=== PATIENT | male | born 1945 | race Caucasian/White ===

== ENCOUNTER 2017-03-25 09:37 | Day surgery (SDC) | payer MEDICARE, OTHER ==
[2017-03-19 08:37] VITALS: BMI 24.0
[~2017-03-25 09:37] MED LIST: LACTATED RINGERS 1,000 ML IV SCH; LIDOCAINE 1% 20 ML VIAL (10MG/ML) FOR IV START INTRADERMA PRN
[2017-03-25 10:44] VITALS: RESP 16; TEMP 97.7
[2017-03-25] MEDS ORDERED: PROPOFOL 10 MG/ML 20 ML VIAL IV ONE (10:58)
[2017-03-25] MEDS ORDERED: LIDOCAINE 1% INJ 10MG/ML (20 ML MDV) ONE (10:58)
--- NOTE | 2017-03-25 11:13 | P.PCN ---
Date of Procedure: 03/25/17 Preoperative Diagnosis: Postoperative Diagnosis: Procedure(s) Performed: BRIEF HISTORY: Patient is a 71-year-old pleasant white male, scheduled for an elective colonoscopy as a part of screening for colorectal neoplasia. His strong family history of colon cancer diagnosed in his mother as well as her maternal grandmother and father at age 70. PROCEDURE PERFORMED: Colonoscopy. PREOPERATIVE DIAGNOSIS: Screening for colon cancer/family history of colon cancer IV sedation per Anesthesia. PROCEDURE: After informed consent was obtained, the patient, was brought into the endoscopy unit. IV sedation was administered by Anesthesia under continuous monitoring. Digital rectal examination was normal. Initially the Olympus CF- 160 flexible video colonoscope was then inserted in the rectum, gradually advanced into the cecum without any difficulty. Careful examination was performed as the scope was gradually being withdrawn. Ileocecal valve and the appendiceal orifice were visualized and appeared normal. Prep was excellent. Mucosa of the cecum, ascending colon, transverse colon, descending colon, sigmoid colon, and rectum appeared normal. Retroflexion was performed in the rectum and grade 2 internal hemorrhoids were seen. The patient tolerated the procedure well. IMPRESSION: Normal-appearing colon from rectum to cecum with no evidence of colorectal neoplasia . Grade 2 internal hemorrhoids. RECOMMENDATIONS: Findings of this examination were discussed with the patient as well as a family. He was advised to have a repeat screening coloscopy in 5 years because of the strong family history of colon cancer Implants: Indications for Procedure: Operative Findings: Description of Procedure:
[2017-03-25 11:34] VITALS: PULSE 78
[2017-03-25 11:50] VITALS: BP 133/84
== END 2017-03-25 12:07 | disposition home or self-care (01) ==
LOC: ORWHC2ENDO 09:37
PROVIDERS: ATTEND Internal Medicine Gastroenterology
DX: Z12.11 Encounter for screening for malignant neoplasm of colon (principal); K64.1 Second degree hemorrhoids; Z80.0 Family history of malignant neoplasm of digestive organs
CPT/HCPCS: J2001; J2704; G0105

== ENCOUNTER → 2018-07-05 | Outpatient (CLI) | payer MEDICARE ==
--- NOTE | 2018-07-05 16:30 | XR ---
EXAMINATION TYPE: XR chest 2V DATE OF EXAM: 07/05/2018 COMPARISON: NONE HISTORY: Cough TECHNIQUE: Frontal and lateral views of the chest are obtained. FINDINGS: Prominent lung volume may be indicative of underlying COPD. Arthropathy noted in the should ers. Spondylosis present in the thoracic spine. Aorta is dense. There is no focal air space opacity, pleural effusion, or pneumothorax seen. The cardiac silhouette size is within normal limits. The o sseous structures are intact. IMPRESSION: No acute cardiopulmonary process.
== END | disposition home or self-care (01) ==
LOC: RADXRMAIN 13:35
PROVIDERS: ATTEND Internal Medicine
DX: R05 Cough (principal)
CPT/HCPCS: 71046

== ENCOUNTER → 2019-07-04 | Outpatient (CLI) | payer MEDICARE ==
[2019-07-04 13:01] LABS: HCT 39.2 % (39.0-53.0); MCH 32.8 pg (25.0-35.0); MCHC 33.2 g/dL (31.0-37.0); MCV 98.6 fL (80.0-100.0); Mean Platelet Volume 5.3; Platelet Count 288 k/uL (150-450); RBC 3.98 m/uL (4.30-5.90); RDW 12.3 % (11.5-15.5); WBC 10.6 k/uL (3.8-10.6)
== END | disposition home or self-care (01) ==
LOC: LABPAT 12:05
PROVIDERS: ATTEND Surgery
DX: Z01.812 Encounter for preprocedural laboratory examination (principal)
CPT/HCPCS: 36415; 85027

== ENCOUNTER 2019-07-06 10:53 | Day surgery (SDC) | payer MEDICARE ==
[2019-07-01 11:49] VITALS: BMI 24.6
[~2019-07-06 10:53] MED LIST changes: +DEXAMETHASONE SOD PHOSPHATE 10 MG/ML 1 ML VIAL IV ONE; +HEPARIN SODIUM,PORCINE 5,000 UNIT/ML 1 ML VIAL SQ ONE; +ONDANSETRON 4 MG/2 ML VIAL IVP ONE
[2019-07-06] MEDS ORDERED: LIDOCAINE 1% 20 ML VIAL (10MG/ML) FOR IV START INTRADERMA ONE (11:55)
--- NOTE | 2019-07-06 12:35 | P.GSHP ---
History of Present Illness H&P Date: 07/06/19 Chief Complaint: Right inguinal hernia This is a 73-year-old male who presents today for laparoscopic robotic-assisted right inguinal hernia. Patient's vital tender mass in the right groin. Past Medical History Past Medical History: No Reported History Additional Past Medical History / Comment(s): inguinal hernia. History of Any Multi-Drug Resistant Organisms: None Reported Past Surgical History: Appendectomy Additional Past Surgical History / Comment(s): appendectomy at 14 yrs old. Past Anesthesia/Blood Transfusion Reactions: No Reported Reaction, Motion Sickness Additional Past Anesthesia/Blood Transfusion Reaction / Comment(s): . Past Psychological History: No Psychological Hx Reported Smoking Status: Never smoker Past Alcohol Use History: None Reported Past Drug Use History: None Reported - Past Family History Mother Family Medical History: Cancer Additional Family Medical History / Comment(s): COLON CANCER Medications and Allergies Home Medications Medication Instructions Recorded Confirmed Type Multivit-Min/FA/Lycopen/Lutein 1 each PO DAILY 07/01/19 07/06/19 History [Centrum Silver Tablet] Allergies Allergy/AdvReac Type Severity Reaction Status Date / Time No Known Allergies Allergy Verified 07/06/19 11:13 Surgical - Exam Vital Signs Temp Pulse Resp BP Pulse Ox 97.7 F 68 18 158/91 96 07/06/19 11:26 07/06/19 11:26 07/06/19 11:26 07/06/19 11:26 07/06/19 11:26 - General well developed, well nourished, no distress - ENT normal pinna - Neck no masses - Respiratory normal expansion - Cardiovascular Rhythm: regular - Abdomen Abdomen: soft, non tender Hernia: reducible (Reducible right inguinal hernia) Assessment and Plan Assessment: Right inguinal hernia. We'll perform laparoscopic robotic-assisted repair.
[2019-07-06] MEDS ORDERED: HYDROmorphone (PF) 1 MG/ML ONE (12:58)
[2019-07-06] MEDS ORDERED: fentaNYL (PF) 50 MCG/ML 2 ML AMP ONE (12:58)
[2019-07-06] MEDS ORDERED: LIDOCAINE 1% INJ 10MG/ML (20 ML MDV) ONE (12:58)
[2019-07-06] MEDS ORDERED: GLYCOPYRROLATE 0.2 MG/ML 2 ML VIAL ONE (12:58)
[2019-07-06] MEDS ORDERED: MIDAZOLAM 2 MG/2 ML VIAL ONE (12:58)
[2019-07-06] MEDS ORDERED: NEOSTIGMINE 1 MG/ML 10 ML VIAL ONE (12:58)
[2019-07-06] MEDS ORDERED: ROCURONIUM BROMIDE 10 MG/ML 10 ML VIAL IV ONE (12:58)
[2019-07-06] MEDS ORDERED: SUCCINYLCHOLINE CHLORIDE 100 MG/5 ML SYR IV ONE (12:58)
[2019-07-06] MEDS ORDERED: PROPOFOL 10 MG/ML 20 ML VIAL IV ONE (12:58)
[2019-07-06] MEDS ORDERED: LIDOCAINE 1%-EPI 1:100,000 20 ML VIAL SQ ONE (13:28)
[2019-07-06 14:16] VITALS: TEMP 97.4
--- NOTE | 2019-07-06 14:19 | P.OP ---
Date of Procedure: 07/06/19 Preoperative Diagnosis: Right inguinal hernia Postoperative Diagnosis: Right inguinal hernia Procedure(s) Performed: Laparoscopic robotic-assisted repair of right inguinal hernia Anesthesia: ALICIA Surgeon: Cam Charles Pathology: none sent Condition: stable Disposition: PACU Description of Procedure: The patient was placed on the operating table in the supine position. The patient received general anesthesia. The patient's abdomen was prepped and draped in usual sterile fashion. The skin was anesthetized 1% local Xylocaine at the incision sites. Using an 11 blade a skin incision was made at the umbilicus. The fascia was grasped with a [place] and then the peritoneal cavity was entered with the Veress needle. Position of the Veress needle was confirmed with a positive drop test. After adequate insufflation a 5 mm trocar was placed into the peritoneal cavity. The Laparoscope was placed the peritoneal cavity. And a robotic 8 mm trocar was placed in the right lateral position and then another 8 mm robotic trochars placed in the left lateral position. The original 5 mm trocar was exchanged for a 12 mm trocar. The patient was placed in reverse Trendelenburg and then the patient was docked to the robot. Next the peritoneum over top of the hernia was incised and then using blunt and sharp dissection and electrocautery the hernia sac was dissected free from the floor of the inguinal canal. The hernia sac was completely reduced into the peritoneal cavity. And then using the Pro edge baster mesh the hernia was repaired. The peritoneum was then sutured with 2-0V lock suture. The patient was then undocked the robot. The needle was withdrawn from the peritoneal cavity. The umbilical trocar site was closed with 0 Ethibond suture. The skin was closed interrupted 3-0 Monocryl suture. Dermabond dressing was applied. Patient was sent to recovery in stable condition.
[2019-07-06] MEDS: HYDROmorphone 0.5 MG/0.5 ML SYRINGE IVP PRN ×2 (14:23→14:33)
[2019-07-06 14:36] VITALS: RESP 16
[2019-07-06 18:09] VITALS: BP 137/86; PULSE 96
== END 2019-07-06 18:39 | disposition home or self-care (01) ==
LOC: OR 10:53
PROVIDERS: ATTEND Surgery
DX: K40.90 Unilateral inguinal hernia, without obstruction or gangrene, not specified as recurrent (principal)
CPT/HCPCS: 49650; C1781; J2250; J1644; J1100; J2710; J0690; J2405; J2001; J3010; J1170 ×2; J0330; J2704

== ENCOUNTER 2020-01-09 10:28 | Emergency (ER) | payer MEDICARE ==
[2020-01-09] MEDS ORDERED: ALBUTEROL HFA INHALER INHALATION STA (11:01)
--- NOTE | 2020-01-09 11:06 | ED ---
General Adult HPI - General Chief complaint: Shortness of Breath Stated complaint: cough Source: patient, RN notes reviewed, old records reviewed Mode of arrival: ambulatory Limitations: no limitations - History of Present Illness Initial comments: This is a 74-year-old male who presents emergency Department complaining of a 2 month history of difficulty breathing and shortness of breath per patient states his been getting progressively worse. Patient states he also is coughing up more more sputum over that same period of time. Patient denies any history of any lung problems she denies ever smoking. Patient denies any fever chills. Patient states he's had no chest pain or palpitations. Patient is he's having a difficult time being active because activity makes him more short of breath. Patient denies any swelling to his legs or calf tenderness. Patient has any recent trips or travel. Patient denies any abdominal pain patient's nausea vomiting diarrhea. - Related Data Home Medications Medication Instructions Recorded Confirmed Multivit-Min/FA/Lycopen/Lutein 1 each PO DAILY 07/01/19 07/06/19 [Centrum Silver Tablet] Previous Rx's Medication Instructions Recorded Docusate [Colace] 100 mg PO BID #20 capsule 07/06/19 HYDROcodone/APAP 5-325MG [[place] 1 tab PO Q6HR PRN #10 tab 07/06/19 5-325] Albuterol Inhaler [Ventolin Hfa 2 puff INHALATION RT-QID 10 Days 01/09/20 Inhaler] #2 puff Azithromycin [Zithromax Tri-Jose] 500 mg PO DAILY #3 tab 01/09/20 predniSONE [Deltasone] 40 mg PO DAILY #8 tab 01/09/20 Allergies Allergy/AdvReac Type Severity Reaction Status Date / Time No Known Allergies Allergy Verified 01/09/20 10:33 Review of Systems ROS Statement: Those systems with pertinent positive or pertinent negative responses have been documented in the HPI. ROS Other: All systems not noted in ROS Statement are negative. Past Medical History Past Medical History: No Reported History Additional Past Medical History / Comment(s): inguinal hernia. History of Any Multi-Drug Resistant Organisms: None Reported Past Surgical History: Appendectomy Additional Past Surgical History / Comment(s): appendectomy at 14 yrs old. Past Anesthesia/Blood Transfusion Reactions: No Reported Reaction, Taiwo juarez Additional Past Anesthesia/Blood Transfusion Reaction / Comment(s): . Past Psychological History: No Psychological Hx Reported Smoking Status: Never smoker Past Alcohol Use History: None Reported Past Drug Use History: None Reported - Past Family History Mother Family Medical History: Cancer Additional Family Medical History / Comment(s): COLON CANCER General Exam - General Exam Comments Initial Comments: GENERAL: Patient is well-developed and well-nourished. Patient is nontoxic and well- hydrated and is in mild distress. ENT: Neck is soft and supple. No significant lymphadenopathy is noted. Oropharynx is clear. Moist mucous membranes. Neck has full range of motion without eliciting any pain. EYES: The sclera were anicteric and conjunctiva were pink and moist. Extraocular movements were intact and pupils were equal round and reactive to light. Eyelids were unremarkable. PULMONARY: Patient is crackles throughout the left lung with expiratory wheezing. Patient also has crackles in the right base. CARDIOVASCULAR: There is a regular rate and rhythm without any murmurs gallops or rubs. ABDOMEN: Soft and nontender with normal bowel sounds. SKIN: Skin is clear with no lesions or rashes and otherwise unremarkable. NEUROLOGIC: Patient is alert and oriented x3. Cranial nerves II through XII are grossly intact. Motor and sensory are also intact. Normal speech, volume and content. Symmetrical smile. MUSCULOSKELETAL: Normal extremities with adequate strength and full range of motion. No lower extremity swelling or edema. No calf tenderness. LYMPHATICS: No significant lymphadenopathy is noted PSYCHIATRIC: Normal psychiatric evaluation. Limitations: no limitations Course Vital Signs 01/09/20 01/09/20 10:30 10:53 Temperature 98.0 F Pulse Rate 82 Respiratory 18 20 Rate Blood Pressure 153/93 O2 Sat by Pulse 96 Oximetry Medical Decision Making - Medical Decision Making Chest x-ray shows no acute abnormality. Patient did receive a Ventolin treatment here and stated he did feel better. Patient continues to have some wheezing and no crackles at this point. Patient feels comfortable going home and follow-up with Dr. Milian EKG shows sinus rhythm at 64 bpm MI interval 160 QRS is 90 QT interval 414 QTC is 427. Patient's EKG shows no ST segment elevation or depression. Patient was given Solu-Medrol and Rocephin prior to leaving. - Lab Data Result diagrams: 01/09/20 11:15 01/09/20 11:15 Lab Results 01/09/20 01/09/20 01/09/20 Range/Units 11:15 11:15 11:15 WBC 7.4 (3.8-10.6) k/uL RBC 4.25 L (4.30-5.90) m/uL Hgb 13.7 (13.0-17.5) gm/dL Hct 41.9 (39.0-53.0) % MCV 98.6 (80.0-100.0) fL MCH 32.2 (25.0-35.0) pg MCHC 32.6 (31.0-37.0) g/dL RDW 12.7 (11.5-15.5) % Plt Count 283 (150-450) k/uL Neutrophils % 57 % Lymphocytes % 17 % Monocytes % 8 % Eosinophils % 14 % Basophils % 1 % Neutrophils # 4.2 (1.3-7.7) k/uL Lymphocytes # 1.3 (1.0-4.8) k/uL Monocytes # 0.6 (0-1.0) k/uL Eosinophils # 1.0 H (0-0.7) k/uL Basophils # 0.1 (0-0.2) k/uL PT 9.8 (9.0-12.0) sec INR 0.9 (<1.2) APTT 22.3 (22.0-30.0) sec D-Dimer 0.54 (<0.60) mg/L FEU Sodium (137-145) mmol/L Potassium (3.5-5.1) mmol/L Chloride (98-107) mmol/L Carbon Dioxide (22-30) mmol/L Anion Gap mmol/L BUN (9-20) mg/dL Creatinine (0.66-1.25) mg/dL Est GFR (CKD-EPI)AfAm (>60 ml/min/1.73 sqM) Est GFR (CKD-EPI)NonAf (>60 ml/min/1.73 sqM) Glucose (74-99) mg/dL Plasma Lactic Acid Gee (0.7-2.0) mmol/L Calcium (8.4-10.2) mg/dL Magnesium (1.6-2.3) mg/dL Total Bilirubin (0.2-1.3) mg/dL AST (17-59) U/L ALT (4-49) U/L Alkaline Phosphatase (38-126) U/L Troponin I (0.000-0.034) ng/mL NT-Pro-B Natriuret Pep 372 pg/mL Total Protein (6.3-8.2) g/dL Albumin (3.5-5.0) g/dL 01/09/20 01/09/20 01/09/20 Range/Units 11:15 11:15 11:15 WBC (3.8-10.6) k/uL RBC (4.30-5.90) m/uL Hgb (13.0-17.5) gm/dL Hct (39.0-53.0) % MCV (80.0-100.0) fL MCH (25.0-35.0) pg MCHC (31.0-37.0) g/dL RDW (11.5-15.5) % Plt Count (150-450) k/uL Neutrophils % % Lymphocytes % % Monocytes % % Eosinophils % % Basophils % % Neutrophils # (1.3-7.7) k/uL Lymphocytes # (1.0-4.8) k/uL Monocytes # (0-1.0) k/uL Eosinophils # (0-0.7) k/uL Basophils # (0-0.2) k/uL PT (9.0-12.0) sec INR (<1.2) APTT (22.0-30.0) sec D-Dimer (<0.60) mg/L FEU Sodium 137 (137-145) mmol/L Potassium 4.9 (3.5-5.1) mmol/L Chloride 103 (98-107) mmol/L Carbon Dioxide 29 (22-30) mmol/L Anion Gap 5 mmol/L BUN 20 (9-20) mg/dL Creatinine 0.92 (0.66-1.25) mg/dL Est GFR (CKD-EPI)AfAm >90 (>60 ml/min/1.73 sqM) Est GFR (CKD-EPI)NonAf 81 (>60 ml/min/1.73 sqM) Glucose 101 H (74-99) mg/dL Plasma Lactic Acid Gee 0.9 (0.7-2.0) mmol/L Calcium 9.3 (8.4-10.2) mg/dL Magnesium 2.1 (1.6-2.3) mg/dL Total Bilirubin 0.4 (0.2-1.3) mg/dL AST 32 (17-59) U/L ALT 17 (4-49) U/L Alkaline Phosphatase 98 (38-126) U/L Troponin I <0.012 (0.000-0.034) ng/mL NT-Pro-B Natriuret Pep pg/mL Total Protein 7.4 (6.3-8.2) g/dL Albumin 3.8 (3.5-5.0) g/dL Disposition Clinical Impression: Bronchitis with bronchospasm Disposition: HOME SELF-CARE Instructions (If sedation given, give patient instructions): Acute Bronchitis (ED), Bronchospasm (ED) Prescriptions: predniSONE [Deltasone] 40 mg PO DAILY #8 tab Albuterol Inhaler [Ventolin Hfa Inhaler] 2 puff INHALATION RT-QID 10 Days #2 puff Azithromycin [Zithromax Tri-Jose] 500 mg PO DAILY #3 tab Is patient prescribed a controlled substance at d/c from ED?: No Referrals: Mireya Srivastava MD [Primary Care Provider] - 1-2 days Time of Disposition: 12:47
[2020-01-09 11:27] LABS: Basophils # (A) 0.1 k/uL (0-0.2); Basophils % (A) 1 %; Eosinophils % (A) 14 %; HCT 41.9 % (39.0-53.0); HGB 13.7 gm/dL (13.0-17.5); Lymphocytes # (A) 1.3 k/uL (1.0-4.8); Lymphocytes % (A) 17 %; MCH 32.2 pg (25.0-35.0); MCHC 32.6 g/dL (31.0-37.0); MCV 98.6 fL (80.0-100.0); Mean Platelet Volume 6.6; Monocytes # (A) 0.6 k/uL (0-1.0); Monocytes % (A) 8 %; Neutrophils # (A) 4.2 k/uL (1.3-7.7); Neutrophils % (A) 57 %; Platelet Count 283 k/uL (150-450); RBC 4.25 m/uL (4.30-5.90); RDW 12.7 % (11.5-15.5); WBC 7.4 k/uL (3.8-10.6)
[2020-01-09 11:37] LABS: ALT 17 U/L (4-49); AST 32 U/L (17-59); African American GFR (CKD) >90 (>60 ml/min/1.73 sqM); Albumin 3.8 g/dL (3.5-5.0); Alkaline Phosphatase 98 U/L (38-126); Anion Gap 5 mmol/L; Blood Urea Nitrogen 20 mg/dL (9-20); Calcium 9.3 mg/dL (8.4-10.2); Carbon Dioxide 29 mmol/L (22-30); Chloride 103 mmol/L (98-107); Glucose 101 mg/dL (74-99); Magnesium 2.1 mg/dL (1.6-2.3); Non-African American GFR(CKD) 81 (>60 ml/min/1.73 sqM); Potassium 4.9 mmol/L (3.5-5.1); Sodium 137 mmol/L (137-145); Total Bilirubin 0.4 mg/dL (0.2-1.3); Total Protein 7.4 g/dL (6.3-8.2)
--- NOTE | 2020-01-09 11:40 | XR ---
EXAMINATION TYPE: XR chest 1V portable DATE OF EXAM: 01/09/2020 HISTORY: Shortness of breath. COMPARISON: 07/05/18 TECHNIQUE: Single view of the chest is submitted. FINDINGS: Demonstrated are scattered senescent parenchymal change. There is no evidence for focal infiltrate. The heart is stable. Hilar and mediastinal structures are within normal limits. Degenerative changes are seen of the dorsal spine. IMPRESSION: 1. Chronic changes without evidence for acute pulmonary disease.
[2020-01-09 11:41] LABS: D-Dimer 0.54 mg/L FEU (<0.60); INR 0.9 (<1.2); Partial Thromboplastin Time 22.3 sec (22.0-30.0); Prothrombin Time 9.8 sec (9.0-12.0)
[2020-01-09] MEDS ORDERED: methylPREDNISolone SOD SUCCI 125 MG/2 ML VIAL IV STA (12:49)
[2020-01-09] MEDS ORDERED: cefTRIAXone IN SWFI 1,000 MG/10 ML SYRINGE IVP STA (12:49)
[2020-01-09 13:03] VITALS: BP 122/85; PULSE 60; RESP 18; TEMP 98.1
== END 2020-01-09 13:10 | disposition home or self-care (01) ==
LOC: EC 10:28
DX: J40 Bronchitis, not specified as acute or chronic (principal); J98.01 Acute bronchospasm
CPT/HCPCS: 36415; 94640; 93005; 85379; 83880; 80053; 83605; 83735; 84484; 85025; 85610; 85730; 71045; 99285; 96374; 96375; J2930; J0696

== ENCOUNTER 2020-02-06 16:12 | Inpatient (IN) | payer MEDICARE ==
--- NOTE | 2020-02-06 16:40 | ED ---
SOB HPI - General Chief Complaint: Shortness of Breath Stated Complaint: SOB Time Seen by Provider: 02/06/20 16:36 Source: patient, RN notes reviewed, old records reviewed Mode of arrival: ambulatory Limitations: no limitations - History of Present Illness Initial Comments: This is a 74-year-old male DF for evaluation patient with severe shortness of br eath persistent breathing and not breathing well currently. Patient has nausea weakness not feeling well severe shortness of breath no specific chest pain. Patient is recent hospital admission for same symptoms going on for 2 weeks. 2 months. Patient states is breathing is just not getting better in for [place] significantly worse MD Complaint: shortness of breath, "asthma attack", anxiety -: week(s) Severity: moderate Severity scale (1-10): 4 Quality: aching Consistency: constant Improves With: nothing Worsens With: nothing Known History Of: COPD, asthma Associated Symptoms: chest pain, pain with inspiration, cough, sputum production Treatments Prior to Arrival: none - Related Data Home Medications Medication Instructions Recorded Confirmed Multivit-Min/FA/Lycopen/Lutein 1 each PO DAILY 07/01/19 02/06/20 [Centrum Silver Tablet] Acetaminophen [Tylenol] 650 mg PO Q6H PRN 02/06/20 02/06/20 Ubidecarenone [Co Q-10] 100 mg PO DAILY 02/06/20 02/06/20 Allergies Allergy/AdvReac Type Severity Reaction Status Date / Time No Known Allergies Allergy Verified 02/06/20 18:33 Review of Systems ROS Statement: Those systems with pertinent positive or pertinent negative responses have been documented in the HPI. ROS Other: All systems not noted in ROS Statement are negative. Past Medical History Past Medical History: No Reported History Additional Past Medical History / Comment(s): inguinal hernia. History of Any Multi-Drug Resistant Organisms: None Reported Past Surgical History: Appendectomy Additional Past Surgical History / Comment(s): appendectomy at 14 yrs old. Past Anesthesia/Blood Transfusion Reactions: No Reported Reaction, Motion Sickness Additional Past Anesthesia/Blood Transfusion Reaction / Comment(s): . Past Psychological History: No Psychological Hx Reported Smoking Status: Never smoker Past Alcohol Use History: None Reported Past Drug Use History: None Reported - Past Family History Mother Family Medical History: Cancer Additional Family Medical History / Comment(s): COLON CANCER General Exam Limitations: no limitations General appearance: alert, anxious, in distress Head exam: Present: atraumatic, normocephalic, normal inspection Eye exam: Present: normal appearance, PERRL, EOMI. Absent: scleral icterus, conjunctival injection, periorbital swelling ENT exam: Present: normal exam, mucous membranes moist Neck exam: Present: normal inspection. Absent: tenderness, meningismus, lymphadenopathy Respiratory exam: Present: respiratory distress, wheezes, accessory muscle use, decreased breath sounds, prolonged expiratory. Absent: rales, rhonchi, stridor Cardiovascular Exam: Present: regular rate, normal rhythm, normal heart sounds. Absent: systolic murmur, diastolic murmur, rubs, gallop, clicks GI/Abdominal exam: Present: soft, normal bowel sounds. Absent: distended, tenderness, guarding, rebound, rigid Extremities exam: Present: normal inspection, full ROM, normal capillary refill. Absent: tenderness, pedal edema, joint swelling, calf tenderness Back exam: Present: normal inspection Neurological exam: Present: alert, oriented X3, CN II-XII intact Psychiatric exam: Present: normal affect, normal mood Skin exam: Present: warm, dry, intact, normal color. Absent: rash Course Vital Signs 02/06/20 02/06/20 02/06/20 16:16 17:33 19:06 Temperature 97.6 F 97.8 F Pulse Rate 85 76 Respiratory 18 28 H Rate Blood Pressure 173/87 179/101 O2 Sat by Pulse 95 98 Oximetry 02/06/20 02/06/20 02/06/20 19:38 19:53 20:02 Temperature Pulse Rate 98 96 84 Respiratory Rate Blood Pressure O2 Sat by Pulse Oximetry 02/06/20 02/06/20 20:13 20:31 Temperature Pulse Rate 77 86 Respiratory Rate Blood Pressure O2 Sat by Pulse Oximetry - Reevaluation(s) Reevaluation #1: 02/06/20 21:17 Medical records reviewed Reevaluation #2: 02/06/20 21:17 Patient has significant decompensation here in the ER which improved with medication blood pressure treatment anxiolysis breathing treatments and BiPAP - Consultations Consultation #1: Spoke with sound were agreeable for admission Medical Decision Making - Medical Decision Making 74 male to the ED co inability to breathe severe SOB, patient is improving on BiPAP and persistent continuous breathing treatments, will admit on BiPAP and persistent breathing treatments - Lab Data Result diagrams: 02/06/20 17:19 02/06/20 17:19 Lab Results 02/06/20 02/06/20 02/06/20 Range/Units 17:19 17:19 17:19 WBC 8.2 (3.8-10.6) k/uL RBC 4.47 (4.30-5.90) m/uL Hgb 14.0 (13.0-17.5) gm/dL Hct 44.1 (39.0-53.0) % MCV 98.6 (80.0-100.0) fL MCH 31.3 (25.0-35.0) pg MCHC 31.8 (31.0-37.0) g/dL RDW 12.9 (11.5-15.5) % Plt Count 337 (150-450) k/uL Neutrophils % 56 % Lymphocytes % 19 % Monocytes % 7 % Eosinophils % 15 % Basophils % 1 % Neutrophils # 4.6 (1.3-7.7) k/uL Lymphocytes # 1.5 (1.0-4.8) k/uL Monocytes # 0.6 (0-1.0) k/uL Eosinophils # 1.2 H (0-0.7) k/uL Basophils # 0.1 (0-0.2) k/uL PT 9.6 (9.0-12.0) sec INR 0.9 (<1.2) APTT 22.1 (22.0-30.0) sec D-Dimer 0.54 (<0.60) mg/L FEU VBG pH (7.31-7.41) VBG pCO2 (37-51) mmHg VBG HCO3 (24-28) mmol/L Carbon Monoxide, Quant (<10.0) % Sodium 139 (137-145) mmol/L Potassium 4.4 (3.5-5.1) mmol/L Chloride 104 (98-107) mmol/L Carbon Dioxide 27 (22-30) mmol/L Anion Gap 8 mmol/L BUN 23 H (9-20) mg/dL Creatinine 0.87 (0.66-1.25) mg/dL Est GFR (CKD-EPI)AfAm >90 (>60 ml/min/1.73 sqM) Est GFR (CKD-EPI)NonAf 85 (>60 ml/min/1.73 sqM) Glucose 97 (74-99) mg/dL Plasma Lactic Acid Gee (0.7-2.0) mmol/L Calcium 9.6 (8.4-10.2) mg/dL Magnesium 2.1 (1.6-2.3) mg/dL Total Bilirubin 0.5 (0.2-1.3) mg/dL AST 34 (17-59) U/L ALT 21 (4-49) U/L Alkaline Phosphatase 97 (38-126) U/L Lactate Dehydrogenase 417 (313-618) U/L C-Reactive Protein <5.0 (<10.0) mg/L NT-Pro-B Natriuret Pep pg/mL Total Protein 8.0 (6.3-8.2) g/dL Albumin 4.4 (3.5-5.0) g/dL 02/06/20 02/06/20 02/06/20 Range/Units 17:19 19:06 19:35 WBC (3.8-10.6) k/uL RBC (4.30-5.90) m/uL Hgb (13.0-17.5) gm/dL Hct (39.0-53.0) % MCV (80.0-100.0) fL MCH (25.0-35.0) pg MCHC (31.0-37.0) g/dL RDW (11.5-15.5) % Plt Count (150-450) k/uL Neutrophils % % Lymphocytes % % Monocytes % % Eosinophils % % Basophils % % Neutrophils # (1.3-7.7) k/uL Lymphocytes # (1.0-4.8) k/uL Monocytes # (0-1.0) k/uL Eosinophils # (0-0.7) k/uL Basophils # (0-0.2) k/uL PT (9.0-12.0) sec INR (<1.2) APTT (22.0-30.0) sec D-Dimer (<0.60) mg/L FEU VBG pH 7.30 L (7.31-7.41) VBG pCO2 62 H (37-51) mmHg VBG HCO3 29 H (24-28) mmol/L Carbon Monoxide, Quant (<10.0) % Sodium (137-145) mmol/L Potassium (3.5-5.1) mmol/L Chloride (98-107) mmol/L Carbon Dioxide (22-30) mmol/L Anion Gap mmol/L BUN (9-20) mg/dL Creatinine (0.66-1.25) mg/dL Est GFR (CKD-EPI)AfAm (>60 ml/min/1.73 sqM) Est GFR (CKD-EPI)NonAf (>60 ml/min/1.73 sqM) Glucose (74-99) mg/dL Plasma Lactic Acid Gee 1.1 (0.7-2.0) mmol/L Calcium (8.4-10.2) mg/dL Magnesium (1.6-2.3) mg/dL Total Bilirubin (0.2-1.3) mg/dL AST (17-59) U/L ALT (4-49) U/L Alkaline Phosphatase (38-126) U/L Lactate Dehydrogenase (313-618) U/L C-Reactive Protein (<10.0) mg/L NT-Pro-B Natriuret Pep 302 pg/mL Total Protein (6.3-8.2) g/dL Albumin (3.5-5.0) g/dL 02/06/20 Range/Units 19:35 WBC (3.8-10.6) k/uL RBC (4.30-5.90) m/uL Hgb (13.0-17.5) gm/dL Hct (39.0-53.0) % MCV (80.0-100.0) fL MCH (25.0-35.0) pg MCHC (31.0-37.0) g/dL RDW (11.5-15.5) % Plt Count (150-450) k/uL Neutrophils % % Lymphocytes % % Monocytes % % Eosinophils % % Basophils % % Neutrophils # (1.3-7.7) k/uL Lymphocytes # (1.0-4.8) k/uL Monocytes # (0-1.0) k/uL Eosinophils # (0-0.7) k/uL Basophils # (0-0.2) k/uL PT (9.0-12.0) sec INR (<1.2) APTT (22.0-30.0) sec D-Dimer (<0.60) mg/L FEU VBG pH (7.31-7.41) VBG pCO2 (37-51) mmHg VBG HCO3 (24-28) mmol/L Carbon Monoxide, Quant 1.1 (<10.0) % Sodium (137-145) mmol/L Potassium (3.5-5.1) mmol/L Chloride (98-107) mmol/L Carbon Dioxide (22-30) mmol/L Anion Gap mmol/L BUN (9-20) mg/dL Creatinine (0.66-1.25) mg/dL Est GFR (CKD-EPI)AfAm (>60 ml/min/1.73 sqM) Est GFR (CKD-EPI)NonAf (>60 ml/min/1.73 sqM) Glucose (74-99) mg/dL Plasma Lactic Acid Gee (0.7-2.0) mmol/L Calcium (8.4-10.2) mg/dL Magnesium (1.6-2.3) mg/dL Total Bilirubin (0.2-1.3) mg/dL AST (17-59) U/L ALT (4-49) U/L Alkaline Phosphatase (38-126) U/L Lactate Dehydrogenase (313-618) U/L C-Reactive Protein (<10.0) mg/L NT-Pro-B Natriuret Pep pg/mL Total Protein (6.3-8.2) g/dL Albumin (3.5-5.0) g/dL - EKG Data -: EKG Interpreted by Me (EKG shows A. fib rate of 82, QRS 84 QTc 472) - Radiology Data Radiology results: report reviewed (CXR is negative for acute disaseas), image reviewed Critical Care Time Critical Care Time: Yes Total Critical Care Time: 31 Disposition Clinical Impression: Bronchitis with bronchospasm, Hypoxia Disposition: ADMITTED IP TO THIS HOSP Condition: Fair Is patient prescribed a controlled substance at d/c from ED?: No Referrals: Mireya Srivastava MD [Primary Care Provider] - 1-2 days
--- NOTE | 2020-02-06 17:31 | XR ---
EXAMINATION TYPE: XR chest 1V portable DATE OF EXAM: 02/06/2020 COMPARISON: 01/09/2020 HISTORY: Pneumonia Chest pain and cough TECHNIQUE: FINDINGS: There is no heart failure nor confluent pneumonic infiltrate. Costophrenic angles are clear . There are no hilar masses. There are chest leads. Bony thorax is intact. IMPRESSION: No active cardiopulmonary disease. Normal heart. No change.
[2020-02-06 17:33] LABS: Basophils # (A) 0.1 k/uL (0-0.2); Basophils % (A) 1 %; Eosinophils # (A) 1.2 k/uL (0-0.7); Eosinophils % (A) 15 %; HCT 44.1 % (39.0-53.0); Lymphocytes # (A) 1.5 k/uL (1.0-4.8); Lymphocytes % (A) 19 %; MCH 31.3 pg (25.0-35.0); MCHC 31.8 g/dL (31.0-37.0); MCV 98.6 fL (80.0-100.0); Mean Platelet Volume 6.5; Monocytes # (A) 0.6 k/uL (0-1.0); Monocytes % (A) 7 %; Neutrophils # (A) 4.6 k/uL (1.3-7.7); Neutrophils % (A) 56 %; Platelet Count 337 k/uL (150-450); RBC 4.47 m/uL (4.30-5.90); RDW 12.9 % (11.5-15.5); WBC 8.2 k/uL (3.8-10.6)
[2020-02-06 17:45] LABS: Potassium 4.4 mmol/L (3.5-5.1)
[2020-02-06 17:48] LABS: ALT 21 U/L (4-49); AST 34 U/L (17-59); African American GFR (CKD) >90 (>60 ml/min/1.73 sqM); Albumin 4.4 g/dL (3.5-5.0); Alkaline Phosphatase 97 U/L (38-126); Anion Gap 8 mmol/L; Blood Urea Nitrogen 23 mg/dL (9-20); C Reactive Protein <5.0 mg/L (<10.0); Calcium 9.6 mg/dL (8.4-10.2); Carbon Dioxide 27 mmol/L (22-30); Chloride 104 mmol/L (98-107); Glucose 97 mg/dL (74-99); LDH 417 U/L (313-618); Magnesium 2.1 mg/dL (1.6-2.3); Non-African American GFR(CKD) 85 (>60 ml/min/1.73 sqM); Sodium 139 mmol/L (137-145); Total Bilirubin 0.5 mg/dL (0.2-1.3)
[2020-02-06 17:53] LABS: D-Dimer 0.54 mg/L FEU (<0.60); INR 0.9 (<1.2); Partial Thromboplastin Time 22.1 sec (22.0-30.0); Prothrombin Time 9.6 sec (9.0-12.0)
[2020-02-06] MEDS ORDERED: IPRATROPIUM-ALBUTEROL 3 ML NEB INHALATION STA (19:25)
[2020-02-06] MEDS ORDERED: LORazepam 2 MG/ML INJ IV STA (19:31)
[2020-02-06] MEDS ORDERED: MORPHINE SULFATE 2 MG/ML SYRINGE IVP STA ×2 (19:31→19:44)
[2020-02-06] MEDS ORDERED: ENALAPRILAT 1.25 MG/ML 1 ML VIAL IVP STA (19:41)
[2020-02-06] MEDS ORDERED: DILTIAZEM DRIP BOLUS FROM BAG 1 MG SOLN IV ONE (19:41)
[2020-02-06] MEDS ORDERED: DEXAMETHASONE SOD PHOSPHATE 10 MG/ML 1 ML VIAL IV STA (19:44)
[2020-02-06] MEDS ORDERED: DILTIAZEM 125 MG in SODIUM CHLORIDE 0.9% 100 ML IV SCH (19:45)
[2020-02-06 19:52] LABS: VBG PH 7.3 (7.31-7.41)
[2020-02-06] MEDS ORDERED: IPRATROPIUM 0.5 MG/2.5 ML NEBU INHALATION STA (19:57)
[2020-02-06] MEDS ORDERED: ALBUTEROL NEBULIZED 2.5 MG/3 ML INHALATION STA (19:57)
--- NOTE | 2020-02-06 20:24 | XR ---
EXAMINATION TYPE: XR soft tissue neck DATE OF EXAM: 02/06/2020 COMPARISON: NONE HISTORY: Cough. Short of breath TECHNIQUE: 2 views FINDINGS: Epiglottis is normal. Prevertebral soft tissues appear normal. Subglottic trachea appears n ormal. There is no evidence of soft tissue air. IMPRESSION: Negative cervical soft tissue exam.
[2020-02-06] MEDS ORDERED: ALBUTEROL NEBULIZED 2.5 MG/3 ML INHALATION PRN (21:07)
[2020-02-06] MEDS: SODIUM CHLORIDE 0.9% 1,000 ML IV SCH (21:16)
[2020-02-06 23:04] LABS: Glucose,Whole Blood 168 mg/dL (75-99)
[2020-02-07 01:10] LABS: Ferritin 16.7 ng/mL (22.0-322.0)
[2020-02-07] MEDS ORDERED: IPRATROPIUM-ALBUTEROL 3 ML NEB INHALATION PRN (01:10)
--- NOTE | 2020-02-07 01:13 | P.HPIM ---
History of Present Illness H&P Date: 02/06/20 The patient is a 74-year-old male with no known PMH who presented to the ED with complaints of gradually worsening shortness of breath and cough over the past 3 months. The patient notes that he had been attempting to get an appointment with Dr. Milian though had not been able to due to Covid. He notes that his breathing has gradually deteriorated over the past few months, and his exercise tolerance has been significantly reduced. He reports a cough productive of yellow to white phlegm. 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 He otherwise denied chest discomfort, nausea, vomiting, diaphoresis, or dizziness. He also denied abdominal pain, diarrhea, fever, or chills. He underwent an extensive evaluation in the emergency room with CBC unremarkable, VBG showing pH 7.30 and pCO2 62. Remaining laboratory evaluation revealed a BNP of 302, pro calcitonin 0.08, BUN 23, creatinine 0.87, and glucose 168. EKG revealed sinus rhythm with APCs at 73 bpm with chest and neck x-ray unremarkable. Review of Systems Pertinent positives and negatives as discussed in HPI, a complete review of systems was performed and all other systems are negative. Past Medical History Past Medical History: No Reported History Additional Past Medical History / Comment(s): inguinal hernia. History of Any Multi-Drug Resistant Organisms: None Reported Past Surgical History: Appendectomy Additional Past Surgical History / Comment(s): appendectomy at 14 yrs old. Past Anesthesia/Blood Transfusion Reactions: No Reported Reaction, Motion Sickness Additional Past Anesthesia/Blood Transfusion Reaction / Comment(s): . Past Psychological History: No Psychological Hx Reported Smoking Status: Never smoker Past Alcohol Use History: None Reported Past Drug Use History: None Reported - Past Family History Mother Family Medical History: Cancer Additional Family Medical History / Comment(s): COLON CANCER Medications and Allergies Home Medications Medication Instructions Recorded Confirmed Type Multivit-Min/FA/Lycopen/Lutein 1 each PO DAILY 07/01/19 02/06/20 History [Centrum Silver Tablet] Acetaminophen [Tylenol] 650 mg PO Q6H PRN 02/06/20 02/06/20 History Ubidecarenone [Co Q-10] 100 mg PO DAILY 02/06/20 02/06/20 History Allergies Allergy/AdvReac Type Severity Reaction Status Date / Time No Known Allergies Allergy Verified 02/06/20 18:33 Physical Exam Vitals: Vital Signs Temp Pulse Resp BP Pulse Ox 02/06/20 20:31 86 02/06/20 20:30 78 20 120/71 94 L 02/06/20 20:13 77 02/06/20 20:02 84 02/06/20 20:00 82 28 H 122/82 95 02/06/20 19:53 93 30 H 144/99 97 02/06/20 19:38 98 02/06/20 19:30 187/107 02/06/20 19:06 76 28 H 179/101 98 02/06/20 17:33 97.8 F 02/06/20 16:16 97.6 F 85 18 173/87 95 Intake and Output 02/06/20 02/06/20 02/06/20 06:59 14:59 22:59 Other: Weight 73.482 kg General: non toxic, no distress, appears at stated age, normal weight Derm: no unusual rashes/lesions no unusual ecchymoses, warm, dry Head: atraumatic, normocephalic, symmetric Eyes: EOMI, no lid lag, anicteric sclera, pupils equal round reactive to light ENT: Nose and ears atraumatic, no thrush, no pharyngeal erythema Neck: No thyromegaly, no cervical lymphadenopathy, trachea midline, supple Mouth: no lip lesion, mucus membranes moist Cardiovascular: S1S2 reg, no murmur, positive posterior tibial pulse bilateral, no edema, capillary refill less than 2 seconds Lungs: Bilateral rhonchi appreciated throughout with expiratory wheezing, no rales appreciated, no accessory muscle use Abdominal: soft, nontender to palpation, no guarding, no appreciable organomegaly, normal bowel sounds Ext: no gross muscle atrophy, muscle strength 5 out of 5 in all 4 extremities grossly, no contractures, Neuro: CN II-XI grossly intact, light touch intact all 4 extremities, finger to nose within normal limits, Psych: Alert, oriented, appropriate affect Results CBC & Chem 7: 02/06/20 17:19 02/06/20 17:19 Labs: Abnormal Lab Results - Last 24 Hours (Table) 02/06/20 02/06/20 02/06/20 Range/Units 17:19 17:19 19:35 Eosinophils # 1.2 H (0-0.7) k/uL VBG pH 7.30 L (7.31-7.41) VBG pCO2 62 H (37-51) mmHg VBG HCO3 29 H (24-28) mmol/L BUN 23 H (9-20) mg/dL Assessment and Plan Plan: Acute COPD exacerbation -Continue with DuoNeb's and Solu-Medrol -BiPAP when necessary -Supplemental oxygen -Pulmonary consult Abnormal EKG -Patient was initially suspected of having A. fib in ED, though further inspection reveals sinus rhythm with APCs Prerenal azotemia -Continue with gentle hydration and monitor BMP DVT prophylaxis -Lovenox The patient is admitted with an anticipated greater than 2 midnight stay for evaluation of acute COPD exacerbation CODE STATUS: No Code with instructions Discussed with: Patient Anticipated discharge date: 2-[address]: Home A total of 40 minutes was spent on the care of this complex patient more than 50% of the time was spent in counseling and care coordination.
--- NOTE | 2020-02-07 01:17 | P.PN ---
Progress Note - Text Progress Note Date: 02/07/20 Advanced Care Planning Active Diagnosis: Acute COPD exacerbation Persons present: Patient, Summary: Discussed the patient's goals of care and extensive detail. The patient and his at the bedside both noted that at the patient's age, he does not wish to undergo CPR or be placed on life support in the event of a cardiac arrest. The patient however is agreeable to all elective forms of life support including ventilator, dialysis, feeding tube, or IV pressors. Discussed the different forms of life support. Will make the patient no code with instructions. Time spent: Total time spent face to face in education and discussion directly related to advanced care plannin minutes
[2020-02-07] MEDS: methylPREDNISolone SOD SUCCI 125 MG/2 ML VIAL IV SCH ×3 (01:37→12:43)
[2020-02-07 05:54] LABS: Basophils % (A) 0 %; Eosinophils # (A) 0.1 k/uL (0-0.7); Eosinophils % (A) 1 %; HGB 12.5 gm/dL (13.0-17.5); Lymphocytes # (A) 0.4 k/uL (1.0-4.8); Lymphocytes % (A) 8 %; MCH 33.2 pg (25.0-35.0); MCHC 32.9 g/dL (31.0-37.0); MCV 101.2 fL (80.0-100.0); Macrocytosis Slight; Monocytes # (A) 0.1 k/uL (0-1.0); Monocytes % (A) 1 %; Neutrophils # (A) 4.1 k/uL (1.3-7.7); Neutrophils % (A) 89 %; Platelet Count 286 k/uL (150-450); RBC 3.76 m/uL (4.30-5.90); WBC 4.6 k/uL (3.8-10.6)
[2020-02-07 06:03] LABS: African American GFR (CKD) >90 (>60 ml/min/1.73 sqM); Anion Gap 7 mmol/L; Blood Urea Nitrogen 24 mg/dL (9-20); Calcium 8.6 mg/dL (8.4-10.2); Carbon Dioxide 23 mmol/L (22-30); Chloride 108 mmol/L (98-107); Glucose 170 mg/dL (74-99); Non-African American GFR(CKD) >90 (>60 ml/min/1.73 sqM); Potassium 4.6 mmol/L (3.5-5.1); Sodium 138 mmol/L (137-145)
[2020-02-07] MEDS: SODIUM CHLORIDE 0.9% 1,000 ML IV SCH (06:35)
[2020-02-07 07:00] LABS: Glucose,Whole Blood 161 mg/dL (75-99)
[2020-02-07] MEDS: INSULIN ASPART (NovoLOG) 100 UNIT/ML VIAL SQ SCH ×2 (07:16→12:47)
[2020-02-07] MEDS ORDERED: INSULIN ASPART (NovoLOG) 100 UNIT/ML VIAL SQ SCH (07:30)
[2020-02-07] MEDS: IPRATROPIUM-ALBUTEROL 3 ML NEB INHALATION SCH ×3 (08:04→17:36)
[2020-02-07] MEDS ORDERED: ENOXAPARIN 40 MG/0.4 ML SYRINGE SQ SCH (09:00)
--- NOTE | 2020-02-07 10:18 | XR ---
EXAMINATION TYPE: XR chest 1V portable DATE OF EXAM: 02/07/2020 COMPARISON: Prior chest x-ray dated 02/06/2020 HISTORY: Shortness of breath TECHNIQUE: Single frontal view of the chest is obtained. FINDINGS: Patient is rotated. There are overlying cardiac leads. Aorta is dense. Prominent lung volu mes may be indicative of underlying COPD. There is no focal air space opacity, pleural effusion, or p neumothorax seen. The cardiac silhouette size is within normal limits. The osseous structures are intact. IMPRESSION: No acute process. Additional findings above.
--- NOTE | 2020-02-07 11:58 | CT ---
EXAMINATION TYPE: CT chest wo con DATE OF EXAM: 02/07/2020 COMPARISON: Cough HISTORY: Bronchiectasis. CT DLP: 327.7 mGycm. Automated Exposure Control for Dose Reduction was Utilized. TECHNIQUE: CT scan of the thorax is performed without IV contrast. FINDINGS: LUNGS: Within the left upper lobe posterior segment. The groundglass somewhat irregular 1.1 cm area o f consolidation likely postinflammatory or infectious. No pneumothorax or pleural effusion. Linear ch anges at the lung bases compatible scarring or atelectasis. Mild central bronchiectasis. Calcified gr anuloma left upper lobe. MEDIASTINUM: Lack of IV contrast is noted to limit evaluation for mediastinal and especially hilar ad enopathy. There are no definitive greater than 1 cm hilar or mediastinal lymph nodes. Coronary artery calcification noted in the heart is mildly prominent. Atherosclerotic change aorta. Tiny pericardial effusion noted.. OTHER: Hypertrophic and degenerative change of the spine.. IMPRESSION: 1. Mild central bronchiectasis. 2. There is a 1.1 cm groundglass area of consolidation left upper lobe posterior segment likely posti nflammatory short-term follow-up is recommended to exclude other etiologies. 3. Left upper lobe granuloma.
--- NOTE | 2020-02-07 12:45 | P.CNPUL ---
History of Present Illness Consult date: 02/07/20 Requesting physician: Jayjay Mata Reason for consult: dyspnea, cough, asthma Chief complaint: Shortness of breath, cough and wheezing. History of present illness: This is a 74-year-old white male with no significant past medical history except for previous inguinal hernia repair and appendectomy. Patient never smoked, never diagnosed with asthma. Denies any symptoms of GERD, but for the last 3 months patient has been complaining of recurrent episodes of cough wheezing and shortness of breath. A few weeks ago he had an episode were in he was given a course of prednisone burst and taper along with antibiotics, and his symptoms have completely resolved. However as he finished his course of prednisone burst and taper, symptoms seem to be coming back again. Describes the cough as produ ctive with yellow phlegm, describes significant amount of sputum production to the point that he cannot clear it on his own. Last night he was seen in the ER, chest x-ray showed no evidence of active disease. Patient was given Decadron, placed on bronchodilators, admitted to the ICU, and I saw him on consultation this morning. By the time I saw the patient, he seems to be doing much better, hardly any cough, he has minimal wheezing, and his shortness of breath is significantly improved. Again the patient denies any history of COPD denies any smoking history. Denies any history of asthma as a child, denies any history of bronchiectasis. Denies any specific ALLERGIES but he does have seasonal ALLERGIC rhinitis and environmental ALLERGIES. Denies any symptoms of GERD Review of Systems Constitutional: Denies fever chills or weight loss. HEENT: Denies any blurred vision dizziness or throat but he does have symptoms of ALLERGIC rhinitis. Pulmonary: As noted in HPI. Cardiac: Denies any palpitations denies any orthopnea denies any PND. GI: Denies any symptoms of GERD, no nausea no vomiting no abdominal pain no melena no hematemesis. Genitourinary: Denies any dysuria frequency urgency or hematuria. Musculoskeletal: Denies any deformities or limitation of range of motion. Endocrine: Denies any heat or cold intolerance. Denies any polyuria polyphagia or polydipsia. Skin: Denies any rashes. Psychiatric: Denies any symptoms of depression. Neurologic: Denies any headache blurred vision or dizziness. Denies any syncope. Past Medical History Past Medical History: No Reported History Additional Past Medical History / Comment(s): inguinal hernia. History of Any Multi-Drug Resistant Organisms: None Reported Past Surgical History: Appendectomy Additional Past Surgical History / Comment(s): appendectomy at 14 yrs old. Past Anesthesia/Blood Transfusion Reactions: No Reported Reaction, Motion Sickness Additional Past Anesthesia/Blood Transfusion Reaction / Comment(s): . Past Psychological History: No Psychological Hx Reported Smoking Status: Never smoker Past Alcohol Use History: None Reported Past Drug Use History: None Reported - Past Family History Mother Family Medical History: Cancer Additional Family Medical History / Comment(s): COLON CANCER Medications and Allergies Home Medications Medication Instructions Recorded Confirmed Type Multivit-Min/FA/Lycopen/Lutein 1 each PO DAILY 07/01/19 02/06/20 History [Centrum Silver Tablet] Acetaminophen [Tylenol] 650 mg PO Q6H PRN 02/06/20 02/06/20 History Ubidecarenone [Co Q-10] 100 mg PO DAILY 02/06/20 02/06/20 History Allergies Allergy/AdvReac Type Severity Reaction Status Date / Time No Known Allergies Allergy Verified 02/06/20 18:33 Physical Exam Vitals: Vital Signs Temp Pulse Pulse Resp BP BP Pulse Ox 02/07/20 12:03 75 02/07/20 11:51 74 02/07/20 08:17 74 02/07/20 08:04 72 02/07/20 08:00 98.8 F 62 56 L 14 128/90 94 L 02/07/20 07:00 70 22 128/90 96 02/07/20 06:00 86 24 104/73 96 02/07/20 05:00 61 18 105/66 95 02/07/20 04:00 97.6 F 63 56 L 18 105/64 95 02/07/20 03:00 69 17 97/69 94 L 02/07/20 02:00 78 27 H 96/77 95 02/07/20 01:00 73 16 120/72 95 02/07/20 00:25 72 02/07/20 00:13 68 02/07/20 00:00 67 72 20 101/76 97 02/06/20 23:15 97.8 F 72 17 118/71 96 02/06/20 22:34 97.8 F 68 18 102/67 96 02/06/20 22:30 73 18 119/72 95 02/06/20 21:30 82 22 120/80 93 L 02/06/20 21:00 75 22 97/66 97 02/06/20 20:31 86 02/06/20 20:30 78 20 120/71 94 L 02/06/20 20:13 77 02/06/20 20:02 84 02/06/20 20:00 82 28 H 122/82 95 02/06/20 19:53 93 30 H 144/99 97 02/06/20 19:38 98 02/06/20 19:30 187/107 02/06/20 19:06 76 28 H 179/101 98 02/06/20 17:33 97.8 F 02/06/20 16:16 97.6 F 85 18 173/87 95 Intake and Output 02/06/20 02/07/20 02/07/20 22:59 06:59 14:59 Intake Total 100 800 Output Total 0 0 Balance 100 800 Intake: IV 100 800 Sodium Chloride 0.9% 1, 100 800 000 ml @ 100 mls/hr IV . Q10H [facility] Rx#:[id number] Output: Urine 0 0 Other: Weight 76.1 kg 76.1 kg Physical Exam Gen.: Revealed a 74-year-old white male in no distress. Head: Atraumatic, normocephalic. HEENT:[Neck is supple.] [No neck masses.] [No thyromegaly.] [No JVD.] Chest: [Diminished breath sounds at the bases, wheezing on forced expiratory maneuver noted bilaterally..] Cardiac Exam: [Normal S1 and S2, no S3 gallop, no murmur.] Abdomen: [Soft, nontender, no megaly, no rebound, no guarding, normal bowel so unds.] Extremities: [No clubbing, no edema, no cyanosis.] Neurological Exam: [No focal neurologic deficit.] Alert and oriented 3. Psychiatric: Normal mood, affect and normal mental status examination. Skin: No rashes. Lymphatics: No lymphadenopathy. Results - Laboratory Findings CBC and BMP: 02/07/20 05:27 02/07/20 05:27 PT/INR, D-dimer PT 9.6 sec (9.0-12.0) 02/06/20 17:19 INR 0.9 (<1.2) 02/06/20 17:19 D-Dimer 0.54 mg/L FEU (<0.60) 02/06/20 17:19 Abnormal lab findings: Abnormal Labs 02/06/20 02/06/20 02/06/20 17:19 17:19 19:35 RBC Hgb Hct MCV Lymphocytes # Eosinophils # 1.2 H VBG pH 7.30 L VBG pCO2 62 H VBG HCO3 29 H Chloride BUN 23 H Glucose POC Glucose (mg/dL) Ferritin 16.7 L 02/06/20 02/07/20 02/07/20 23:03 05:27 05:27 RBC 3.76 L Hgb 12.5 L Hct 38.0 L MCV 101.2 H Lymphocytes # 0.4 L Eosinophils # VBG pH VBG pCO2 VBG HCO3 Chloride 108 H BUN 24 H Glucose 170 H POC Glucose (mg/dL) 168 H Ferritin 02/07/20 06:59 RBC Hgb Hct MCV Lymphocytes # Eosinophils # VBG pH VBG pCO2 VBG HCO3 Chloride BUN Glucose POC Glucose (mg/dL) 161 H Ferritin - Diagnostic Findings Chest x-ray: image reviewed (As noted in HPI.) CT scan - chest: image reviewed (Mild central bronchiectasis and nonspecific abnormality in the left upper lobe.) Additional studies: High-resolution CT of the chest showed mild central bronchiectasis and it also showed a 1.1 cm groundglass area of consolidation likely postinflammatory in nature, but will need to have outpatient follow-up. And repeat CT of the chest in 4 months. Assessment and Plan Assessment: Impression: Acute exacerbation of bronchial asthma, mild intermittent. Mild central bronchiectasis as noted on high-resolution CT of the chest 1.1 cm area of consolidation and groundglass opacity in the left upper lobe, likely postinflammatory in nature, and will need a repeat CT of the chest in 4 months. Seasonal ALLERGIC rhinitis. Recommendation: Continue present treatment plan including bronchodilators, IV Solu-Medrol, add Symbicort, antibiotics, Repeat CT of the chest in 4 months. Patient will likely benefit from outpatient follow-up regarding his bronch iectasis and will recommend immunoglobulin profile. Patient also have a pulmonary ALLERGY panel done on outpatient basis. Patient could be transferred out of the ICU to a regular medical floor, Consider discharge planning in the next 24 hours and follow-up on outpatient basis. Time with Patient: Greater than 30
[2020-02-07 12:47] LABS: Glucose,Whole Blood 165 mg/dL (75-99)
--- NOTE | 2020-02-07 15:47 | P.DS ---
Providers Date of admission: 02/06/20 21:09 Expected date of discharge: 02/07/20 Attending physician: Jayjay Mata MD Consults: 02/06/20 21:07 Consult Physician Routine Consulting Provider: Alva Milian Consult Reason/Comments: known Do you want consulting provider notified?: Yes Primary care physician: [facility] Course: The patient is a 74-year-old male with no known PMH who presented to the ED with complaints of gradually worsening shortness of breath and cough over the past 3 months. The patient notes that he had been attempting to get an appointment w harley Milian though had not been able to due to Covid. He notes that his breathing has gradually deteriorated over the past few months, and his exercise tolerance has been significantly reduced. He reports a cough productive of yellow to white phlegm. 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 He otherwise denied chest discomfort, nausea, vomiting, diaphoresis, or dizziness. He also denied abdominal pain, diarrhea, fever, or chills. He underwent an extensive evaluation in the emergency room with CBC unremarkable, VBG showing pH 7.30 and pCO2 62. Remaining laboratory evaluation revealed a BNP of 302, pro calcitonin 0.08, BUN 23, creatinine 0.87, and glucose 168. EKG revealed sinus rhythm with APCs at 73 bpm with chest and neck x-ray unremarkable. Patient was a admitted for acute COPD exacerbation. He was given DuoNeb scheduled and as needed for shortness of breath and wheezing. He was given Solu-Medrol. He was given Symbicort. His shortness of breath progressively improved throughout his admission. Pulmonology was consulted and recommended CT chest. CT chest showed central bronchiectasis with pulmonary nodule. Patient was seen and examined. No acute events overnight. Patient reports complete resolution of his symptoms. He denies any chest pain, shortness of breath or palpitations. No nausea or vomiting. No fever or chills. Requesting to go home. General: [non toxic], [no distress], [appears at stated age] Derm: [warm], [dry] Head: [atraumatic], [normocephalic], [symmetric] Eyes: [EOMI], [no lid lag], [anicteric sclera] Mouth: [no lip lesion], [mucus membranes moist] Cardiovascular: [S1S2 reg], [no murmur], [positive DP pulse bilateral], Lungs: [CTA bilateral with mild central end expiratory wheezing], [no rhonchi, no rales] , [no accessory muscle use] Abdominal: [soft], [ nontender to palpation], [no guarding], [no appreciable organomegaly] Ext: [no gross muscle atrophy], [no edema], [no contractures] Neuro: [no focal neuro deficits] Psych: [Alert], [oriented], [appropriate affect] Acute exacerbation of bronchiectasis Pulmonary nodule Prerenal azotemia Patient's breathing is back to baseline. He is on room air. He is hemodynamically stable. We will discharge patient home with albuterol, Symbicort and Medrol Dosepak. Patient is advised to follow-up with his PCP within 3 days of discharge. Patient advised to follow-up with pulmonology within 1 week of discharge. He will need repeat CT chest in 6 months to evaluate and compare his pulmonary nodule. He does have an elevated BUN of 24, creatinine within normal limits, likely prerenal and encouraged hydration by mouth. Patient verbalized understanding of the plan. This complex discharge took about 45 minutes to complete. Pertinent Studies: Chest x-ray, neck x-ray, CT chest Patient Condition at Discharge: Stable Plan - Discharge Summary Discharge Rx Participant: Yes New Discharge Prescriptions: New methylPREDNISolone Dose Pack [Medrol Dose Pack] 4 mg PO DIRECTED #21 package Budesonide-Formot 160-4.5 Mcg [Symbicort 160-4.5 Mcg Inhaler] 2 puff INHALATION RT-BID #1 inhaler Albuterol Inhaler [Ventolin Hfa Inhaler] 1 puff INHALATION RT-TID PRN #1 inhaler PRN Reason: Shortness Of Breath Continue Multivit-Min/FA/Lycopen/Lutein [Centrum Silver Tablet] 1 each PO DAILY Ubidecarenone [Co Q-10] 100 mg PO DAILY Discontinued Acetaminophen [Tylenol] 650 mg PO Q6H PRN PRN Reason: Pain Discharge Medication List Multivit-Min/FA/Lycopen/Lutein [Centrum Silver Tablet] 1 each PO DAILY 07/01/19 [History] Ubidecarenone [Co Q-10] 100 mg PO DAILY 02/06/20 [History] Albuterol Inhaler [Ventolin Hfa Inhaler] 1 puff INHALATION RT-TID PRN #1 inhaler 02/07/20 [Rx] Budesonide-Formot 160-4.5 Mcg [Symbicort 160-4.5 Mcg Inhaler] 2 puff INHALATION RT-BID #1 inhaler 02/07/20 [Rx] methylPREDNISolone Dose Pack [Medrol Dose Pack] 4 mg PO DIRECTED #21 package 02/07/20 [Rx] Follow up Appointment(s)/Referral(s): Mireya Srivastava MD [Primary Care Provider] - 1-2 days Alva Milian MD [STAFF PHYSICIAN] - 1 Week Activity/Diet/Wound Care/Special Instructions: Diet: Regular FU PCP within 3 days of DC. FU Pulmonology within 1 week of DC. Take all medications as advised. Come back to ED or call 911 for worsening SOB, CP, palpitations, dizziness.
[2020-02-07 16:01] VITALS: BP 132/84; PULSE 90; RESP 20; TEMP 97.8
[2020-02-07] MEDS ORDERED: SYMBICORT 160-4.5 MCG INHALER INHALATION SCH (20:00)
== END 2020-02-07 18:21 | disposition home or self-care (01) | DRG 191 ==
LOC: EC 16:12 → 3SCARD 21:09 → 2SICU 22:05
PROVIDERS: ADMIT Internal Medicine; ATTEND Internal Medicine
DX: J47.1 Bronchiectasis with (acute) exacerbation (principal); J45.21 Mild intermittent asthma with (acute) exacerbation; F41.9 Anxiety disorder, unspecified; R09.02 Hypoxemia; Z90.49 Acquired absence of other specified parts of digestive tract; Z66 Do not resuscitate; Z57.5 Occupational exposure to toxic agents in other industries; R91.1 Solitary pulmonary nodule; Z80.0 Family history of malignant neoplasm of digestive organs
CPT/HCPCS: 36415; 70360; 71045; 71250; 80048; 80053; 82375; 82728; 82803; 83605; 83615; 83735; 83880; 84145; 85025; 85379; 85610; 85730; 86140; 87040; 93005; 94640; 94660; 96365; 96375; 96376; 99291

== ENCOUNTER → 2020-02-28 | Outpatient (CLI) | payer MEDICARE ==
[2020-02-29 11:35] LABS: Immunoglobulin M 52.7 mg/dL (40.0-280.0)
== END | disposition home or self-care (01) ==
LOC: LABWHC1 11:58
PROVIDERS: ATTEND Internal Medicine Critical Care Medicine
DX: R05 Cough (principal)
CPT/HCPCS: 36415; 82784; 82785

== ENCOUNTER 2020-03-01 10:47 | Inpatient (IN) | payer MEDICARE ==
[2020-02-29 10:15] VITALS: BMI 23.6
[~2020-03-01 10:47] MED LIST changes: +ALBUTEROL NEB (CONC) 2.5 MG/0.5 ML INHALATION ONE; -DEXAMETHASONE SOD PHOSPHATE 10 MG/ML 1 ML VIAL IV ONE; -HEPARIN SODIUM,PORCINE 5,000 UNIT/ML 1 ML VIAL SQ ONE; -LACTATED RINGERS 1,000 ML IV SCH; +LIDOCAINE 1% (10MG/ML) FOR IV START INTRADERMA PRN; -LIDOCAINE 1% 20 ML VIAL (10MG/ML) FOR IV START INTRADERMA PRN; +LIDOCAINE 2% (PF) 20 MG/ML 5 ML VIAL INHALATION ONE; +LIDOCAINE VISCOUS 300 MG/15 ML CUP MUCOUS MEM ONE; -ONDANSETRON 4 MG/2 ML VIAL IVP ONE
[2020-03-01] MEDS: LACTATED RINGERS 1,000 ML IV SCH (11:30)
[2020-03-01] MEDS ORDERED: LIDOCAINE 1% INJ 10MG/ML (20 ML MDV) ONE (12:15)
[2020-03-01] MEDS ORDERED: PROPOFOL 10 MG/ML 20 ML VIAL IV ONE (12:15)
[2020-03-01] MEDS ORDERED: fentaNYL (PF) 50 MCG/ML 2 ML AMP ONE (12:15)
[2020-03-01] MEDS ORDERED: GLYCOPYRROLATE 0.2 MG/ML 2 ML VIAL ONE (12:15)
[2020-03-01] MEDS ORDERED: MIDAZOLAM 2 MG/2 ML VIAL ONE (12:15)
[2020-03-01] MEDS ORDERED: KETAMINE 10 MG/ML 20 ML VIAL ONE (12:15)
--- NOTE | 2020-03-01 12:40 | P.PCN ---
Date of Procedure: 03/01/20 Preoperative Diagnosis: Persistent cough, chronic Postoperative Diagnosis: 1 severe tracheobronchomalacia 2 severe tracheobronchitis 3 extensive plugging Procedure(s) Performed: Flexible bronchoscopy, therapeutic airway suctioning, bronchial lavage Anesthesia: MAC Surgeon: Alva Milian Estimated Blood Loss (ml): 0 Pathology: none sent Condition: stable Disposition: same day Operative Findings: Visit flexible bronchoscope that was done as part of evaluation for a persistent cough and shortness of breath and chest tightness and wheeze. The patient has failed prior treatments. Airways inspection and therapeutic airway suctioning was done. This procedure was done in the endoscopy suite. A timeout was obtained. The patient was given a combination of Versed, fentanyl, ketamine and propofol for sedation. After achieving adequate sedation, the flexible bronchoscope was introduced through the right nostril was advanced in the upper airway. Examination of posterior pharynx and the larynx was done. The pharyngeal structures were within normal limits. They rate was within normal limits. Epiglottis was in the midline and this was sharp. The arytenoids and the vocal cords were then visualized and they're all within normal limits. There was full mobility and there was no evidence of any lesions or nodules or tumors identified in the upper airway. At that point, the patient had a coughing spell where he was unable to stop had a brief desaturation. Bronchoscope was removed. Oxygen was checked and the patient's multiple gradually dropping down to the mid 80s. He subsequently improved and the procedure was completed. The bronchoscope was then removed and the subglottic trachea. A total of 1% lidocaine was applied to the vocal cords and following that the flexible bronchoscope was moved to the upper subglottic trachea and an airway inspection was done. The patient had an extensive tracheal bronchomalacia with significant compression and occlusion of the airways with exhalation and coughing maneuvers. The membranous trachea was causing dynamic obstruction of the trachea with exhalation and cough and. A consent and the patient had copious amount of purulent greenish mucous plugs throughout the airway. Underlying bronchial mucosa and the tracheal mucosa was slightly. There was also evidence of bronchomalacia throughout the patient's airways. The visualized airways into the right upper lobe bronchus, bronchus intermedius, right middle lobe bronchus and right lower lobe bronchus. At the same time examination of the left study. The left mainstem bronchus left upper lobe bronchus and left lower lobe bronchus. Airways were inspected. There was evidence of tracheal bronchitis. bronchial wall inflammation was noted. Therapeutic airway suctioning was done. Copious amount of purulent discharge or secretions were suctioned out. The patient did encounter some oxygen desaturation and he had to be Ambu bag for a few times. He ultimately had the procedure. Therapeutic airway suctioning was done. The bronchioloalveolar lava ge of the right lower lobe was done with a total of 60 mL of fluid was infused and 25 mL of purulent material was suctioned back. Coughing ultimately subsided. Oxygenation was restored. Bronchoscope was removed and the patient was transferred recovery in stable condition. Microbial cultures will be obtained from the lavage.. We'll continue to follow.
[2020-03-01] MEDS ORDERED: PROMETHAZINE HCL 6.25 MG/5 ML CUP PO PRN (12:50)
[2020-03-01] MEDS ORDERED: HYDROcodone/APAP 5-325MG 1 EACH TAB PO PRN (13:22)
[2020-03-01] MEDS ORDERED: NALOXONE 0.4 MG/ML 1 ML VIAL IV PRN (13:22)
[2020-03-01] MEDS ORDERED: ACETAMINOPHEN TAB 325 MG TAB PO PRN (13:22)
[2020-03-01] MEDS ORDERED: ONDANSETRON 4 MG/2 ML VIAL IVP PRN (13:22)
[2020-03-01] MEDS ORDERED: IPRATROPIUM-ALBUTEROL 3 ML NEB INHALATION PRN (13:25)
[2020-03-01] MEDS ORDERED: methylPREDNISolone SOD SUCCI 125 MG/2 ML VIAL IV STA (13:25)
[2020-03-01] MEDS ORDERED: guaiFENesin-Coden 100-10MG/5ML 10 ML CUP PO PRN (13:25)
[2020-03-01] MEDS ORDERED: VANCOMYCIN IV PER PHARMACY 1 EACH MISC MISCELLANE PRN (13:29)
--- NOTE | 2020-03-01 13:50 | XR ---
EXAMINATION TYPE: XR chest 1V portable DATE OF EXAM: 03/01/2020 COMPARISON: Prior chest x-ray 02/07/2020 HISTORY: Hypoxia status post bronchoscopy TECHNIQUE: frontal view of the chest is obtained on 2 images. FINDINGS: There is no pneumothorax or pleural effusion. Aorta is dense. Cardiac mediastinal silhouet te, pulmonary vascularity and harvey are stable. No evident airspace disease. Bones are unchanged. Ther e is a spinal curvature. IMPRESSION: No acute process.
[2020-03-01] MEDS ORDERED: VANCOMYCIN 1,000 MG in SODIUM CHLORIDE 0.9% 250 ML IVPB ONE (14:00)
[2020-03-01] MEDS: SODIUM CHLORIDE 0.9% 1,000 ML IV SCH (14:07)
[2020-03-01] MEDS: IPRATROPIUM-ALBUTEROL 3 ML NEB INHALATION SCH ×2 (15:43→19:24)
--- NOTE | 2020-03-01 16:00 | P.HPIM ---
History of Present Illness H&P Date: 03/01/20 Chief Complaint: Shortness of breath 74-year-old male with no significant past medical history except previous 10 hernia repair appendectomy, recent diagnosis of bronchiectasis presents to [facility] for bronchoscopy under Dr. Milian. Patient is admitted post procedure for shortness of breath, tracheomalacia, cough with copious sputum production and acute hypoxic respiratory failure. Patient was recently admitted from February 05 to February 06 for shortness of breath. He was treated with Solu-Medrol, DuoNeb and BiPAP as needed. CT chest was done at that time which showed mild central bronchiectasis, 1.1 cm groundglass area of consolidation left upper lobe, left upper lobe granuloma. He was discharged in stable condition at that time with outpatient follow-up with pulmonology. Of note, his son was diagnosed and from cystic fibrosis at an early age. Patient reports progressive shortness of breath that has been getting worse along with cough productive of yellow and green sputum for the past 6 months. He is a nonsmoker. He has never been diagnosed with asthma or COPD. He does report working in a [employer] for 40 years. He denies any headache, lower extremity edema, nausea or vomiting, fever or chills, chest pain, palpitat ions, changes in urination or bowel habits. No changes in appetite or weight. Denies any dizziness, numbness/weakness/tingling of the extremities. Post bronchoscopy, he required 8 L on mask to maintain O2 saturation at 94%. His vital signs were otherwise stable. Case was discussed with Dr. Milian, found to have tracheomalacia with airway collapse and copious amount sputum during bronchoscopy. Patient to be admitted for IV steroids, bronchodilators, IV antibiotics and pulmonology consult. Review of Systems Pertinent positives and negatives as discussed in HPI, a complete review of systems was performed and all other systems are negative. Past Medical History Past Medical History: No Reported History Additional Past Medical History / Comment(s): inguinal hernia. ADMITTED WITH BRONCHITIS AND RESP FAILURE 02/06/20 History of Any Multi-Drug Resistant Organisms: None Reported Past Surgical History: Appendectomy Additional Past Surgical History / Comment(s): appendectomy at 14 yrs old. Past Anesthesia/Blood Transfusion Reactions: No Reported Reaction, Motion Sickness Additional Past Anesthesia/Blood Transfusion Reaction / Comment(s): . Smoking Status: Never smoker - Past Family History Mother Family Medical History: Cancer Additional Family Medical History / Comment(s): COLON CANCER Medications and Allergies Home Medications Medication Instructions Recorded Confirmed Type Multivit-Min/FA/Lycopen/Lutein 1 each PO DAILY 07/01/19 02/29/20 History [Centrum Silver Tablet] Ubidecarenone [Co Q-10] 100 mg PO DAILY 02/06/20 02/29/20 History Albuterol Inhaler [Ventolin Hfa 1 puff INHALATION RT-TID PRN #1 02/07/20 02/29/20 Rx Inhaler] inhaler Albuterol Nebulized [Ventolin 1.25 mg INHALATION BID 02/29/20 02/29/20 History Nebulized] Fluticasone/Salmeterol [Airduo 1 puff INHALATION BID 02/29/20 02/29/20 History Respiclick 232-14 Mcg] Allergies Allergy/AdvReac Type Severity Reaction Status Date / Time No Known Allergies Allergy Verified 03/01/20 11:06 Physical Exam Vitals: Vital Signs Temp Pulse Resp BP Pulse Ox 03/01/20 15:29 97.6 F 79 20 137/90 96 03/01/20 14:40 82 18 125/75 95 03/01/20 14:12 82 18 131/80 96 03/01/20 13:44 87 18 142/84 95 03/01/20 13:25 85 18 138/78 94 L 03/01/20 13:10 80 22 116/73 94 L 03/01/20 12:59 91 22 135/88 94 L 03/01/20 12:44 101 H 18 114/72 95 03/01/20 11:25 97.7 F 80 16 146/86 97 Intake and Output 03/01/20 03/01/20 03/01/20 06:59 14:59 22:59 Intake Total 700 Balance 700 Intake: IV 700 Other: Weight 72.2 kg General: [non toxic], [no distress], [appears at stated age] Derm: [warm], [dry] Head: [atraumatic], [normocephalic], [symmetric] Eyes: [EOMI], [no lid lag], [anicteric sclera] Mouth: [no lip lesion], [mucus membranes moist] Cardiovascular: [S1S2 reg], [no murmur], [positive DP pulse bilateral], Lungs: [Decreased breath sounds bilateral], [no rhonchi, no rales] , [no accessory muscle use] Abdominal: [soft], [ nontender to palpation], [no guarding], [no appreciable organomegaly] Ext: [no gross muscle atrophy], [no edema], [no contractures] Neuro: [ CN II-XI grossly intact], [no focal neuro deficits] Psych: [Alert], [oriented], [appropriate affect] Assessment and Plan Assessment: Acute hypoxic respiratory failure due to tracheomalacia and exacerbation of bronchiectasis Pulmonary nodule Patient will be started on DuoNeb scheduled and as needed for shortness of breath and wheezing. He'll be started on Pulmicort and Perforomist. He'll be given Robitussin-AC as needed for cough. He'll be started on Solu-Medrol 60 mg IV every 6 hours. He'll be started on vancomycin and cefepime for treatment of possible pneumonia. Patient will be placed on telemetry monitoring. He will be given supplemental O2 per NC to maintain O2 saturation greater than 92%. Pulmonology will be consulted. CBC and CMP will be ordered. Sputum culture along with bronchial wash culture is ordered. TB culture and Aspergillus IgE pending. DVT prophylaxis: [SCD boots] Discussed with: [Patient and ] Anticipated discharge: [2-3 days] Anticipated discharge place: [Home] A total of [45] minutes was spent on the care of this complex patient more than 50% of the time was spent in counseling and care coordination. Patient names his Megan decision-maker if he can make decisions for himself. Patient would like to be no code except agreeable for intubation if necessary.
[2020-03-01] MEDS: CEFEPIME 1 GM in SODIUM CHLORIDE 0.9% 50 ML IVPB SCH (17:57)
[2020-03-01] MEDS: methylPREDNISolone SOD SUCCI 125 MG/2 ML VIAL IV SCH (17:57)
[2020-03-01] MEDS: BUDESONIDE 0.5 MG/2 ML NEBU INHALATION SCH (19:24)
[2020-03-01] MEDS: FORMOTEROL FUMARATE 20 MCG/2 ML NEBU INHALATION SCH (19:24)
[2020-03-01 20:43] LABS: Glucose,Whole Blood 222 mg/dL (75-99)
[2020-03-01 21:38] LABS: Basophils % (A) 0 %; Eosinophils # (A) 0.1 k/uL (0-0.7); Eosinophils % (A) 1 %; HGB 13.3 gm/dL (13.0-17.5); Lymphocytes # (A) 0.3 k/uL (1.0-4.8); Lymphocytes % (A) 3 %; MCH 33.2 pg (25.0-35.0); MCHC 33.2 g/dL (31.0-37.0); MCV 99.7 fL (80.0-100.0); Mean Platelet Volume 6.5; Monocytes # (A) 0.1 k/uL (0-1.0); Monocytes % (A) 1 %; Neutrophils % (A) 95 %; Platelet Count 361 k/uL (150-450); RBC 4.01 m/uL (4.30-5.90); WBC 9.5 k/uL (3.8-10.6)
[2020-03-01 21:49] LABS: ALT 17 U/L (4-49); AST 27 U/L (17-59); African American GFR (CKD) >90 (>60 ml/min/1.73 sqM); Albumin 3.5 g/dL (3.5-5.0); Alkaline Phosphatase 90 U/L (38-126); Anion Gap 7 mmol/L; Blood Urea Nitrogen 20 mg/dL (9-20); Calcium 9.4 mg/dL (8.4-10.2); Carbon Dioxide 24 mmol/L (22-30); Chloride 104 mmol/L (98-107); Glucose 256 mg/dL (74-99); Non-African American GFR(CKD) 80 (>60 ml/min/1.73 sqM); Sodium 135 mmol/L (137-145); Total Bilirubin 0.4 mg/dL (0.2-1.3); Total Protein 6.9 g/dL (6.3-8.2)
[2020-03-02] MEDS: methylPREDNISolone SOD SUCCI 125 MG/2 ML VIAL IV SCH ×3 (00:17→12:18)
[2020-03-02] MEDS: CEFEPIME 1 GM in SODIUM CHLORIDE 0.9% 50 ML IVPB SCH ×2 (00:18→09:38)
[2020-03-02] MEDS: LACTATED RINGERS 1,000 ML IV SCH (02:29)
[2020-03-02] MEDS: VANCOMYCIN 1,250 MG in SODIUM CHLORIDE 0.9% 250 ML IVPB SCH ×2 (02:32→14:34)
[2020-03-02 03:55] VITALS: RESP 18
[2020-03-02] MEDS: SODIUM CHLORIDE 0.9% 1,000 ML IV SCH (06:14)
[2020-03-02 06:16] LABS: Glucose,Whole Blood 184 mg/dL (75-99)
[2020-03-02 06:57] LABS: Basophils % (A) 0 %; Eosinophils # (A) 0.1 k/uL (0-0.7); Eosinophils % (A) 1 %; HCT 38.8 % (39.0-53.0); Lymphocytes # (A) 0.6 k/uL (1.0-4.8); Lymphocytes % (A) 5 %; MCH 30.9 pg (25.0-35.0); MCV 99.7 fL (80.0-100.0); Mean Platelet Volume 6.5; Monocytes # (A) 0.2 k/uL (0-1.0); Monocytes % (A) 1 %; Neutrophils # (A) 10.4 k/uL (1.3-7.7); Neutrophils % (A) 93 %; Platelet Count 314 k/uL (150-450); RBC 3.89 m/uL (4.30-5.90); RDW 12.9 % (11.5-15.5); WBC 11.2 k/uL (3.8-10.6)
[2020-03-02 07:04] LABS: ALT 16 U/L (4-49); AST 23 U/L (17-59); African American GFR (CKD) >90 (>60 ml/min/1.73 sqM); Albumin 3.2 g/dL (3.5-5.0); Alkaline Phosphatase 75 U/L (38-126); Anion Gap 5 mmol/L; Blood Urea Nitrogen 22 mg/dL (9-20); Calcium 9.3 mg/dL (8.4-10.2); Carbon Dioxide 25 mmol/L (22-30); Chloride 107 mmol/L (98-107); Glucose 161 mg/dL (74-99); Magnesium 1.8 mg/dL (1.6-2.3); Non-African American GFR(CKD) 88 (>60 ml/min/1.73 sqM); Potassium 4.6 mmol/L (3.5-5.1); Sodium 137 mmol/L (137-145); Total Bilirubin 0.4 mg/dL (0.2-1.3); Total Protein 6.6 g/dL (6.3-8.2)
[2020-03-02] MEDS: FORMOTEROL FUMARATE 20 MCG/2 ML NEBU INHALATION SCH (08:02)
[2020-03-02] MEDS: IPRATROPIUM-ALBUTEROL 3 ML NEB INHALATION SCH ×3 (08:02→15:50)
[2020-03-02] MEDS: BUDESONIDE 0.5 MG/2 ML NEBU INHALATION SCH (08:02)
[2020-03-02 11:29] LABS: Glucose,Whole Blood 158 mg/dL (75-99)
--- NOTE | 2020-03-02 12:16 | P.CNPUL ---
History of Present Illness Consult date: 03/02/20 Requesting physician: Anderson Edmond Reason for consult: cough, other (Bronchiectasis and tracheal bronchomalacia) Chief complaint: Shortness of breath and cough. History of present illness: This is a 74-year-old white male with history of tracheobronchomalacia, bronchiectasis, patient was recently evaluated by Dr. Milian in the office, and he was complaining of persistent cough, cough was described as productive, and his recent CT of the chest clearly showed evidence of bronchiectasis. Patient underwent bronchoscopy and bronchoalveolar lavage. However postoperatively the patient had significant symptoms of cough, shortness of breath, he Desaturating, hence the patient was admitted overnight. According to Dr. Milian, the patient was found to have copious amount of secretions in the airways, and these were suctioned and lavaged. He was also found to have severe tracheomalacia. Overnight the patient was placed on antibiotics, bronchodilators, and steroids. However few hours after he was admitted, the patient was feeling much better. I saw him this morning, and the patient seems to be doing great, has no cough no wheezing no shortness of breath, and is asking to be discharged home. Chest x-ray is reassuring. Review of Systems Constitutional: Negative HEENT: Negative Pulmonary: As noted in HPI. Cardiac: Negative Gu: Negative GI: Negative Hematologic: Negative Endocrine: Negative Musculoskeletal: Negative Skin: Negative Endocrine: Negative Psychiatric: Past Medical History Past Medical History: No Reported History Additional Past Medical History / Comment(s): ADMITTED WITH BRONCHITIS AND RESP FAILURE 02/06/20 History of Any Multi-Drug Resistant Organisms: None Reported Past Surgical History: Appendectomy Additional Past Surgical History / Comment(s): appendectomy at 14 yrs old. Right side inguinal hernia surgery in July 2019. Past Anesthesia/Blood Transfusion Reactions: No Reported Reaction, Motion Sickness Additional Past Anesthesia/Blood Transfusion Reaction / Comment(s): . Past Psychological History: No Psychological Hx Reported Smoking Status: Never smoker Past Alcohol Use History: None Reported Past Drug Use History: None Reported - Past Family History Mother Family Medical History: Cancer Additional Family Medical History / Comment(s): COLON CANCER Medications and Allergies Home Medications Medication Instructions Recorded Confirmed Type Multivit-Min/FA/Lycopen/Lutein 1 each PO DAILY 07/01/19 02/29/20 History [Centrum Silver Tablet] Ubidecarenone [Co Q-10] 100 mg PO DAILY 02/06/20 02/29/20 History Albuterol Inhaler [Ventolin Hfa 1 puff INHALATION RT-TID PRN #1 02/07/20 Rx Inhaler] inhaler Albuterol Nebulized [Ventolin 1.25 mg INHALATION BID 02/29/20 02/29/20 History Nebulized] Fluticasone/Salmeterol [Airduo 1 puff INHALATION BID 02/29/20 02/29/20 History Respiclick 232-14 Mcg] Allergies Allergy/AdvReac Type Severity Reaction Status Date / Time No Known Allergies Allergy Verified 03/01/20 11:06 Physical Exam Vitals: Vital Signs Temp Pulse Pulse Resp BP Pulse Ox 03/02/20 12:01 80 03/02/20 11:50 78 03/02/20 09:36 97.8 F 82 18 116/76 94 L 03/02/20 08:30 84 03/02/20 08:20 83 03/02/20 08:02 84 95 03/02/20 03:51 98.4 F 82 18 138/71 94 L 03/02/20 00:00 98.2 F 85 20 117/58 95 03/01/20 20:00 98.4 F 81 20 122/65 97 03/01/20 19:54 80 03/01/20 19:35 82 03/01/20 19:24 78 03/01/20 16:01 80 03/01/20 15:44 78 95 03/01/20 15:29 97.6 F 79 20 137/90 96 03/01/20 15:15 79 20 03/01/20 14:40 82 18 125/75 95 03/01/20 14:12 82 18 131/80 96 03/01/20 13:44 87 18 142/84 95 03/01/20 13:25 85 18 138/78 94 L 03/01/20 13:10 80 22 116/73 94 L 03/01/20 12:59 91 22 135/88 94 L 03/01/20 12:44 101 H 18 114/72 95 Intake and Output 03/01/20 03/02/20 03/02/20 22:59 06:59 14:59 Intake Total 560 360 Balance 560 360 Intake: Oral 560 360 Other: Voiding Method Toilet Toilet Toilet # Voids 2 2 Weight 72.2 kg 73 kg Physical Exam: Revealed a 74-year-old white female in no distress. Head: Atraumatic, normocephalic. HEENT:[Neck is supple.] [No neck masses.] [No thyromegaly.] [No JVD.] Chest: [Clear throughout, no crackles, no rhonchi, no wheezes.] Cardiac Exam: [Normal S1 and S2, no S3 gallop, no murmur.] Abdomen: [Soft, nontender, no megaly, no rebound, no guarding, normal bowel sounds.] Extremities: [No clubbing, no edema, no cyanosis.] Neurological Exam: [No focal neurologic deficit.] Psychiatric: Normal mood affect and normal mental status examination. Skin: No rashes. No erythema. Results - Laboratory Findings CBC and BMP: 03/02/20 06:34 03/02/20 06:34 Abnormal lab findings: Abnormal Labs 03/01/20 03/01/20 03/01/20 20:41 21:29 21:29 WBC RBC 4.01 L Hgb Hct Neutrophils # 9.0 H Lymphocytes # 0.3 L Sodium 135 L BUN Glucose 256 H POC Glucose (mg/dL) 222 H Albumin 03/02/20 03/02/20 03/02/20 06:14 06:34 06:34 WBC 11.2 H RBC 3.89 L Hgb 12.0 L Hct 38.8 L Neutrophils # 10.4 H Lymphocytes # 0.6 L Sodium BUN 22 H Glucose 161 H POC Glucose (mg/dL) 184 H Albumin 3.2 L 03/02/20 11:26 WBC RBC Hgb Hct Neutrophils # Lymphocytes # Sodium BUN Glucose POC Glucose (mg/dL) 158 H Albumin - Diagnostic Findings Chest x-ray: image reviewed (Fairly unremarkable chest x-ray.) Assessment and Plan Assessment: Impression: Acute hypoxic respiratory failure secondary to tracheobronchomalacia, and acute exacerbation of bronchiectasis History of bronchiectasis and tracheal bronchomalacia and chronic cough. Status post bronchoscopy and bronchoalveolar lavage, performed by Dr. Milian. Recommendation: Consider discharging the patient home today on antibiotics, would suggest Levaquin, course of prednisone 30 mg tapered over 21 days, bronchodilators that he is presently on home, and the patient to follow-up with Dr. Milian next week. Discussed his condition with the admitting physician, and we both agree on discharging the patient home today. Time with Patient: Greater than 30
[2020-03-02] MEDS: INSULIN ASPART (NovoLOG) 100 UNIT/ML VIAL SQ SCH ×3 (12:17→17:05)
--- NOTE | 2020-03-02 14:02 | P.DS ---
Providers Date of admission: 03/01/20 12:47 Expected date of discharge: 03/02/20 Attending physician: Anderson Edmond MD Consults: 03/01/20 13:09 Consult Physician Urgent Consulting Provider: Anderson Edmond Consult Reason/Comments: admission Do you want consulting provider notified?: Already Contacted 03/01/20 13:33 Consult Physician Stat Consulting Provider: Ana Maria White Consult Reason/Comments: respiraotry failure, bronchiectasis Do you want consulting provider notified?: Yes Primary care physician: [facility] Course: 74-year-old male with no significant past medical history except previous 10 hernia repair appendectomy, recent diagnosis of bronchiectasis presents to [facility] for bronchoscopy under Dr. Milian. Patient is a dmitted post procedure for shortness of breath, tracheomalacia, cough with copious sputum production and acute hypoxic respiratory failure. Patient was recently admitted from February 05 to February 06 for shortness of breath. He was treated with Solu-Medrol, DuoNeb and BiPAP as needed. CT chest was done at that time which showed mild central bronchiectasis, 1.1 cm groundglass area of consolidation left upper lobe, left upper lobe granuloma. He was discharged in stable condition at that time with outpatient follow-up with pulmonology. Of note, his son was diagnosed and from cystic fibrosis at an early age. Patient reports progressive shortness of breath that has been getting worse along with cough productive of yellow and green sputum for the past 6 months. He is a nonsmoker. He has never been diagnosed with asthma or COPD. He does report working in a [employer] for 40 years. He denies any headache, lower extremity edema, nausea or vomiting, fever or chills, chest pain, palpitations, changes in urination or bowel habits. No changes in appetite or weight. Denies any dizziness, numbness/weakness/tingling of the extremities. Post bronchoscopy, he required 8 L on mask to maintain O2 saturation at 94%. His vital signs were otherwise stable. Case was discussed with Dr. Milian, found to have tracheomalacia with airway collapse and copious amount sputum during bronchoscopy. Patient to be admitted for IV steroids, bronchodilators, IV antibiotics and pulmonology consult. Patient was started on DuoNeb scheduled and as needed for shortness of breath and wheezing. Patient was started on Pulmicort and Perforomist. Patient was given Robitussin-AC as needed for cough. Patient was started on Solu-Medrol 60 mg IV every 6 hours. Patient was started on vancomycin and cefepime for treatment of possible pneumonia. Patient was be placed on telemetry monitoring. He was be given supplemental O2 per NC to maintain O2 saturation greater than 92%. Pulmonology was consulted. Sputum culture, bronchial wash culture, sputum for TB and Aspergillus IgE was pending at the time of discharge. Patient was seen and examined. No acute events overnight. Patient reports significant improvement in his symptoms since yesterday. Cough is mild. He denies any chest pain, shortness breath or palpitations. No nausea or vomiting. No fever or chills. Saturating high 90s on room air. is at bedside. General: [non toxic], [no distress], [appears at stated age] Derm: [warm], [dry] Head: [atraumatic], [normocephalic], [symmetric] Eyes: [EOMI], [no lid lag], [anicteric sclera] Mouth: [no lip lesion], [mucus membranes moist] Cardiovascular: [S1S2 reg], [no murmur], [positive DP pulse bilateral], Lungs: [Decreased breath sounds bilateral], [no rhonchi, no rales] , [no accessory muscle use] Abdominal: [soft], [ nontender to palpation], [no guarding], [no appreciable organomegaly] Ext: [no gross muscle atrophy], [no edema], [no contractures] Neuro: [no focal neuro deficits] Psych: [Alert], [oriented], [appropriate affect] Acute hypoxic respiratory failure due to tracheomalacia and exacerbation of bronchiectasis Leukocytosis likely related to steroid use Pulmonary nodule Patient symptoms have significantly improved since admission. He is currently on room air. He'll be discharged home with a long tapering dose of prednisone and levofloxacin for 5 more days. Case was discussed with pulmonology and they have cleared the patient for discharge. Patient will follow-up with Dr. Milian in one week. Sputum culture, bronchial wash culture, TB and Aspergillus IgE will be followed up by pulmonology in the clinic. Patient and verbalized understanding of the plan. This complex discharge took about 30 from his to complete. Pertinent Studies: Chest x-ray Patient Condition at Discharge: Stable Plan - Discharge Summary Discharge Rx Participant: Yes New Discharge Prescriptions: New Levofloxacin [Levaquin] 500 mg PO DAILY 5 Days #5 tab predniSONE See Taper PO DIRECTED #42 tab Continue Multivit-Min/FA/Lycopen/Lutein [Centrum Silver Tablet] 1 each PO DAILY Ubidecarenone [Co Q-10] 100 mg PO DAILY Albuterol Inhaler [Ventolin Hfa Inhaler] 1 puff INHALATION RT-TID PRN #1 inhaler PRN Reason: Shortness Of Breath Fluticasone/Salmeterol [Airduo Respiclick 232-14 Mcg] 1 puff INHALATION BID Albuterol Nebulized [Ventolin Nebulized] 1.25 mg INHALATION BID Discharge Medication List Multivit-Min/FA/Lycopen/Lutein [Centrum Silver Tablet] 1 each PO DAILY 07/01/19 [History] Ubidecarenone [Co Q-10] 100 mg PO DAILY 02/06/20 [History] Albuterol Inhaler [Ventolin Hfa Inhaler] 1 puff INHALATION RT-TID PRN #1 inhaler 02/07/20 [Rx] Albuterol Nebulized [Ventolin Nebulized] 1.25 mg INHALATION BID 02/29/20 [History] Fluticasone/Salmeterol [Airduo Respiclick 232-14 Mcg] 1 puff INHALATION BID 02/29/20 [History] Levofloxacin [Levaquin] 500 mg PO DAILY 5 Days #5 tab 03/02/20 [Rx] predniSONE See Taper PO DIRECTED #42 tab 03/02/20 [Rx] Activity/Diet/Wound Care/Special Instructions: Diet: Regular Follow-up with PCP within 3 days of discharge. Follow-up with Dr. Milian within 1 week of discharge. Take all medications as advised. Come back to the ED or call 911 for worsening shortness of breath, chest pain, palpitations or dizziness. Discharge Disposition: HOME SELF-CARE
[2020-03-02 16:32] VITALS: BP 116/79; PULSE 91; TEMP 97.7
[2020-03-02 16:43] LABS: Glucose,Whole Blood 138 mg/dL (75-99)
[2020-03-03] MEDS ORDERED: VANCOMYCIN TROUGH DUE 1 EACH MISC MISCELLANE ONE (13:00)
== END 2020-03-02 17:25 | disposition home or self-care (01) | DRG 190 ==
LOC: ORWHC2ENDO 10:47 → 3SCARD 12:47 → ORWHC2ENDO 13:22
PROVIDERS: ADMIT Family Medicine; ATTEND Family Medicine
PROC: 0B9L8ZZ Drainage of Left Lung, Via Natural or Artificial Opening Endoscopic (ICD-10-PCS; 2020-03-01)
PROC: 0B9F8ZX Drainage of Right Lower Lung Lobe, Via Natural or Artificial Opening Endoscopic, Diagnostic (ICD-10-PCS; principal; 2020-03-01 12:00)
DX: J47.1 Bronchiectasis with (acute) exacerbation (principal); J96.01 Acute respiratory failure with hypoxia; T17.890A Other foreign object in other parts of respiratory tract causing asphyxiation, initial encounter; J98.19 Other pulmonary collapse; J39.8 Other specified diseases of upper respiratory tract; J47.0 Bronchiectasis with acute lower respiratory infection; J98.09 Other diseases of bronchus, not elsewhere classified; R91.1 Solitary pulmonary nodule; D72.829 Elevated white blood cell count, unspecified; T38.0X5A Adverse effect of glucocorticoids and synthetic analogues, initial encounter; Z79.899 Other long term (current) drug therapy; Z90.49 Acquired absence of other specified parts of digestive tract; Z98.890 Other specified postprocedural states; Z83.6 Family history of other diseases of the respiratory system; Z80.0 Family history of malignant neoplasm of digestive organs
CPT/HCPCS: 31624; 36415; 71045; 80053; 82784; 82785; 83735; 85025; 86003; 87070; 87102; 87116; 87205; 87206; 87252; 87496; 87498; 87502; 87529; 87634; 87798; 88108; 88305; 94640

== ENCOUNTER 2020-11-01 11:20 | Day surgery (SDC) | payer MEDICARE ==
[2020-10-30 09:28] VITALS: BMI 25.8
[~2020-11-01 11:20] MED LIST changes: +SODIUM CHLORIDE 0.9% 1,000 ML IV SCH
[2020-11-01] MEDS: LACTATED RINGERS 1,000 ML IV SCH ×2 (11:36→11:45)
[2020-11-01 12:03] VITALS: RESP 16
[2020-11-01 12:05] LABS: Glucose,Whole Blood 83 mg/dL (75-99)
[2020-11-01] MEDS ORDERED: SUCCINYLCHOLINE CHLORIDE 100 MG/5 ML SYR IV ONE (12:09)
[2020-11-01] MEDS ORDERED: fentaNYL (PF) 50 MCG/ML 2 ML AMP ONE (12:09)
[2020-11-01] MEDS ORDERED: PROPOFOL 10 MG/ML 20 ML VIAL IV ONE (12:09)
[2020-11-01] MEDS ORDERED: LIDOCAINE 1% INJ 10MG/ML (20 ML MDV) ONE (12:09)
--- NOTE | 2020-11-01 12:40 | P.PCN ---
Date of Procedure: 11/01/20 Preoperative Diagnosis: Dyspnea, mucus plugging, tracheobronchomalacia Postoperative Diagnosis: Dyspnea, mucus plugging, tracheobronchomalacia Procedure(s) Performed: Flexible bronchoscopy, therapeutic airway suctioning Anesthesia: ALICIA Surgeon: Alva Milian Stunner And Shackler #1: Sumi Helm Estimated Blood Loss (ml): 0 Pathology: other Condition: stable Disposition: floor Operative Findings: This procedure was done under general anesthesia. The patient was intubated and placed on a mechanical ventilator and the intubation process was done by the Department of anesthesia under the care of BUTTON ATTACHING MACHINE OPERATOR. The patient was intubated by a #8 orotracheal tube. After achieving adequate sedation, the flexible bronchoscope was introduced through the orotracheal tube into breath the lower airway. The distal trachea was within normal limits. There was some rest or secretions that were creamy white sitting at the annmarie and in the bilateral mainstem bronchi. Therapeutic airway suctioning was done. Airway inspection was done as the airway was being clear pulmonary secretions. The visualized airways including the right mainstem bronchus, right upper lobe bronchus, right middle lobe bronchus and right lower lobe bronchus and the different 10 segments of the right lung were visualized. Segmental bronchial washing was done using saline with the secretions were irrigated with saline and there were suctioned out. Examination of the left sciatic fluid left mainstem bronchus and the a different segments of the left lung were segmental washing was done and therapeutic it was suctioning was performed. Total amount of aspirate was in the order of 20 mL and the bronchial aspirate was sent for microbial cultures and analysis. The procedure was completed and they bronchoscope was removed and the patient was let the anesthesia to extubate the patient. After extubation, the flexible bronchoscope was introduced through the right nostril and upper airway examination was done. There were loose liquidy rest or secretions in the posterior nasopharynx and oropharynx and these were suctioned out. Epiglottis was within normal limits. Vallecula arytenoids the vocal cords were then visualized and they were all within normal limits. Therapeutic airway suctioning was done and the bronchoscope was then advanced past the vocal cords to visualize the upper trachea in the middle trachea. Some further research secretions were noticed and encountered and there were again suctioned out. There was obvious tracheal bronchomalacia noted throughout the airway with dynamic collapse severity of the airway with exhalation and cough and. After completing the therapeutic airway suctioning, the bronchoscope was removed. The patient accordingly was stable and the patient was transferred recovery in stable condition.
[2020-11-01 12:43] VITALS: TEMP 97
[2020-11-01] MEDS ORDERED: LACTATED RINGERS 1,000 ML IV ONE (13:00)
[2020-11-01 13:58] VITALS: BP 144/87; PULSE 55
[2020-11-01 16:08] LABS: Appearance,BF Hazy; Nucleated Cells, Body Fluid 370 /uL; RBC, Body Fluid 50 /uL
[2020-11-01 16:12] LABS: Mononuclear WBC,Body Fluid 70 %; Polynuclear WBC,Body Fluid 30 %; Total Cells Counted,Body Fluid 100
== END 2020-11-01 14:15 | disposition home or self-care (01) ==
LOC: ORWHC2ENDO 11:20
PROVIDERS: ATTEND Internal Medicine Critical Care Medicine
DX: J39.8 Other specified diseases of upper respiratory tract (principal); J98.09 Other diseases of bronchus, not elsewhere classified; Z90.89 Acquired absence of other organs; J45.909 Unspecified asthma, uncomplicated; F41.9 Anxiety disorder, unspecified; Z98.890 Other specified postprocedural states; Z79.52 Long term (current) use of systemic steroids; Z79.899 Other long term (current) drug therapy
CPT/HCPCS: 87798 ×3; 87496; 87498; 87529; 88108; 88305; 89050; 87252; 87502; 87634; 87070; 87205; 87116; 87102; 87206; 31622; J2001; J3010; J0330; J2704; 31624

== ENCOUNTER → 2021-03-06 | Outpatient (CLI) | payer MEDICARE ==
--- NOTE | 2021-03-07 09:16 | CT ---
EXAMINATION TYPE: CT chest wo con DATE OF EXAM: 03/06/2021 COMPARISON: 02/07/2020 HISTORY: 75-year-old male J47.9, uncomplicated bronchiectasis TECHNIQUE: Contiguous axial scanning of the chest without IV contrast. Coronal and sagittal reconstru ctions performed. CT DLP: 264.30 mGycm Automated exposure control for dose reduction was used. FINDINGS: Heart normal size without pericardial effusion. LAD and mild RCA coronary artery calcifications are p resent. Borderline ectasia ascending aorta 3.6 cm. Conventional arch was a branching anatomy. Borderline ecta tic upper descending thoracic aorta 3.1 cm. Calcified left hilar lymph nodes compatible with prior granulomatous disease. Prominent but not enlar ged a millimeter lower right paratracheal lymph node. No thoracic lymphadenopathy by CT size criteria . Calcified granuloma superior segment left lower lobe. Stable 4 mm subpleural pulmonary nodule periphe ral left lower lobe. The previous groundglass opacity posterior left upper lobe has resolved in the i nterval. There is some strandy areas of atelectasis in the inferior lingula. Some groundglass changes at the posterior lung bases have slightly increased along with reticulations. Similar mild bronchiol ectasis of the basilar lower lobes. No new consolidation or pleural effusion. Moderate stool in the visualized upper abdomen. Bones: Advanced degenerative change of the right shoulder. Moderate degenerative disc disease mid to lower thoracic spine with slight accentuated mid thoracic kyphosis. IMPRESSION: 1. REDEMONSTRATED BASILAR LOWER LOBE BRONCHIOLECTASIS. SOME RETICULAR AND GROUNDGLASS CHANGES at the lung bases have increased. This may in part reflect dependent atelectasis. Follow-up to exclude progr essive lung disease such as postinflammatory scarring or interstitial pneumonitis. 2. Evidence of prior granulomatous disease. The previous posterior left upper lobe ground glass infil trate has resolved.
== END | disposition home or self-care (01) ==
LOC: RADCTMAIN 18:17
PROVIDERS: ATTEND Internal Medicine Critical Care Medicine
DX: J47.9 Bronchiectasis, uncomplicated (principal)
CPT/HCPCS: 71250

== ENCOUNTER → 2021-12-17 | Outpatient (CLI) | payer MEDICARE ==
[2021-12-17 15:10] LABS: Basophils # (A) 0.07 X 10*3/uL (0.00-0.10); Basophils % (A) 0.8 %; Eosinophils # (A) 0.54 X 10*3/uL (0.04-0.35); Eosinophils % (A) 6.5 %; HCT 43.9 % (39.6-50.0); HGB 13.9 g/dL (13.0-17.0); Immature Grans, Automated 0.2 %; Lymphocytes # (A) 1.47 X 10*3/uL (0.90-5.00); Lymphocytes % (A) 17.6 %; MCH 31.9 pg (27.0-32.0); MCHC 31.7 g/dL (32.0-37.0); MCV 100.7 fL (80.0-97.0); Monocytes # (A) 0.73 X 10*3/uL (0.20-1.00); Monocytes % (A) 8.7 %; NRBC Per 100 WBC 0 /100 WBCS (0.0-0.0); Neutrophils # (A) 5.54 X 10*3/uL (1.80-7.70); Neutrophils % (A) 66.2 %; Platelet Count 290 X 10*3/uL (140-440); RBC 4.36 X 10*6/uL (4.40-5.60); RDW 12.8 % (11.5-14.5); WBC 8.37 X 10*3/uL (4.50-10.00)
[2021-12-17 17:14] LABS: ALT 27 U/L (10-49); AST 27 U/L (14-35); African American GFR (CKD) 83.8 (60.0-200.0); Albumin 4.1 g/dL (3.8-4.9); Albumin/Globulin Ratio 1.46 (1.60-3.17); Alkaline Phosphatase 89 U/L (41-126); Blood Urea Nitrogen 18.6 mg/dL (9.0-27.0); Calcium 9.3 mg/dL (8.7-10.3); Carbon Dioxide 24.3 mmol/L (20.0-27.5); Chloride 104 mmol/L (96-109); Chol/HDL Ratio 2.74 Ratio; Globulin 2.8 g/dL (1.6-3.3); Glucose 89 mg/dL (70-110); LDL Cholesterol,Calculated 147.2 mg/dL (0.0-131.0); Non-African American GFR(CKD) 72.3 (60.0-200.0); Potassium 4.7 mmol/L (3.5-5.5); Sodium 139 mmol/L (135-145); Total Protein 6.9 g/dL (6.2-8.2); VLDL Calculation 10.24 mg/dL (5.00-40.00)
[2021-12-17 23:27] LABS: Appearance,Urine Clear (Clear); Bacteria,Urine None Seen /HPF (None Seen); Bilirubin,Urine Negative (Negative); Blood,Urine Negative (Negative); Color,Urine Yellow (Yellow); Ketones,Urine Negative (Negative); Nitrite,Urine Negative (Negative)
== END | disposition home or self-care (01) ==
LOC: LABWHC1 09:03
PROVIDERS: ATTEND Family Medicine
DX: Z00.00 Encounter for general adult medical examination without abnormal findings (principal); J39.8 Other specified diseases of upper respiratory tract; K62.3 Rectal prolapse
CPT/HCPCS: 36415; 80053; 80061; 81001; 85025

== ENCOUNTER → 2023-07-17 | Outpatient (CLI) | payer MEDICARE ==
--- NOTE | 2023-07-19 05:37 | MR ---
EXAMINATION TYPE: MR knee LT wo con DATE OF EXAM: 07/17/2023 COMPARISON: NONE HISTORY: Pain left knee x5 months. Unilateral primary osteoarthritis. TECHNIQUE: Multiplanar, multisequence images of the knee is performed without IV contrast. FINDINGS: MEDIAL MENISCUS: Medial bulging medial meniscus with increased signal coronal image 23 cm posterior h orn, does not definitively extend to articular surface. LATERAL MENISCUS: Triangular-shaped increased signal central body extends into posterior horn without definitive extension to articular surface. CRUCIATE LIGAMENTS: The anterior and posterior cruciate ligaments are intact and unremarkable. COLLATERAL LIGAMENTS: The medial collateral ligament and lateral collateral ligament complex are inta ct. Medial bulging medial meniscus with surrounding fluid. EXTENSOR MECHANISM: Visualized quadriceps and patellar tendons are intact. EFFUSION: Moderate to large size suprapatellar joint effusion. POPLITEAL CYST: Moderate-sized leaking popliteal/ulloa cyst. TRICOMPARTMENT SPACES: Tricompartment joint space loss and spurring with findings most prominent cavanaugh llofemoral and medial tibiofemoral compartments. CARTILAGE: Chondromalacia patella with cartilaginous loss along the posterior patellar pole. Signific ant cartilaginous loss medial tibiofemoral compartment with areas of full-thickness loss appreciated. BONE MARROW SIGNAL: Medial tibiofemoral compartment has diminished T1 and increased T2 signal greates t involving the distal medial femoral condyle OTHER: No additional significant abnormality is apprec iated. IMPRESSION: 1. Tricompartment degenerative changes as detailed above which are moderate to advanced in appearance involving patellofemoral and medial tibiofemoral compartments. 2. Moderate to large-sized suprapatellar joint effusion. 3. Moderate-sized leaking popliteal cyst. 4. At least intrasubstance tear posterior horn of lateral meniscus extending into the central body. 5. At least an intrasubstance tear posterior horn of medial meniscus. 6. MCL sprain injury.
== END | disposition home or self-care (01) ==
LOC: RADMRIMAIN 17:49
PROVIDERS: ATTEND Orthopaedic Surgery
DX: M17.12 Unilateral primary osteoarthritis, left knee (principal); M11.262 Other chondrocalcinosis, left knee; M23.8X2 Other internal derangements of left knee; M23.352 Other meniscus derangements, posterior horn of lateral meniscus, left knee; S83.412A Sprain of medial collateral ligament of left knee, initial encounter

== ENCOUNTER → 2023-08-07 | Outpatient (CLI) | payer MEDICARE ==
[2023-08-07 13:39] LABS: INR 0.9 (<1.2); Partial Thromboplastin Time 23.4 sec (22.0-30.0); Prothrombin Time 10.2 sec (10.0-12.5)
[2023-08-07 18:21] LABS: HCT 39.6 % (39.6-50.0); MCH 33.2 pg (27.0-32.0); MCHC 32.8 g/dL (32.0-37.0); Mean Platelet Volume 9.1 FL (9.5-12.2); NRBC Per 100 WBC 0 X 10*3/uL (0.00-0.01); Platelet Count 315 X 10*3/uL (140-440); RBC 3.92 X 10*6/uL (4.40-5.60); RDW 13.1 % (11.5-14.5)
[2023-08-07 18:37] LABS: ALT 24 U/L (10-49); AST 24 U/L (14-35); Albumin 3.8 g/dL (3.8-4.9); Albumin/Globulin Ratio 1.31 Ratio (1.60-3.17); Alkaline Phosphatase 94 U/L (41-126); BUN/Creat Ratio 28.89 Ratio (12.00-20.00); Calcium 9.3 mg/dL (8.7-10.3); Carbon Dioxide 26.5 mmol/L (21.6-31.8); Chloride 104 mmol/L (96-109); Globulin 2.9 g/dL (1.6-3.3); Glucose 81 mg/dL (70-110); Potassium 4.8 mmol/L (3.5-5.5); Sodium 139 mmol/L (135-145); Total Bilirubin 0.4 mg/dL (0.3-1.2); Total Protein 6.7 g/dL (6.2-8.2)
== END | disposition home or self-care (01) ==
LOC: LABPAT 11:33
PROVIDERS: ATTEND Orthopaedic Surgery
DX: Z01.812 Encounter for preprocedural laboratory examination (principal); Z22.322 Carrier or suspected carrier of Methicillin resistant Staphylococcus aureus; M17.12 Unilateral primary osteoarthritis, left knee; E11.9 Type 2 diabetes mellitus without complications; I49.8 Other specified cardiac arrhythmias
CPT/HCPCS: 80053; 83036; 85027; 85610; 85730; 87070; 93005

== ENCOUNTER → 2023-08-07 | Outpatient (CLI) | payer MEDICARE ==
--- NOTE | 2023-08-07 19:57 | CT ---
EXAMINATION TYPE: CT left knee - [facility] Protocol DATE OF EXAM: 08/07/2023 COMPARISON: None HISTORY: 77-year-old male M17.12, presurgical planning TECHNIQUE: CT of the pelvis, left knee, and both ankles for surgical planning purposes. No IV contras t. Coronal and sagittal reconstructions performed. CT DLP: 712 mGycm Automated exposure control for dose reduction was used. FINDINGS: There is moderate degenerative change of the left hip and [id number] at the right hip. Degenera tive bony ankylosis of the right SI joint. Prostate gland enlargement 4.6 cm wide. There is a moderate to large knee joint effusion mild chronic synovitis. Small Beckett's cyst is noted. Tricompartmental degenerative change. Moderate to severe compartment joint space narrowing and mild t o moderate in the patellofemoral compartment. Some ossific densities below the medial malleolus suggests sequela of prior injuries. Similarly, gage icated density anterior aspect of the left lateral malleolus probably reflecting previous ligamentous injury. IMPRESSION: 1. TRICOMPARTMENTAL OSTEOARTHROSIS LEFT KNEE, MODERATE TO SEVERE IN THE MEDIAL COMPARTMENT. MODERATE TO LARGE JOINT EFFUSION WITH MILD CHRONIC SYNOVITIS. SMALL BECKETT'S CYST. 2. MODERATE LEFT AND [id number] RIGHT HIP OA. DEGENERATIVE BONY ANKYLOSIS RIGHT SI JOINT. 3. IMAGING FOR SURGICAL PLANNING PURPOSES.
== END | disposition home or self-care (01) ==
LOC: RADCTMAIN 10:42
PROVIDERS: ATTEND Orthopaedic Surgery
DX: Z01.818 Encounter for other preprocedural examination (principal); M17.12 Unilateral primary osteoarthritis, left knee; M25.462 Effusion, left knee; M16.11 Unilateral primary osteoarthritis, right hip; M65.9 Synovitis and tenosynovitis, unspecified

== ENCOUNTER → 2023-09-01 | Outpatient (CLI) | payer OTHER ==
--- NOTE | 2023-09-04 13:33 | CT ---
EXAMINATION TYPE: CT left knee - [facility] Protocol DATE OF EXAM: 09/01/2023 12:40 PM INDICATION: Patient age:Male; 77 years old; Reason for study: [facility] Protocol for hip/knee replacement, M17.12 UNILATERAL PRIMARY OSTEOARTHRITIS, L EFT KNE; PHH. COMPARISON: MR left knee 07/17/2023 TECHNIQUE: Thin section axial CT imaging of the left lower extremity was performed per [facility] protocol, without th e administration of IV contrast. FINDINGS: There is no evidence of acute fracture or dislocation. No destructive bony lesion. The hips show mild to moderate bilateral osteoarthritic changes.. Left knee shows moderate tricompartmental osteoarthropathy and a moderate sized joint effusion. Joint space narrowing is greatest in the medial compartment, followed by patellofemoral compartment. Mild chondrocalcinosis in the medial and lateral compartments can be seen with CPPD The ankles are grossly unremarkable. The visualized soft tissues demonstrate prostatomegaly with transverse diameter 5.1 cm. Moderate diff use arterial calcifications. IMPRESSION: 1. [facility] protocol for joint replacement.
== END | disposition home or self-care (01) ==
LOC: RADCTMAIN 10:54
PROVIDERS: ATTEND Orthopaedic Surgery
DX: M17.12 Unilateral primary osteoarthritis, left knee (principal); M71.22 Synovial cyst of popliteal space [Baker], left knee; M25.462 Effusion, left knee

== ENCOUNTER 2023-09-02 12:56 | Day surgery (SDC) | payer MEDICARE ==
[~2023-09-02 12:56] MED LIST changes: +ACETAMINOPHEN TAB 500 MG TAB PO PRN; -ALBUTEROL NEB (CONC) 2.5 MG/0.5 ML INHALATION ONE; +DEXAMETHASONE SOD PHOSPHATE 10 MG/ML 1 ML VIAL IV PRN; +DOCUSATE 100 MG CAP PO PRN; +FAMOTIDINE 20 MG/2 ML VIAL IVP PRN; +HYDROmorphone 0.5 MG/0.5 ML SYRINGE IVP PRN; +KETOROLAC 15 MG/ML 1 ML VIAL IVP PRN; -LIDOCAINE 1% (10MG/ML) FOR IV START INTRADERMA PRN; -LIDOCAINE 2% (PF) 20 MG/ML 5 ML VIAL INHALATION ONE; -LIDOCAINE VISCOUS 300 MG/15 ML CUP MUCOUS MEM ONE; +ONDANSETRON 4 MG/2 ML VIAL IVP PRN; -SODIUM CHLORIDE 0.9% 1,000 ML IV SCH; +TRANEXAMIC 1,000 MG/100ML-NACL 1,000 MG in SALINE 1 100ML.BAG IV PRN; +TRANEXAMIC 1,000 MG/100ML-NACL 1,000 MG in SALINE 1 100ML.BAG IVPB PRN; +oxyCODONE ER 10 MG TAB.ER.12H PO PRN
[2023-09-02] MEDS: LACTATED RINGERS 1,000 ML IV SCH (13:31)
[2023-09-02] MEDS ORDERED: ONDANSETRON 4 MG/2 ML VIAL IVP ONE (13:35)
[2023-09-02] MEDS ORDERED: MIDAZOLAM 2 MG/2 ML VIAL IVP ONE (13:48)
[2023-09-02] MEDS: ROPIVACAINE/EPI/CLONIDINE/KET 50 ML SYRINGE MISCELLANE PRN ×2 (16:02→17:05)
[2023-09-02] MEDS ORDERED: hydrOXYzine pamoate 25 MG CAP PO PRN (17:46)
[2023-09-02] MEDS ORDERED: diazePAM 5 MG TAB PO PRN (17:46)
[2023-09-02] MEDS ORDERED: bisacodyL 10 MG SUPP RECTAL PRN (17:46)
[2023-09-02] MEDS ORDERED: HYDROcodone/APAP 10-325MG 1 EACH TAB PO PRN (17:46)
[2023-09-02] MEDS ORDERED: NALOXONE 0.4 MG/ML 1 ML VIAL IV PRN (17:46)
[2023-09-02] MEDS ORDERED: HYDROmorphone 0.5 MG/0.5 ML SYRINGE IVP PRN (17:46)
[2023-09-02] MEDS ORDERED: MAGNESIUM HYDROXIDE 2,400 MG/30 ML CUP PO PRN (17:46)
[2023-09-02] MEDS ORDERED: ONDANSETRON 4 MG/2 ML VIAL IVP PRN (17:46)
--- NOTE | 2023-09-02 17:46 | P.OP ---
Date of Procedure: 09/02/23 Preoperative Diagnosis: Severe left knee osteoarthritis Postoperative Diagnosis: Same Procedure(s) Performed: 1. Left total knee arthroplasty 2. Computer assisted musculoskeletal navigation using CT/MRI images Implants: 1. [employer] CR Femur Size #5 2. [place] [employer] [place] Tibial Base Size #4 3. [place] [employer] CS poly Size #10 4. [employer] all poly patella, Size #32 Anesthesia: regional, spinal Surgeon: Otoniel Mo Estimated Blood Loss (ml): 100 IV fluids (ml): 1,000 Pathology: none sent Condition: stable Disposition: PACU Indications for Procedure: I met with the patient preoperatively in the office setting and discussed treatment of their symptomatic knee arthritis. The patient had x-rays which showed moderate arthritis but due to his continued pain and MRI was obtained which showed diffuse arthritic changes. The patient had transient improvement with intra-articular corticosteroid injection. Having failed nonsurgical treatment the patient requested proceeding with surgery. Due to the patient's age and diffuse arthritis on his MRI I recommended a knee replacement. They failed a long course of nonsurgical treatment and elected to proceed with an elective total knee replacement. I discussed the potential risks and complications at length and gave them ample time to ask questions. Risks discussed included: risks from anesthesia, superficial site surgical infection, acute and/or chronic periprosthetic joint infection, delayed wound healing, drainage, wound necrosis, instability, stiffness, stiffness requiring manipulation and/or revision surgery, damage to local blood vessels or nerves, aseptic loosening of the implants, extensor mechanism issues including disruption, patellar maltracking, avascular necrosis etc., continued or worsened knee pain, generalized dissatisfaction with surgical outcome, need for revision surgery, an inability to regain preinjury level of function, DVT, PE, other medical complications, and possibly loss of life or limb. The patient voiced their understanding that while these are the most common complications other less common complications are possible. They provided both their verbal and written consent to go forward with surgery. Operative Findings: Diffuse arthritic changes throughout the knee most pronounced in the medial and patellofemoral compartment. Description of Procedure: The patient was identified in preoperative holding and the correct operative extremity was verified and marked with a marker. I reviewed the consent form with the patient at length. All of their questions were answered. The patient was given a block by anesthesia. They were then brought back to the operating room. They were transferred onto the operating room table where a general anesthetic, preoperative antibiotics, and tranexamic acid were administered by anesthesia. A tourniquet was applied to the proximal aspect of the operative extremity. The contralateral extremity was padded under the heel and secured to the operating room table with a nonsterile blue towel and tape. The ipsilateral arm was carefully draped across the patient's chest and secured with a pillow and foam. A post was applied over the lateral aspect of the ipsilateral thigh and a bolster was placed under the ipsilateral foot. I verified that the operative extremity was stable and the knee was flexed to 90. The operative extremity was then placed in a leg avalos, nonsterile drapes were applied, and the extremity was prepped and draped sterilely in the standard sterile fashion. Prior to starting surgery timeout was performed identifying the correct patient, operative extremity, and procedure. The leg was then elevated, exsanguinated with an Esmarch bandage, and the tourniquet was inflated. An anterior midline incision was made sharply with a scalpel. Once I had dissected deep to the superficial fascial layer medial and lateral flaps were elevated. A medial parapatellar arthrotomy was created. Upon opening the knee joint there were diffuse arthritic changes in all 3 compartments. The anterior horn of the medial meniscus were sharply released and a medial release was pe rformed around the posterior medial corner of the knee to facilitate retractor placement. The fat pad was excised with electrocautery. The patella was found to be severely arthritic and a provisional cut was made with a sagittal saw to facilitate mobilization of the extensor mechanism during the procedure. Remnants of the ACL and PCL were then excised from the notch. 4 mm pins were then placed within the incision in the medial distal femur and proximal tibia. Arrays were applied to the pins and I verified they were completely tightened. The knee was then registered with the Yoogaia robot and manipulations in implant position were made to balance the knee and opitmize implant position. Using the Yoogaia robotic saw all cuts were made in accordance with our plan. After all bony fragments had been removed the cuts were verified with the planar probe. The tibia was then subluxed forward and sized. The knee was brought into flexion and a lamina labor relations officer was placed to allow removal of the meniscal remnants both medially and laterally as well as posterior osteophytes. Local anesthetic was then infiltrated around the joint capsule. Trial implants were then placed within the knee. Range of motion and collateral ligament tension was then evaluated. Adjustments in implant size and position were then made accordingly. Once the knee was felt to be appropriately balanced the Santos pins were removed. The patella was then recut, sized, and punched. A trial patellar button was then placed. With the trial components in place, the patella tracked midline. The femur was then drilled and the trial component removed. The trial tibial component was then appropriately rotated, pinned, and prepared for the keel. All trial components were then removed from the knee. The knee was thoroughly irrigated with pulsatile lavage. Cement was prepared via vacuum mixing in a bowl on the back table. I then hand pressurized cement into the femur and tibia and placed the implants beginning with the tibial base tray and poly liner, femoral component, and finally the patellar button. All extruded cement was removed including from the pin sites. Once the cement had hardened the knee was evaluated one final time with the final polyethylene liner in place. The knee had full extension and flexion and felt stable to varus and valgus stress throughout the arc of motion. The tourniquet was released and with the tourniquet down the patella tracked midline. All bleeders were controlled with electrocautery. The knee was then soaked for 3 minutes with a dilute Betadine soak. The knee was thoroughly irrigated using 3 L of sterile saline and pulsatile lavage. The extensor mechanism was then reapproximated using pop off Vicryl sutures followed by a running barbed suture. The knee was then closed in layers with a 0 strata fix for the deep fascial layer, 2-0 strata fix for the superficial subcutaneous layer and Monocryl and Steri-Strips for the skin. A sterile dressing was applied. I verified that all instrument, sponge, and sharp counts were correct. The patient was then transferred off the operating room table, extubated, and brought to recovery having tolerated the procedure well. PLAN: The patient can weight-bear as tolerated on the operative extremity. DVT prophylaxis with aspirin 81 mg twice a day based on preoperative risk stratification. Follow-up in the office in 2 weeks for wound check and x-rays of the knee including an AP and lateral.
--- NOTE | 2023-09-02 18:17 | XR ---
EXAMINATION TYPE: XR knee limited LT DATE OF EXAM: 09/02/2023 6:09 PM CLINICAL INDICATION:Male, 77 years old with history of Evaluation for Postop abnormality and alignmen t; [facility] COMPARISON: None. TECHNIQUE: The Left knee(s) was examined in frontal and lateral projections. FINDINGS: Total knee arthroplasty is identified. Hardware is intact. No evidence of malalignment is a ppreciated of the hardware components. No significant patella eloise or baja. Gas can be seen within th e suprapatellar joint, likely postsurgical in nature. Mild soft tissue edema seen anterior to the kne e. No fractures are identified. IMPRESSION: Post total knee arthroplasty without evidence of acute process.
[2023-09-02] MEDS ORDERED: SENNOSIDES-DOCUSATE SODIUM 1 EACH TAB PO SCH (21:00)
[2023-09-02] MEDS: SODIUM CHLORIDE 0.9% 1,000 ML IV SCH (21:24)
[2023-09-02] MEDS: ASPIRIN 81 MG PO SCH (21:29)
[2023-09-02] MEDS ORDERED: TEMAZEPAM 15 MG CAP PO PRN (22:00)
--- NOTE | 2023-09-02 22:11 | P.CONS ---
History of Present Illness - Reason for Consult Consult date: 09/02/23 - History of Present Illness Patient is a 77-year-old male with a PMH of COPD and knee osteoarthritis who was admitted for an elective left knee arthroplasty. The patient underwent the procedure earlier today and was seen postoperatively on the surgical unit. He reported excellent control with pain, 0 out of 10 at the time of interview. Denies any additional complaints. He reports not having gotten out of bed as of yet. He also has not passed urine or flatness. Denies experiencing chest discomfort, shortness of breath, sore throat, fever, chills, cough, nausea, vomiting, abdominal pain, diarrhea. ED documentation reviewed and case discussed with ED provider. Review of systems: Pertinent positives and negatives as discussed in HPI, a complete review of systems was performed and all other systems are negative. Physical examination: Vital signs reviewed General: non toxic, no distress, appears at stated age, normal weight Derm: no unusual rashes/lesions, warm Head: atraumatic, normocephalic, symmetric Eyes: EOMI, no lid lag, anicteric sclera, pupils equal round reactive to light ENT: Nose and ears atraumatic Neck: No cervical lymphadenopathy, trachea midline, supple Mouth: no lip lesion, mucus membranes moist Cardiovascular: S1S2 reg, no murmur, positive dorsalis pedis pulse bilateral, no edema Lungs: CTA bilateral, no rhonchi, no rales, no accessory muscle use Abdominal: soft, nontender to palpation, no guarding Ext: muscle strength 5 out of 5 in all 4 extremities except left lower extremity postsurgically, left knee dressing in place clean and dry, no gross muscle atrophy, no contractures, Neuro: CN II-XI grossly intact, no gross focal neuro deficits Psych: Alert, oriented, appropriate affect Assessment: Status post left total knee replacement Chronic conditions: COPD Plan: Continue with home formoterol inhaler Defer management of postsurgical care including DVT prophylaxis and pain control per the primary surgery service We appreciate this opportunity to be involved in this patient's care. We will follow the patient with you. For any further questions, please not hesitate to contact the [facility] inpatient team. Past Medical History Past Medical History: No Reported History, Respiratory Disorder Additional Past Medical History / Comment(s): TRACHEAL BRONCHOMALACIA, HX RESP FAILURE. History of Any Multi-Drug Resistant Organisms: None Reported Past Surgical History: Appendectomy, Hernia Repair Additional Past Surgical History / Comment(s): appendectomy at 14 yrs old., Right inguinal hernia. Past Anesthesia/Blood Transfusion Reactions: No Reported Reaction, Motion Sickness Additional Past Anesthesia/Blood Transfusion Reaction / Comm: . Past Psychological History: Anxiety Additional Psychological History / Comment(s): SOME ANXIETY WITH SOB. Smoking Status: Never smoker Past Alcohol Use History: None Reported Past Drug Use History: None Reported - Past Family History Mother Family Medical History: Cancer Additional Family Medical History / Comment(s): COLON CANCER Medications and Allergies Home Medications Medication Instructions Recorded Confirmed Type Multivit-Min/FA/Lycopen/Lutein 1 each PO DAILY 07/01/19 09/02/23 History [Centrum Silver Tablet] Ubidecarenone [Co Q-10] 100 mg PO DAILY 02/06/20 09/02/23 History Acetaminophen [Tylenol Extra 500 mg PO DIRECTED PRN 10/30/20 09/02/23 History Strength] Celecoxib [CeleBREX] 200 mg PO BID 08/26/23 09/02/23 History Formoterol Fumarate 1 dose INHALATION BID 08/26/23 09/02/23 History Pulmicort Respulse(Unk) 1 neb INHALATION BID 08/26/23 09/02/23 History Allergies Allergy/AdvReac Type Severity Reaction Status Date / Time No Known Allergies Allergy Verified 09/02/23 13:07 Physical Exam Vitals: Vital Signs Temp Pulse Pulse Resp BP Pulse Ox 09/02/23 19:50 97.8 F 81 17 151/79 99 09/02/23 18:08 85 16 136/76 100 09/02/23 17:53 85 16 119/67 100 09/02/23 17:38 97.5 F L 93 16 116/68 98 09/02/23 14:04 82 16 143/90 100 09/02/23 13:18 98.0 F 82 14 165/98 100 Intake and Output 09/02/23 09/02/23 09/02/23 06:59 14:59 22:59 Intake Total 900 Output Total 100 Balance 800 Intake: IV 900 Output: Estimated Blood Loss 100 Other: Weight 75.1 kg 75.1 kg
[2023-09-03] MEDS: FORMOTEROL FUMARATE 20 MCG/2 ML NEBU INHALATION SCH ×2 (00:14→08:33)
[2023-09-03] MEDS: HYDROcodone/APAP 5-325MG 1 EACH TAB PO PRN ×2 (03:48→10:46)
[2023-09-03] MEDS: SODIUM CHLORIDE 0.9% 1,000 ML IV SCH (05:35)
[2023-09-03] MEDS: LACTATED RINGERS 1,000 ML IV SCH (05:36)
[2023-09-03 07:25] VITALS: BP 126/79; RESP 18; TEMP 98
[2023-09-03] MEDS: ASPIRIN 81 MG PO SCH (07:40)
--- NOTE | 2023-09-03 07:44 | P.DS ---
Providers Date of admission: 09/02/2023 Attending physician: Otoniel Mo Consults: 09/02/23 17:46 Consult Physician Routine Consulting Provider: Chayito Tamez Consult Reason/Comments: post op medical management Do you want consulting provider notified?: Yes Primary care physician: Freddy Edwards MD Hospital Course: Very pleasant 69-year-old male who is admitted under my care yesterday and underwent uncomplicated left total knee replacement. Surgery is transferred to the orthopedic floor in stable condition. He received 2 doses of postoperative antibiotics. He was seen by internal medicine for perioperative medical management. He worked with physical therapy. I saw him on postoperative day #1 and he was doing well. His dressing was intact. Motor sensory function were in tact. He did well and was ultimately cleared for discharge home. Plan - Discharge Summary Discharge Rx Participant: No New Discharge Prescriptions: New HYDROcodone/APAP 5-325MG [Thornton 5-325] 1 - 2 tab PO Q6HR PRN #32 tab PRN Reason: Pain Aspirin 81 mg PO BID #60 tab Omeprazole 40 mg PO DAILY #30 cap Celecoxib [CeleBREX] 200 mg PO BID #60 cap Docusate [Colace] 100 mg PO BID #28 capsule No Action Multivit-Min/FA/Lycopen/Lutein [Centrum Silver Tablet] 1 each PO DAILY Ubidecarenone [Co Q-10] 100 mg PO DAILY Acetaminophen [Tylenol Extra Strength] 500 mg PO DIRECTED PRN PRN Reason: Pain Celecoxib [CeleBREX] 200 mg PO BID Formoterol Fumarate 1 dose INHALATION BID Pulmicort Respulse(Unk) 1 neb INHALATION BID Discharge Medication List Multivit-Min/FA/Lycopen/Lutein [Centrum Silver Tablet] 1 each PO DAILY 07/01/19 [History] Ubidecarenone [Co Q-10] 100 mg PO DAILY 02/06/20 [History] Acetaminophen [Tylenol Extra Strength] 500 mg PO DIRECTED PRN 10/30/20 [History] Celecoxib [CeleBREX] 200 mg PO BID 08/26/23 [History] Formoterol Fumarate 1 dose INHALATION BID 08/26/23 [History] Pulmicort Respulse(Unk) 1 neb INHALATION BID 08/26/23 [History] Aspirin 81 mg PO BID #60 tab 09/03/23 [Rx] Celecoxib [CeleBREX] 200 mg PO BID #60 cap 09/03/23 [Rx] Docusate [Colace] 100 mg PO BID #28 capsule 09/03/23 [Rx] HYDROcodone/APAP 5-325MG [Thornton 5-325] 1 - 2 tab PO Q6HR PRN #32 tab 09/03/23 [Rx] Omeprazole 40 mg PO DAILY #30 cap 09/03/23 [Rx] Follow up Appointment(s)/Referral(s): Otoniel Mo MD [Medical Doctor] - 2 Weeks Activity/Diet/Wound Care/Special Instructions: 1. Weight-bear as tolerated on your operative extremity unless instructed otherwise. Use a walker or other assistive device to ambulate. 2. Leave surgical dressing in place. If your dressing becomes saturated with blood, there is drainage, or the dressing becomes loose please contact the office. 3. It is okay to shower with your surgical dressing, but do not submerge in water (no hot tubs, bath's, swimming etc.) 4. Make sure to take her blood clot prevention medication as prescribed (aspirin, Eliquis, Xarelto, and Plavix are commonly prescribed medications for blood clot prevention) 5. While taking Thornton or Percocet for pain make sure you're taking a stool softener (Colace) and drink lots of water. 6. Keep all follow-up appointments as scheduled. You will usually be seen in 1-2 weeks following surgery. 7. Please contact the office with any questions or concerns [phone] Discharge Disposition: HOME SELF-CARE
[2023-09-03 09:04] VITALS: PULSE 70
--- NOTE | 2023-09-03 10:47 | P.ANPRN ---
Procedure Note - Anesthesia - Nerve Block Performed Left Adductor Canal Single Time Out Performed: Yes Date of Procedure: 09/02/23 Procedure Start Time: 11:47 Procedure Stop Time: 11:51 Location of Patient: PreOp Indication: Acute Post-Operative Pain, Requested by Surgeon Sedation Type: Sedate with meaningful contact maintained Preparation: Sterile Prep Position: Supine Needle Types: Pajunk Needle Gauge: 21 Ultrasound used to visualize needle placement: Yes Ultrasound used to observe medication spread: Yes Blood Aspirated: No Pain Paresthesia on Injection Noted: No Resistance on Injection: Normal Image Stored and Saved: Yes Events: Uneventful and Well Tolerated (Ropivacaine 0.5% 20 mL plus dexamethasone 4 mg)
--- NOTE | 2023-09-03 10:49 | P.ANPRN ---
Procedure Note - Anesthesia - Nerve Block Performed Left iPack Single Time Out Performed: Yes Date of Procedure: 09/02/23 Procedure Start Time: :52 Procedure Stop Time: :53 Location of Patient: PreOp Indication: Acute Post-Operative Pain, Requested by Surgeon Sedation Type: Sedate with meaningful contact maintained Preparation: Sterile Prep Position: Supine Needle Types: Pajunk Needle Gauge: 21 Ultrasound used to visualize needle placement: Yes Ultrasound used to observe medication spread: Yes Blood Aspirated: No Pain Paresthesia on Injection Noted: No Resistance on Injection: Normal Image Stored and Saved: Yes Events: Uneventful and Well Tolerated (Ropivacaine 0.5% 25 mL plus dexamethasone 4 mg)
--- NOTE | 2023-09-03 10:56 | P.PN ---
Subjective Progress Note Date: 09/03/23 Subjective: Patient seen and examined at bedside. No acute events overnight. Pertinent positives and negatives as discussed above, a complete review of systems was performed and all other systems are negative. Vitals Signs Reviewed. General: nontoxic, no distress, appears at stated age Derm: warm, dry, dressing clean, dry, intact Head: atraumatic, normocephalic, symmetric Eyes: EOMI, no lid lag, anicteric sclera Mouth: no lip lesion, mucus membranes moist Cardiovascular: S1S2 reg, no murmur Lungs: CTA bilateral, no rhonchi, no rales , no accessory muscle use Abdominal: soft, nontender to palpation, no guarding, no appreciable organomegaly Ext: no gross muscle atrophy, no edema, no contractures Neuro: CN II-XI grossly intact, no focal neuro deficits Psych: Alert, oriented, appropriate affect Data Reviewed Today: Pertinent Labs: CBC pending, will be reviewed when available Imaging: No new imaging Assessment and Plan: Status post left total knee replacement Tracheomalacia COPD? GERD -On oral [place] as needed, IV Dilaudid as needed, Valium as needed, monitor for respiratory depression -Aspirin 81 mg twice a day for DVT prophylaxis -On bowel regimen -Follows pulmonology outpatient -Continue formoterol twice a day -Continue omeprazole Home medications reviewed and reconciled Patient is medically optimized for discharge. Thank you for allowing us to participate in the care of this pleasant patient. Do not hesitate to contact us with questions. Someone can be reached from the [facility] hospitalist group all hours of the day at [phone] or via perfect serve. Objective - Vital Signs Vital signs: Vital Signs Temp 98.0 F 09/03/23 06:53 Pulse 70 09/03/23 08:48 Resp 18 09/03/23 06:53 BP 126/79 09/03/23 06:53 Pulse Ox 95 09/03/23 08:33 FiO2 Intake & Output 09/02/23 09/03/23 09/03/23 18:59 06:59 18:59 Intake Total 900 Output Total 100 Balance 800 Weight 75.1 kg Intake: IV 900 Output: Estimated Blood Loss 100 Other: # Voids 2
[2023-09-03 11:08] LABS: Basophils # (A) 0.03 X 10*3/uL (0.00-0.10); Basophils % (A) 0.2 %; Eosinophils # (A) 0 X 10*3/uL (0.04-0.35); Eosinophils % (A) 0 %; HCT 35.9 % (39.6-50.0); HGB 11.7 g/dL (13.0-17.0); Lymphocytes # (A) 0.87 X 10*3/uL (0.90-5.00); Lymphocytes % (A) 6.1 %; MCH 32.2 pg (27.0-32.0); MCHC 32.6 g/dL (32.0-37.0); MCV 98.9 FL (80.0-97.0); Mean Platelet Volume 9.3 FL (9.5-12.2); Monocytes # (A) 1.05 X 10*3/uL (0.20-1.00); Monocytes % (A) 7.4 %; NRBC Per 100 WBC 0 X 10*3/uL (0.00-0.01); Neutrophils # (A) 12.23 X 10*3/uL (1.80-7.70); Neutrophils % (A) 85.9 %; Platelet Count 292 X 10*3/uL (140-440); RBC 3.63 X 10*6/uL (4.40-5.60); RDW 12.5 % (11.5-14.5); WBC 14.24 X 10*3/uL (4.50-10.00)
== END 2023-09-03 12:43 | disposition home or self-care (01) ==
LOC: OR 12:56 → 4SSUR 17:15 → OR 09-03 12:43
PROVIDERS: ATTEND Orthopaedic Surgery
DX: M17.12 Unilateral primary osteoarthritis, left knee (principal); G89.18 Other acute postprocedural pain; J44.9 Chronic obstructive pulmonary disease, unspecified; F41.9 Anxiety disorder, unspecified; Z80.0 Family history of malignant neoplasm of digestive organs; Z79.51 Long term (current) use of inhaled steroids; Z79.899 Other long term (current) drug therapy; Z90.49 Acquired absence of other specified parts of digestive tract
CPT/HCPCS: 0055T; 27447; 64447; 64999; 85025; 94640; 94760

== ENCOUNTER 2024-03-01 12:56 | Inpatient (IN) | payer MEDICARE ==
--- NOTE | 2024-03-01 14:02 | ED ---
General Adult HPI - General Chief complaint: Shortness of Breath Stated complaint: SOB Time Seen by Provider: 03/01/24 13:00 Source: patient, RN notes reviewed, old records reviewed Limitations: no limitations - History of Present Illness Initial comments: Is a 78-year-old male who presents to the emergency department complaining that he is short of breath and coughing up quite a bit yellow sputum. Patient also states he had a fever of 101 recently. Patient states he has a history of tracheomalacia. Patient states he has had no chest pain or palpitation. Patient denies any abdominal pain patient any back pain. Patient denies any other symptoms at this time. - Related Data Home Medications Medication Instructions Recorded Confirmed Budesonide [Pulmicort] 0.5 mg INHALATION RT-BID 03/01/24 03/01/24 Formoterol Fumarate [Perforomist] 20 mcg INHALATION RT-BID 03/01/24 03/01/24 Allergies Allergy/AdvReac Type Severity Reaction Status Date / Time No Known Allergies Allergy Verified 03/01/24 15:20 Review of Systems ROS Statement: Those systems with pertinent positive or pertinent negative responses have been documented in the HPI. ROS Other: All systems not noted in ROS Statement are negative. Past Medical History Past Medical History: No Reported History, Respiratory Disorder Additional Past Medical History / Comment(s): TRACHEAL BRONCHOMALACIA, HX RESP FAILURE. History of Any Multi-Drug Resistant Organisms: None Reported Past Surgical History: Appendectomy, Hernia Repair Additional Past Surgical History / Comment(s): appendectomy at 14 yrs old., Right inguinal hernia. Past Anesthesia/Blood Transfusion Reactions: No Reported Reaction, Motion Sick ness Additional Past Anesthesia/Blood Transfusion Reaction / Comment(s): . Past Psychological History: Anxiety Smoking Status: Never smoker Past Alcohol Use History: None Reported Past Drug Use History: None Reported - Past Family History Mother Family Medical History: Cancer Additional Family Medical History / Comment(s): COLON CANCER General Exam - General Exam Comments Initial Comments: GENERAL: Patient is well-developed and well-nourished. Patient is nontoxic and well- hydrated and is in mild distress. ENT: Neck is soft and supple. No significant lymphadenopathy is noted. Oropharynx is clear. Moist mucous membranes. Neck has full range of motion without eliciting any pain. EYES: The sclera were anicteric and conjunctiva were pink and moist. Extraocular movements were intact and pupils were equal round and reactive to light. Eyelids were unremarkable. PULMONARY: Patient has normal breath sounds no wheezing is noted. CARDIOVASCULAR: There is a regular rate and rhythm without any murmurs gallops or rubs. ABDOMEN: Soft and nontender with normal bowel sounds. SKIN: Skin is clear with no lesions or rashes and otherwise unremarkable. NEUROLOGIC: Patient is alert and oriented x3. Cranial nerves II through XII are grossly intact. Motor and sensory are also intact. Normal speech, volume and content. Symmetrical smile. MUSCULOSKELETAL: Normal extremities with adequate strength and full range of motion. LYMPHATICS: No significant lymphadenopathy is noted PSYCHIATRIC: Normal psychiatric evaluation. Limitations: no limitations Course Vital Signs 03/01/24 03/01/24 03/01/24 12:57 14:19 15:24 Temperature 97.7 F 100.3 F H 98.9 F Pulse Rate 131 H 91 Respiratory 18 18 Rate Blood Pressure 128/82 122/89 O2 Sat by Pulse 96 97 Oximetry Medical Decision Making - Medical Decision Making EKG is interpreted by myself. EKG shows history of atrial fibrillation with rapid ventricular sponsor 106 bpm QRS 86 QT interval 319 QTc is 300 patient's EKG shows no ST segment ovation or depression. Was pt. sent in by a medical professional or institution (, PA, SWITCHBOARD AND CONTROL ROOM OPERATOR, urgent care, hospital, or snf...) When possible be specific @ -No Did you speak to anyone other than the patient for history (EMS, parent, family, police, friend...)? What history was obtained from this source @ -No Did you review nursing and triage notes (agree or disagree)? Why? @ -I reviewed and agree with nursing and triage notes Were old charts reviewed (outside hosp., previous admission, EMS record, old EKG, old radiological studies, urgent care reports/EKG's, snf records)? Report findings @ -Compared today's chest x-ray with a prior chest x-ray from a previous admission today has a right lower lobe infiltrate Differential Diagnosis? @ -Differential Fever: Pneumonia, viral URI, endocarditis, myocarditis, pericarditis, otitis, sinusitis , peritonsillar Abscess, retropharyngeal Abscess, epiglottitis, peritonitis, appendicitis, Tere cystitis, diverticulitis, hepatitis, colitis, UTI, PID, TOA, pyelonephritis, prostatitis, epididymitis, meningitis, encephalitis, pulmonary embolism, CVA, thyroid storm, pancreatitis, adrenal crisis, cavernous sinus thrombosis, this is not meant to be an all-inclusive list. EKG interpreted by me (3pts min.). @ -As above X-rays interpreted by me (1pt min.). @ -Chest x-ray shows right lower lobe pneumonia CT interpreted by me (1pt min.). @ -None done U/S interpreted by me (1pt. min.). @ -None done What testing was considered but not performed or refused? (CT, X-rays, U/S, labs)? Why? @ -None What meds were considered but not given or refused? Why? @ -None Did you discuss the management of the patient with other professionals (professionals i.e. , PA, SWITCHBOARD AND CONTROL ROOM OPERATOR, lab, RT, psych nurse, social security benefits interviewer, pulp piler, teacher, chief media officer, patient case coordinator)? Give summary @ -I spoke with sound physicians and they agreed to admit the patient I started the patient on antibiotics Was smoking cessation discussed for >3mins.? @ -No Was critical care preformed (if so, how long)? @ -No Were there social determinants of health that impacted care today? How? (Homelessness, low income, unemployed, alcoholism, drug addiction, transportation, low edu. Level, literacy, decrease access to med. care, [facility], rehab)? @ -No Was there de-escalation of care discussed even if they declined (Discuss DNR or withdrawal of care, Hospice)? DNR status @ -No What co-morbidities impacted this encounter? (DM, HTN, Smoking, COPD, CAD, Cancer, CVA, ARF, Chemo, Hep., AIDS, mental health diagnosis, sleep apnea, morbid obesity)? @ -None Was patient admitted / discharged? Hospital course, mention meds given and route, prescriptions, significant lab abnormalities, going to OR and other pertinent info. @ -Patient had pneumonia so patient will be admitted for pneumonia and placed on antibiotics. Consult their cdl company flatbed driver. Patient also was in A-fib which she states he is not normally in however he has had it once before so I will consult cardiology Undiagnosed new problem with uncertain prognosis? @ -No Drug Therapy requiring intensive monitoring for toxicity (Heparin, Nitro, Insulin, Cardizem)? @ -No Were any procedures done? @ -No Diagnosis/symptom? @ -Pneumonia Acute, or Chronic, or Acute on Chronic? @ -Acute Uncomplicated (without systemic symptoms) or Complicated (systemic symptoms)? @ -Complicated Side effects of treatment? @ -No Exacerbation, Progression, or Severe Exacerbation? @ -No Poses a threat to life or bodily function? How? (Chest pain, USA, CT, pneumonia, PE, COPD, DKA, ARF, appy, cholecystitis, CVA, Diverticulitis, Homicidal, Suicidal, threat to staff... and all critical care pts) @ -Yes this could lead to sepsis and endorgan dysfunction Diagnosis/symptom? @ -Atrial fibrillation Acute, or Chronic, or Acute on Chronic? @ -Acute Uncomplicated (without systemic symptoms) or Complicated (systemic symptoms)? @ -Complicated Side effects of treatment? @ -None Exacerbation, Progression, or Severe Exacerbation] @ -No Poses a threat to life or bodily function? @ -Yes this could lead to clot and stroke with significant morbidity and mortality - Lab Data Result diagrams: 03/01/24 14:04 03/01/24 14:04 Lab Results 03/01/24 03/01/24 03/01/24 Range/Units 14:04 14:04 14:04 WBC 13.4 H (3.8-10.6) k/uL RBC 4.01 L (4.30-5.90) m/uL Hgb 12.7 L (13.0-17.5) gm/dL Hct 40.3 (39.0-53.0) % MCV 100.5 H (80.0-100.0) fL MCH 31.8 (25.0-35.0) pg MCHC 31.7 (31.0-37.0) g/dL RDW 13.4 (11.5-15.5) % Plt Count 373 (150-450) k/uL MPV 7.7 Neutrophils % 88 % Lymphocytes % 4 % Monocytes % 7 % Eosinophils % 0 % Basophils % 0 % Neutrophils # 11.8 H (1.3-7.7) k/uL Lymphocytes # 0.5 L (1.0-4.8) k/uL Monocytes # 0.9 (0-1.0) k/uL Eosinophils # 0.0 (0-0.7) k/uL Basophils # 0.0 (0-0.2) k/uL Sodium 137 (137-145) mmol/L Potassium 4.5 (3.5-5.1) mmol/L Chloride 106 (98-107) mmol/L Carbon Dioxide 23 (22-30) mmol/L Anion Gap 8 mmol/L BUN 37 H (9-20) mg/dL Creatinine 0.95 (0.66-1.25) mg/dL Est GFR (CKD-EPI)AfAm 88 (>60 ml/min/1.73 sqM) Est GFR (CKD-EPI)NonAf 76 (>60 ml/min/1.73 sqM) Glucose 139 H (74-99) mg/dL Plasma Lactic Acid Gee 1.7 (0.7-2.0) mmol/L Calcium 8.9 (8.4-10.2) mg/dL Total Bilirubin 0.9 (0.2-1.3) mg/dL AST 108 H (17-59) U/L ALT 106 H (4-49) U/L Alkaline Phosphatase 225 H (38-126) U/L Troponin I (0.000-0.034) ng/mL Total Protein 6.6 (6.3-8.2) g/dL Albumin 3.3 L (3.5-5.0) g/dL Influenza Type A (PCR) (Not Detectd) Influenza Type B (PCR) (Not Detectd) RSV (PCR) (Not Detectd) SARS-CoV-2 (PCR) (Not Detectd) 03/01/24 03/01/24 Range/Units 14:04 14:15 WBC (3.8-10.6) k/uL RBC (4.30-5.90) m/uL Hgb (13.0-17.5) gm/dL Hct (39.0-53.0) % MCV (80.0-100.0) fL MCH (25.0-35.0) pg MCHC (31.0-37.0) g/dL RDW (11.5-15.5) % Plt Count (150-450) k/uL MPV Neutrophils % % Lymphocytes % % Monocytes % % Eosinophils % % Basophils % % Neutrophils # (1.3-7.7) k/uL Lymphocytes # (1.0-4.8) k/uL Monocytes # (0-1.0) k/uL Eosinophils # (0-0.7) k/uL Basophils # (0-0.2) k/uL Sodium (137-145) mmol/L Potassium (3.5-5.1) mmol/L Chloride (98-107) mmol/L Carbon Dioxide (22-30) mmol/L Anion Gap mmol/L BUN (9-20) mg/dL Creatinine (0.66-1.25) mg/dL Est GFR (CKD-EPI)AfAm (>60 ml/min/1.73 sqM) Est GFR (CKD-EPI)NonAf (>60 ml/min/1.73 sqM) Glucose (74-99) mg/dL Plasma Lactic Acid Gee (0.7-2.0) mmol/L Calcium (8.4-10.2) mg/dL Total Bilirubin (0.2-1.3) mg/dL AST (17-59) U/L ALT (4-49) U/L Alkaline Phosphatase (38-126) U/L Troponin I 0.022 (0.000-0.034) ng/mL Total Protein (6.3-8.2) g/dL Albumin (3.5-5.0) g/dL Influenza Type A (PCR) Not Detected (Not Detectd) Influenza Type B (PCR) Not Detected (Not Detectd) RSV (PCR) Not Detected (Not Detectd) SARS-CoV-2 (PCR) Not Detected (Not Detectd) Critical Care Time Critical Care Time: Yes Total Critical Care Time: 35 Disposition Clinical Impression: Fibrillation, atrial, Pneumonia Disposition: ADMITTED IP TO THIS HOSP Referrals: Freddy Edwards MD [Primary Care Provider] - 1-2 days Time of Disposition: 16:39
[2024-03-01] MEDS: SODIUM CHLORIDE 0.9% 500 ML 500 ML IV SCH (14:27)
[2024-03-01] MEDS: IBUPROFEN 600 MG TAB PO STA (14:28)
[2024-03-01] MEDS: ACETAMINOPHEN TAB 500 MG TAB PO STA (14:28)
[2024-03-01] MEDS: PIPERACILLIN-TAZOBACTAM 3.375 GM in SODIUM CHLORIDE 0.9% 100 ML IVPB STA (14:31)
--- NOTE | 2024-03-01 14:41 | XR ---
EXAMINATION TYPE: XR chest 2V DATE OF EXAM: 03/01/2024 COMPARISON: 03/01/2020 TECHNIQUE: PA and lateral views submitted. HISTORY: Fever and cough FINDINGS: Underlying emphysematous change with borderline to mild cardiomegaly. Atherosclerotic change aorta. D iffuse osteopenia with arthropathy of the shoulders. There is right lower lobe infiltrate. Subsegment al changes left lower lobe. Osseous structures demonstrate hypertrophic and degenerative changes of t he spine. IMPRESSION: 1. Right lower lobe infiltrate correlate for early pneumonia. 2. COPD.
[2024-03-01 14:50] LABS: Basophils % (A) 0 %; Eosinophils % (A) 0 %; HCT 40.3 % (39.0-53.0); HGB 12.7 gm/dL (13.0-17.5); Lymphocytes # (A) 0.5 k/uL (1.0-4.8); Lymphocytes % (A) 4 %; MCH 31.8 pg (25.0-35.0); MCHC 31.7 g/dL (31.0-37.0); MCV 100.5 fL (80.0-100.0); Mean Platelet Volume 7.7; Monocytes # (A) 0.9 k/uL (0-1.0); Monocytes % (A) 7 %; Neutrophils # (A) 11.8 k/uL (1.3-7.7); Neutrophils % (A) 88 %; Platelet Count 373 k/uL (150-450); RBC 4.01 m/uL (4.30-5.90); RDW 13.4 % (11.5-15.5); WBC 13.4 k/uL (3.8-10.6)
[2024-03-01 16:00] LABS: ALT 106 U/L (4-49); AST 108 U/L (17-59); African American GFR (CKD) 88 (>60 ml/min/1.73 sqM); Albumin 3.3 g/dL (3.5-5.0); Alkaline Phosphatase 225 U/L (38-126); Anion Gap 8 mmol/L; Blood Urea Nitrogen 37 mg/dL (9-20); Calcium 8.9 mg/dL (8.4-10.2); Carbon Dioxide 23 mmol/L (22-30); Chloride 106 mmol/L (98-107); Glucose 139 mg/dL (74-99); Non-African American GFR(CKD) 76 (>60 ml/min/1.73 sqM); Potassium 4.5 mmol/L (3.5-5.1); Sodium 137 mmol/L (137-145); Total Bilirubin 0.9 mg/dL (0.2-1.3); Total Protein 6.6 g/dL (6.3-8.2)
[2024-03-01] MEDS ORDERED: PNEUMONIA PROTOCOL UTILIZED 1 EACH MISC PO PRN (16:41)
--- NOTE | 2024-03-01 17:08 | P.HPIM ---
History of Present Illness H&P Date: 03/01/24 Chief Complaint: Cough This is a 78-year-old white male who reported to the hospital with shortness of breath that has been going on for about a week associated with cough with yellowish-greenish sputum production. He also reports fever with temperature 101.3. He denies hematuria dysuria hematemesis hematochezia. He denies chest pain. He also reports nausea and decreased oral intake, no vomiting. At the time of examination patient is in bed, does not appear to be in distress, his is at bedside. Review of Systems 10 systems reviewed, pertinent positive and negative findings in HPI. Cough, sputum production No chest pain, no abdominal painNo chest pain, no abdominal pain Past Medical History Past Medical History: No Reported History, Respiratory Disorder Additional Past Medical History / Comment(s): TRACHEAL BRONCHOMALACIA, HX RESP FAILURE. History of Any Multi-Drug Resistant Organisms: None Reported Past Surgical History: Appendectomy, Hernia Repair Additional Past Surgical History / Comment(s): appendectomy at 14 yrs old., Right inguinal hernia. Past Anesthesia/Blood Transfusion Reactions: No Reported Reaction, Motion Sickness Additional Past Anesthesia/Blood Transfusion Reaction / Comment(s): . Past Psychological History: Anxiety Smoking Status: Never smoker Past Alcohol Use History: None Reported Past Drug Use History: None Reported - Past Family History Mother Family Medical History: Cancer Additional Family Medical History / Comment(s): COLON CANCER Medications and Allergies Home Medications Medication Instructions Recorded Confirmed Type Budesonide [Pulmicort] 0.5 mg INHALATION RT-BID 03/01/24 03/01/24 History Formoterol Fumarate [Perforomist] 20 mcg INHALATION RT-BID 03/01/24 03/01/24 History Allergies Allergy/AdvReac Type Severity Reaction Status Date / Time No Known Allergies Allergy Verified 03/01/24 15:20 Physical Exam Vitals: Vital Signs Temp Pulse Resp BP Pulse Ox 03/01/24 15:24 98.9 F 91 18 122/89 97 03/01/24 14:19 100.3 F H 03/01/24 12:57 97.7 F 131 H 18 128/82 96 Intake and Output 03/01/24 03/01/24 03/01/24 06:59 14:59 22:59 Other: Weight 72.575 kg Constitutional: No acute distress, conversant, pleasant Eyes: Anicteric sclerae, moist conjunctiva, no lid-lag, PERRLA ENMT: NC/AT,Oropharynx clear, no erythema, exudates Neck:Supple, FROM, no masses, or JVD, No carotid bruits; No thyromegaly Lungs: Clear to auscultation, Clear to percussion, Normal respiratory effort, no accessory muscle use Cardiovascular: Heart regular in rate and rhythm, No murmurs, gallops, or rubs no peripheral edema Abdominal: Soft Nontender, non distended, no guarding, no rebound or rigidity, Normoactive bowel sounds No hepatomegaly, No splenomegaly, No palpable mass No abdominal wall hernia noted Skin: Normal temperature, tone, texture, turgor, No induration No subcutaneous nodules, No rash, lesions, No ulcers Extremities:No digital cyanosis No clubbing, Pedal pulses intact and symmet rical Radial pulses intact and symmetrical Normal gait and station, No calf tenderness Psychiatric: Alert and oriented to person, place and time, Appropriate affect Intact judgement Neuro: Muscles Strength 5/5 in all 4 extremities, Sensation to light touch grossly present throughout, Cranial nerves II-XII grossly intact. No focal sensory deficits Results CBC & Chem 7: 03/01/24 14:04 03/01/24 14:04 Labs: Abnormal Lab Results - Last 24 Hours (Table) 03/01/24 03/01/24 Range/Units 14:04 14:04 WBC 13.4 H (3.8-10.6) k/uL RBC 4.01 L (4.30-5.90) m/uL Hgb 12.7 L (13.0-17.5) gm/dL MCV 100.5 H (80.0-100.0) fL Neutrophils # 11.8 H (1.3-7.7) k/uL Lymphocytes # 0.5 L (1.0-4.8) k/uL BUN 37 H (9-20) mg/dL Glucose 139 H (74-99) mg/dL AST 108 H (17-59) U/L ALT 106 H (4-49) U/L Alkaline Phosphatase 225 H (38-126) U/L Albumin 3.3 L (3.5-5.0) g/dL Assessment and Plan Plan: Assessment and plan: 1. Right-sided pneumonia unspecified organism: Received Rocephin and Zithromax,, continue current antibiotics current antibiotics, pulmonology consultation. Oxygen bronchodilators as indicated. 2. New onset atrial fibrillation with RVR:New-onset atrial fibrillation with RVR: Obtain 2D echo, cardiology consultation, rate control medications as indicated. Heparin drip. 3. COPD with mild exacerbation: Oxygen bronchodilators as indicated 4. History of tracheomalacia: Supportive care, flutter valve. 5. GERD without esophagitis: Continue PPI 6. SIRS without sepsis secondary to pneumonia: Treat underlying condition 7. Hypokalemia: Start normal saline 75 mL/h7. Disposition: Home in the next 2 to 3 days pending clinical progression.
[2024-03-01 17:41] LABS: Basophils % (A) 0 %; Eosinophils % (A) 0 %; HCT 35.4 % (39.0-53.0); HGB 11.4 gm/dL (13.0-17.5); Lymphocytes # (A) 0.6 k/uL (1.0-4.8); Lymphocytes % (A) 5 %; MCH 32.2 pg (25.0-35.0); MCHC 32.2 g/dL (31.0-37.0); MCV 100.1 fL (80.0-100.0); Mean Platelet Volume 7.3; Monocytes # (A) 0.7 k/uL (0-1.0); Monocytes % (A) 6 %; Neutrophils # (A) 9.7 k/uL (1.3-7.7); Neutrophils % (A) 87 %; Platelet Count 353 k/uL (150-450); RBC 3.54 m/uL (4.30-5.90); RDW 13.3 % (11.5-15.5); WBC 11.1 k/uL (3.8-10.6)
[2024-03-01] MEDS: AZITHROMYCIN 500 MG in SODIUM CHLORIDE 0.9% 250 ML IVPB STA (17:51)
[2024-03-01 17:54] LABS: ALT 94 U/L (4-49); AST 84 U/L (17-59); African American GFR (CKD) 88 (>60 ml/min/1.73 sqM); Alkaline Phosphatase 206 U/L (38-126); Anion Gap 7 mmol/L; Blood Urea Nitrogen 35 mg/dL (9-20); Calcium 8.4 mg/dL (8.4-10.2); Carbon Dioxide 22 mmol/L (22-30); Chloride 108 mmol/L (98-107); Glucose 128 mg/dL (74-99); Non-African American GFR(CKD) 76 (>60 ml/min/1.73 sqM); Potassium 4.5 mmol/L (3.5-5.1); Sodium 137 mmol/L (137-145); Total Bilirubin 0.9 mg/dL (0.2-1.3); Total Protein 6.1 g/dL (6.3-8.2)
[2024-03-01] MEDS: SODIUM CHLORIDE 0.9% 1,000 ML IV STA (17:55)
[2024-03-01] MEDS: HEPARIN SOD,PORK IN 0.45% NACL 25,000 UNIT in 0.45% NACL 1 250ML.BAG IV SCH (18:16)
[2024-03-01] MEDS: HEPARIN SODIUM 1,000 UN/ML (10ML VL) IV ONE (18:18)
[2024-03-01] MEDS: IPRATROPIUM-ALBUTEROL 3 ML NEB INHALATION SCH (19:40)
--- NOTE | 2024-03-02 04:21 | P.CNPUL ---
History of Present Illness Consult date: 03/02/24 Requesting physician: Eduar Sanches Reason for consult: pneumonia Chief complaint: Shortness of breath, cough History of present illness: Patient is a 78-year-old white male with past medical history significant for tracheobronchomalacia, acquired bronchiectasis and recurrent respiratory infe ctions. Reportedly follows in the pulmonary office with Dr. Milian. He has underwent bronchoscopies in the past, previously diagnosed with tracheobronchomalacia. Patient presented emergency department yesterday afternoon complaining of 1 week of worsening shortness of breath with associated productive cough and yellow sputum. He also had a recorded fever of 100.8 F at home. Denies any chest pain, hemoptysis. Denies nausea, vomiting, diarrhea, abdominal pain. He was noted to be in A-fib RVR in the emergency department and started on a heparin infusion. Patient states that during previous cataract surgery done earlier in the year, he may have had atrial fibrillation, but never confirmed. Denies any heart palpitations, lightheadedness, syncopal events. He is currently lying in bed, on room air, in no acute distress. Chest x-ray showed a right lower lobe infiltrate concerning for pneumonia. CBC: WBC count 11.1, hemoglobin 11.4, hematocrit 435, platelets 353. BMP: Sodium 137, potassium 4.5, chloride 108, serum bicarb 22, BUN 35, creatinine 0.95, glucose 128. AST 84, ALT 94, ALP 206. Troponin 0.022. Negative for influenza, RSV, COVID. Tmax 100.3 F. Appears nontoxic. Vitals are stable. Review of Systems REVIEW OF SYSTEMS: CONSTITUTIONAL: Denies any recent significant weight loss or weight gain. EYES: Denies change in vision. EARS, NOSE, MOUTH, THROAT: Denies headaches, denies sore throat. CARDIOVASCULAR: Denies chest pain, palpitations or syncopal episodes. RESPIRATORY: See HPI GASTROINTESTINAL: Denies change in appetite, abdominal pain, nausea and vomiting, or diarrhea GENITOURINARY: Denies hematuria, denies infections. MUSKULOSKELETAL: Denies pain, denies swelling. INTEGUMENTARY: Denies rash, denies eczema. NEUROLOGICAL: Denies recent memory loss, no recent seizure activity. PSYCHIATRIC: Denies anxiety, denies depression. HEMATOLOGIC/LYMPHATIC: Denies anemia, denies enlarged lymph node Past Medical History Past Medical History: No Reported History, Respiratory Disorder Additional Past Medical History / Comment(s): TRACHEAL BRONCHOMALACIA, HX RESP FAILURE. History of Any Multi-Drug Resistant Organisms: None Reported Past Surgical History: Appendectomy, Hernia Repair, Joint Replacement Additional Past Surgical History / Comment(s): appendectomy at 14 yrs old., Right inguinal hernia. left knee replacement aug 2023 Past Anesthesia/Blood Transfusion Reactions: No Reported Reaction, Motion Sickness Additional Past Anesthesia/Blood Transfusion Reaction / Comment(s): . Past Psychological History: Anxiety Additional Psychological History / Comment(s): SOME ANXIETY WITH SOB. Smoking Status: Never smoker Past Alcohol Use History: None Reported Past Drug Use History: None Reported - Past Family History Mother Family Medical History: Cancer Additional Family Medical History / Comment(s): COLON CANCER Medications and Allergies Home Medications Medication Instructions Recorded Confirmed Type Budesonide [Pulmicort] 0.5 mg INHALATION RT-BID 03/01/24 03/01/24 History Formoterol Fumarate [Perforomist] 20 mcg INHALATION RT-BID 03/01/24 03/01/24 History Allergies Allergy/AdvReac Type Severity Reaction Status Date / Time No Known Allergies Allergy Verified 03/01/24 15:20 Physical Exam Vitals: Vital Signs Temp Pulse Pulse Resp BP BP Pulse Ox 03/01/24 23:13 97.9 F 106 H 17 128/87 97 03/01/24 21:52 97.8 F 98 17 144/94 98 03/01/24 21:48 100 17 138/95 96 03/01/24 21:36 97.6 F 03/01/24 20:30 100 17 132/93 03/01/24 19:57 90 03/01/24 19:40 84 03/01/24 17:00 92 20 118/86 97 03/01/24 15:24 98.9 F 91 18 122/89 97 03/01/24 15:00 100 18 135/88 97 03/01/24 14:19 100.3 F H 03/01/24 13:08 95 03/01/24 12:57 97.7 F 131 H 18 128/82 96 Intake and Output 03/01/24 03/01/24 03/02/24 14:59 22:59 06:59 Intake Total 69.833 Balance 69.833 Intake: Intake, IV Titration 69.833 Amount Heparin Sod,Pork in 0.45% 69.833 NaCl 25,000 unit In 0.45 % NaCl 1 250ml.bag @ 13. 779 UNITS/KG/HR 10 mls/hr IV .Q24H [facility] Rx#: [id number] Other: Voiding Method Toilet Toilet # Voids 2 Weight 72.575 kg 72.575 kg 80.5 kg GENERAL EXAM: Alert, 78-year-old white male, nontoxic appearance, comfortable in no apparent distress. HEAD: Normocephalic and atraumatic EYES: Normal reaction of pupils, equal size. NOSE: Clear with pink turbinates. THROAT: No erythema or exudates. NECK: No masses, no JVD. CHEST: No chest wall deformity. LUNGS: Equal air entry with scattered rhonchi. Occasional congested cough. Sputum basin at bedside has thick yellow/green sputum. On room air. No conversational dyspnea or accessory muscle use.. CVS: S1 and S2 normal with no audible murmur, irregular rhythm. No extra heart sounds ABDOMEN: No hepatosplenomegaly, active bowel sounds, no guarding or rigidity. SPINE: No scoliosis or deformity SKIN: No rashes CENTRAL NERVOUS SYSTEM: No focal deficits, tone is normal in all 4 extremities. EXTREMITIES: There is no peripheral edema, clubbing, or cyanosis. Peripheral pulses are intact. Results - Laboratory Findings CBC and BMP: 03/02/24 12:24 03/02/24 12:24 Abnormal lab findings: Abnormal Labs 03/01/24 03/01/24 03/01/24 14:04 14:04 17:17 WBC 13.4 H 11.1 H RBC 4.01 L 3.54 L Hgb 12.7 L 11.4 L Hct 35.4 L MCV 100.5 H 100.1 H Neutrophils # 11.8 H 9.7 H Lymphocytes # 0.5 L 0.6 L APTT Chloride BUN 37 H Glucose 139 H AST 108 H ALT 106 H Alkaline Phosphatase 225 H Total Protein Albumin 3.3 L 03/01/24 03/02/24 17:17 00:15 WBC RBC Hgb Hct MCV Neutrophils # Lymphocytes # APTT 38.8 H Chloride 108 H BUN 35 H Glucose 128 H AST 84 H ALT 94 H Alkaline Phosphatase 206 H Total Protein 6.1 L Albumin 3.0 L - Diagnostic Findings Chest x-ray: image reviewed Assessment and Plan Assessment: Right lower lobe community-acquired pneumonia, Chest x-ray showing a right lower lobe infiltrate concerning for pneumonia. Acute dyspnea, secondary to above Atrial fibrillation, currently with controlled ventricular response History of acquired bronchiectatis History of tracheobronchomalacia Mild transaminitis Plan: Patient's medications, labs, chest x-ray reviewed On room air Continue combination of azithromycin and Rocephin Continue bronchodilators, budesonide and formoterol inhalations Sputum culture pending Blood cultures pending Viral panel negative for influenza, RSV, COVID. Repeat chest x-ray in the morning [id number] score 2 in a male. Heparin is infusing per protocol. Ventricular response is controlled. Cardiology is managing We will also continue to follow I have personally seen and examined the patient, performed the documentation and the assessment and plan as written. Number of minutes spent on the visit:20 On 03/02/2024, patient is being seen for a joint evaluation along with the nurse practitioner. The patient is known to me as the patient is known to have severe tracheobronchomalacia and chronic acquired bronchiectasis related to recurrent respiratory tract infection the patient has been maintained on a combination of Perforomist and Pulmicort nebulized treatments twice a day. The patient has been doing well and approximately a week ago he started having worsening shortness of breath. He is chest x-ray was reviewed from the current admission and the patient has changes consistent with COPD and questionable right lower lobe pulm infiltrates/pneumonia. Based on that, the patient was started on broad-spectrum antibiotics and the patient is currently on Rocephin and Zithromax combination. Awaiting sputum Gram stain and culture. Sputum sample has been collected. Echocardiogram is essentially within normal limits. The viral screen was negative. Legionella urine antigen was negative. Renal function is stable. His cardiac rhythm is atrial fibrillation which is essentially a chronic finding. He is on anticoagulation with Eliquis. Rate is controlled with Toprol 50 mg XL on a daily basis. Condition is stable. Will continue to follow. Currently on oxygen on room air with a pulse ox of 94%. Time with Patient: Greater than 30
--- NOTE | 2024-03-02 07:38 | XR ---
EXAMINATION TYPE: XR chest 1V portable DATE OF EXAM: 03/02/2024 COMPARISON: 03/01/2024 HISTORY: Pneumonia TECHNIQUE: Single frontal view of the chest is obtained. FINDINGS: Underlying emphysematous change with borderline to mild cardiomegaly. Atherosclerotic [place] ge aorta. Diffuse osteopenia with arthropathy of the shoulders. There is right lower lobe infiltrate. Subsegmental changes left lower lobe. Osseous structures demonstrate hypertrophic and degenerative c hanges of the spine. IMPRESSION: 1. Stable right lower lobe infiltrate. 2. COPD.
[2024-03-02] MEDS: AZITHROMYCIN 500 MG TAB PO SCH (08:43)
[2024-03-02] MEDS: BUDESONIDE 1 MG/2 ML NEBU INHALATION SCH (09:29)
[2024-03-02] MEDS: FORMOTEROL FUMARATE 20 MCG/2 ML NEBU INHALATION SCH (09:30)
--- NOTE | 2024-03-02 10:12 | CA ---
Transthoracic Echo Report Name: Tayo Ley Age: 78 Gender: M : 1945 Exam Date: 03/02/2024 09:20 Exam Location: [facility] Ht (in): 68 Wt (lb): 160 Ordering Physician: Twila Prasad MD Attending/Referring Phys: Pneumatic Tube Operator Ketty De La O RDCS Procedure CPT: Indications: afib Cardiac Hx: Technical Quality: Good Contrast 1: Total Dose (mL): Contrast 2: Total Dose (mL): MEASUREMENTS (Male / Female) Normal Values 2D ECHO LV Diastolic Diameter PLAX 4.6 cm 4.2 - 5.9 / 3.9 - 5.3 cm LV Systolic Diameter PLAX 3.4 cm IVS Diastolic Thickness 1.2 cm 0.6 - 1.0 / 0.6 - 0.9 cm LVPW Diastolic Thickness 1.2 cm 0.6 - 1.0 / 0.6 - 0.9 cm LV Relative Wall Thickness 0.5 RV Internal Dim ED PLAX 3.7 cm LA Systolic Diameter LX 3.9 cm 3.0 - 4.0 / 2.7 - 3.8 cm LV Diastolic Volume MOD 4C 129.2 cm??? LV Systolic Volume MOD 4C 66.3 cm??? LV Ejection Fraction MOD 4C 48.7 % LV Cardiac Index MOD 4C 3728.1 cm???/min???m??? LV Diastolic Length 4C 9.4 cm LV Systolic Length 4C 8.1 cm LV Diastolic Volume MOD 2C 130.1 cm??? LV Systolic Volume MOD 2C 46.9 cm??? LV Ejection Fraction MOD 2C 63.9 % LV Cardiac Index MOD 2C 4930.6 cm???/min???m??? LV Diastolic Length 2C 9.0 cm LV Systolic Length 2C 7.3 cm LA Volume 60.0 cm??? 18 - 58 / 22 - 52 cm??? LA Volume Index 32.0 cm???/m??? 16 - 28 cm???/m??? M-MODE Aortic Root Diameter MM 3.3 cm AV Cusp Separation MM 2.4 cm DOPPLER AV Peak Velocity 101.4 cm/s AV Peak Gradient 4.1 mmHg MV Area PHT 5.0 cm??? MV Deceleration Time 158.0 ms TR Peak Velocity 286.3 cm/s TR Peak Gradient 32.8 mmHg Right Ventricular Systolic Press 37.0 mmHg FINDINGS Left Ventricle Left ventricular ejection fraction is estimated at 50-55 %. Left ventricular cavity size normal.Mildly increased left ventricular wall thickness. No obvious regional wall motion abnormalities. Right Ventricle Mild right ventricular dilatation. Mild pulmonary hypertension. Right Atrium Normal right atrial size. Left Atrium Mildly increased left atrial volume. Mitral Valve Mitral valve thickened. Mild mitral regurgitation. Aortic Valve Trileaflet aortic valve. No aortic valve stenosis or regurgitation. Tricuspid Valve Structurally normal tricuspid valve. moderate tricuspid regurgitation. Pulmonic Valve Structurally normal pulmonic valve. No pulmonic regurgitation. Pericardium No pericardial effusion. Aorta Normal size aortic root and proximal ascending aorta. CONCLUSIONS 1. Left ventricular systolic function borderline normal 2. Mild mitral with moderate tricuspid regurgitation and mild pulmonary hypertension Previewed by: Dr. Sanju Lockhart MD (Electronically Signed) Final Date: 02 March 2024 10:12
--- NOTE | 2024-03-02 10:41 | P.PN ---
Subjective Progress Note Date: 03/02/24 She is better today, Remains on room afebrile, no chest pain no nausea no vomiting no dizziness. Still has episodes of cough with sputum production. Objective - Vital Signs Vital signs: Vital Signs Temp 98.4 F 03/02/24 08:40 Pulse 100 03/02/24 09:54 Resp 20 03/02/24 08:40 BP 138/86 03/02/24 08:40 Pulse Ox 95 03/02/24 08:40 FiO2 Intake & Output 03/01/24 03/02/24 03/02/24 18:59 06:59 18:59 Intake Total 69.833 Balance 69.833 Weight 72.575 kg 80.5 kg Intake: Intake, IV Titration 69.833 Amount Heparin Sod,Pork in 0.45% 69.833 NaCl 25,000 unit In 0.45 % NaCl 1 250ml.bag @ 13. 779 UNITS/KG/HR 10 mls/hr IV .Q24H [facility] Rx#: [id number] Other: Voiding Method Toilet # Voids 2 1 - Exam Constitutional: No acute distress, conversant, pleasant Eyes: Anicteric sclerae, moist conjunctiva, no lid-lag, PERRLA ENMT: NC/AT,Oropharynx clear, no erythema, exudates Neck:Supple, FROM, no masses, or JVD, No carotid bruits; No thyromegaly Lungs: Clear to auscultation, Clear to percussion, Normal respiratory effort, no accessory muscle use Cardiovascular: Heart regular in rate and rhythm, No murmurs, gallops, or rubs no peripheral edema Abdominal: Soft Nontender, nom distended, no guarding, no rebound or rigidity, Normoactive bowel sounds No hepatomegaly, No splenomegaly, No palpable mass No abdominal wall hernia noted Skin: Normal temperature, tone, texture, turgor, No induration No subcutaneous nodules, No rash, lesions, No ulcers Extremities:No digital cyanosis No clubbing, Pedal pulses intact and symmetrical Radial pulses intact and symmetrical Normal gait and station, No calf tenderness Psychiatric: Alert and oriented to person, place and time, Appropriate affect Intact judgement Neuro: Muscles Strength 5/5 in all 4 extremities, Sensation to light touch grossly present throughout, Cranial nerves II-XII grossly intact. No focal sensory deficits - Labs CBC & Chem 7: 03/01/24 17:17 03/01/24 17:17 Labs: Abnormal Lab Results - Last 24 Hours (Table) 03/01/24 03/01/24 03/01/24 Range/Units 14:04 14:04 17:17 WBC 13.4 H 11.1 H (3.8-10.6) k/uL RBC 4.01 L 3.54 L (4.30-5.90) m/uL Hgb 12.7 L 11.4 L (13.0-17.5) gm/dL Hct 35.4 L (39.0-53.0) % MCV 100.5 H 100.1 H (80.0-100.0) fL Neutrophils # 11.8 H 9.7 H (1.3-7.7) k/uL Lymphocytes # 0.5 L 0.6 L (1.0-4.8) k/uL APTT (22.0-30.0) sec Chloride (98-107) mmol/L BUN 37 H (9-20) mg/dL Glucose 139 H (74-99) mg/dL AST 108 H (17-59) U/L ALT 106 H (4-49) U/L Alkaline Phosphatase 225 H (38-126) U/L Total Protein (6.3-8.2) g/dL Albumin 3.3 L (3.5-5.0) g/dL 03/01/24 03/02/24 Range/Units 17:17 00:15 WBC (3.8-10.6) k/uL RBC (4.30-5.90) m/uL Hgb (13.0-17.5) gm/dL Hct (39.0-53.0) % MCV (80.0-100.0) fL Neutrophils # (1.3-7.7) k/uL Lymphocytes # (1.0-4.8) k/uL APTT 38.8 H (22.0-30.0) sec Chloride 108 H (98-107) mmol/L BUN 35 H (9-20) mg/dL Glucose 128 H (74-99) mg/dL AST 84 H (17-59) U/L ALT 94 H (4-49) U/L Alkaline Phosphatase 206 H (38-126) U/L Total Protein 6.1 L (6.3-8.2) g/dL Albumin 3.0 L (3.5-5.0) g/dL Assessment and Plan Plan: Assessment and plan: 1. Right-sided pneumonia unspecified organism: Received Rocephin and Zithromax,, continue current antibiotics current antibiotics, pulmonology consultation, Input appreciated. Oxygen bronchodilators as indicated. 2. New onset atrial fibrillation with RVR:New-onset atrial fibrillation with RV R: Obtained 2D echoUnremarkable., cardiology consultation, rate control medications as indicated. Heparin drip. 3. COPD with mild exacerbation: Oxygen bronchodilators as indicated 4. History of tracheomalacia: Supportive care, flutter valve. 5. GERD without esophagitis: Continue PPI 6. SIRS without sepsis secondary to pneumonia: Treat underlying condition, wbc 11 7. Hypvolemia: Start normal saline 75 mL/h7.Discontinue IV fluids Disposition: Home in the next 1-2 days pending clinical progression.
[2024-03-02] MEDS: METOPROLOL SUCCINATE (ER) 50 MG TAB.ER.24H PO SCH (11:16)
[2024-03-02] MEDS: APIXABAN 5 MG TAB PO SCH (11:16)
--- NOTE | 2024-03-02 11:36 | P.CRDCN ---
History of Present Illness Consult date: 03/02/24 Consult reason: atrial fibrillation History of present illness: This is a 78-year-old male with past medical history of tracheobronchomalacia, acquired bronchiectasis, recurrent respiratory infections follows with Dr. Milian. We have been asked to evaluate the patient for atrial fibrillation. Patient presented to the hospital due to fever, shortness of breath, productive cough with yellow sputum. The patient does not follow with a cad developer. He states when he had cataract surgery about 2 months ago he was found to be in atrial fibrillation had follow-up with his PCP and at that time did not have atrial fibrillation. He denies having any history of coronary artery disease, PAD, no stroke history. He denies smoking and no alcohol abuse. Blood pressure 138/86, heart rate 117, pulse ox 95% on room air. Patient has been started on a heparin drip and IV antibiotics. EKG: Atrial atrial fibrillation with ventricular rate of 106, telemetry atrial fibrillation Chest x-ray: Stable right lower lobe infiltrate. COPD Echocardiogram reveals EF of 50 to 55%, mild mitral with moderate tricuspid regurgitation and mild pulmonary hypertension. Laboratory studies: WBC 11.1, hemoglobin 11.4. BUN 35 creatinine 0.95, potassium 4.5. Liver function test are slightly elevated. Influenza A, influenza B, RSV, COVID-19 not detected. Home cardiac medications: None Review Of Systems: At the time of my exam: CONSTITUTIONAL: Reports fever. HEENT: Denies blurred vision, vision changes, or eye pain. Denies hemoptysis CARDIOVASCULAR: Denies chest pain. Denies orthopnea. Denies PND. Denies palpitations RESPIRATORY: Reports shortness of breath. Reports cough with sputum production GASTROINTESTINAL: Denies abdominal pain. Denies nausea or vomiting. HEMATOLOGIC: Denies bleeding disorders. GENITOURINARY: Denies any blood in urine. SKIN: Denies puritis. Denies rash. Physical examination: Gen: This is a 78-year-old male in no acute distress VS: reviewed HEENT: Head is atraumatic, normocephalic. Pupils equal, round. Sclerae is ani cteric. NECK: Supple. No JVD. LUNGS: Clear to auscultation. No wheezes or rhonchi. No intercostal retractions. HEART: Regular rate and rhythm. No murmur. ABDOMEN: Soft No tenderness. EXTREMITIES: No pedal edema. No calf tenderness. NEUROLOGICAL: Patient is awake, alert and oriented x3. Assessment: Paroxysmal atrial fibrillation Right lower lobe pneumonia History of acquired bronchiectasis and tracheobronchomalacia Mild transaminitis Valvular heart disease with mild mitral regurgitation and moderate tricuspid regurgitation, mild pulmonary hypertension Plan: Discontinue heparin drip and start patient on Eliquis 5 mg twice daily Start patient on Toprol XL 50 mg daily Further recommendations to follow based upon clinical course Thank you kindly for this consultation. Nurse practitioner note has been reviewed, I agree with documented findings and plan of care. Patient was seen and examined. Past Medical History Past Medical History: No Reported History, Respiratory Disorder Additional Past Medical History / Comment(s): TRACHEAL BRONCHOMALACIA, HX RESP FAILURE. History of Any Multi-Drug Resistant Organisms: None Reported Past Surgical History: Appendectomy, Hernia Repair, Joint Replacement Additional Past Surgical History / Comment(s): appendectomy at 14 yrs old., Right inguinal hernia. left knee replacement aug 2023 Past Anesthesia/Blood Transfusion Reactions: No Reported Reaction, Motion Sickness Additional Past Anesthesia/Blood Transfusion Reaction / Comment(s): . Past Psychological History: Anxiety Additional Psychological History / Comment(s): SOME ANXIETY WITH SOB. Smoking Status: Never smoker Past Alcohol Use History: None Reported Past Drug Use History: None Reported - Past Family History Mother Family Medical History: Cancer Additional Family Medical History / Comment(s): COLON CANCER Medications and Allergies Home Medications Medication Instructions Recorded Confirmed Type Budesonide [Pulmicort] 0.5 mg INHALATION RT-BID 03/01/24 03/01/24 History Formoterol Fumarate [Perforomist] 20 mcg INHALATION RT-BID 03/01/24 03/01/24 History Allergies Allergy/AdvReac Type Severity Reaction Status Date / Time No Known Allergies Allergy Verified 03/01/24 15:20 Physical Exam Vitals: Vital Signs Temp Pulse Pulse Resp BP BP Pulse Ox 03/02/24 09:54 100 03/02/24 09:43 102 H 03/02/24 09:30 102 H 03/02/24 08:40 98.4 F 117 H 20 138/86 95 03/02/24 03:55 98.2 F 103 H 17 142/88 97 03/01/24 23:13 97.9 F 106 H 17 128/87 97 03/01/24 21:52 97.8 F 98 17 144/94 98 03/01/24 21:48 100 17 138/95 96 03/01/24 21:36 97.6 F 03/01/24 20:30 100 17 132/93 03/01/24 19:57 90 03/01/24 19:40 84 03/01/24 17:00 92 20 118/86 97 03/01/24 15:24 98.9 F 91 18 122/89 97 03/01/24 15:00 100 18 135/88 97 03/01/24 14:19 100.3 F H 03/01/24 13:08 95 03/01/24 12:57 97.7 F 131 H 18 128/82 96 Intake and Output 03/01/24 03/02/24 03/02/24 22:59 06:59 14:59 Intake Total 69.833 Balance 69.833 Intake: Intake, IV Titration 69.833 Amount Heparin Sod,Pork in 0.45% 69.833 NaCl 25,000 unit In 0.45 % NaCl 1 250ml.bag @ 13. 779 UNITS/KG/HR 10 mls/hr IV .Q24H [facility] Rx#: [id number] Other: Voiding Method Toilet Toilet # Voids 2 1 Weight 72.575 kg 80.5 kg Results 03/01/24 17:17 03/01/24 17:17 Cardiac Enzymes 03/01/24 03/01/24 03/01/24 Range/Units 14:04 14:04 17:17 AST 108 H 84 H (17-59) U/L Troponin I 0.022 (0.000-0.034) ng/mL Coagulation 03/01/24 03/02/24 Range/Units 17:17 00:15 APTT 23.5 38.8 H (22.0-30.0) sec CBC 03/01/24 03/01/24 Range/Units 14:04 17:17 WBC 13.4 H 11.1 H (3.8-10.6) k/uL RBC 4.01 L 3.54 L (4.30-5.90) m/uL Hgb 12.7 L 11.4 L (13.0-17.5) gm/dL Hct 40.3 35.4 L (39.0-53.0) % Plt Count 373 353 (150-450) k/uL Comprehensive Metabolic Panel 03/01/24 03/01/24 Range/Units 14:04 17:17 Sodium 137 137 (137-145) mmol/L Potassium 4.5 4.5 (3.5-5.1) mmol/L Chloride 106 108 H (98-107) mmol/L Carbon Dioxide 23 22 (22-30) mmol/L BUN 37 H 35 H (9-20) mg/dL Creatinine 0.95 0.95 (0.66-1.25) mg/dL Glucose 139 H 128 H (74-99) mg/dL Calcium 8.9 8.4 (8.4-10.2) mg/dL AST 108 H 84 H (17-59) U/L ALT 106 H 94 H (4-49) U/L Alkaline Phosphatase 225 H 206 H (38-126) U/L Total Protein 6.6 6.1 L (6.3-8.2) g/dL Albumin 3.3 L 3.0 L (3.5-5.0) g/dL Current Medications Generic Name Dose Route Start Last Admin Trade Name Freq PRN Reason Stop Dose Admin Albuterol/Ipratropium 3 ml 03/01/24 20:00 03/02/24 09:30 Ipratropium-Albuterol 3 Ml Neb INHALATION 3 ml RT-QID ARNAV Administration Azithromycin 500 mg 03/02/24 09:00 03/02/24 08:43 Azithromycin 500 Mg Tab PO 03/03/24 09:01 500 mg DAILY ARNAV Administration Protocol Budesonide 1 mg 03/02/24 08:00 03/02/24 09:29 Budesonide 1 Mg/2 Ml Nebu INHALATION 1 mg RT-BID ARNAV Administration Formoterol Fumarate 20 mcg 03/02/24 08:00 03/02/24 09:30 Formoterol Fumarate 20 Mcg/2 Ml Nebu INHALATION 20 mcg RT-BID ARNAV Administration Ceftriaxone Sodium 2 gm/ 50 mls @ 100 mls/hr 03/02/24 09:00 03/02/24 08:43 Sodium Chloride IVPB 03/05/24 09:29 100 mls/hr Q24HR ARNAV Administration Protocol Heparin Sodium/Sodium Chloride 250 mls @ 10 mls/hr 03/01/24 16:45 03/02/24 01:15 25,000 unit/ Sodium Chloride IV 15.779 units/kg/hr .Q24H ARNAV 11.452 mls/hr Titration Protocol 13.779 UNITS/KG/HR Miscellaneous Information 1 each 03/01/24 16:41 Pneumonia Protocol Utilized 1 Each Misc PO ONCE PRN Per Protocol Intake and Output 03/01/24 03/02/24 03/02/24 22:59 06:59 14:59 Intake Total 69.833 Balance 69.833 Intake: Intake, IV Titration 69.833 Amount Heparin Sod,Pork in 0.45% 69.833 NaCl 25,000 unit In 0.45 % NaCl 1 250ml.bag @ 13. 779 UNITS/KG/HR 10 mls/hr IV .Q24H [facility] Rx#: [id number] Other: Voiding Method Toilet Toilet # Voids 2 1 Weight 72.575 kg 80.5 kg 03/01/24 17:17 03/01/24 17:17
[2024-03-02 13:28] LABS: Basophils % (A) 0 %; Eosinophils % (A) 0 %; HCT 36.6 % (39.0-53.0); HGB 11.6 gm/dL (13.0-17.5); Lymphocytes % (A) 7 %; MCH 31.7 pg (25.0-35.0); MCHC 31.7 g/dL (31.0-37.0); MCV 99.8 fL (80.0-100.0); Mean Platelet Volume 7.6; Monocytes % (A) 7 %; Neutrophils # (A) 12.5 k/uL (1.3-7.7); Neutrophils % (A) 85 %; Platelet Count 389 k/uL (150-450); RBC 3.67 m/uL (4.30-5.90); RDW 13.5 % (11.5-15.5); WBC 14.6 k/uL (3.8-10.6)
[2024-03-02 13:31] LABS: ALT 84 U/L (4-49); AST 67 U/L (17-59); African American GFR (CKD) >90 (>60 ml/min/1.73 sqM); Albumin 3.1 g/dL (3.5-5.0); Alkaline Phosphatase 207 U/L (38-126); Anion Gap 5 mmol/L; Calcium 8.5 mg/dL (8.4-10.2); Carbon Dioxide 26 mmol/L (22-30); Chloride 106 mmol/L (98-107); Glucose 117 mg/dL (74-99); Non-African American GFR(CKD) 83 (>60 ml/min/1.73 sqM); Potassium 3.6 mmol/L (3.5-5.1); Sodium 137 mmol/L (137-145); Total Bilirubin 0.7 mg/dL (0.2-1.3); Total Protein 6.2 g/dL (6.3-8.2)
[2024-03-02 13:46] LABS: Blood Urea Nitrogen 23 mg/dL (9-20)
[2024-03-02] MEDS: MELATONIN 5 MG TABLET PO ONE (22:55)
[2024-03-02] MEDS: ACETAMINOPHEN TAB 325 MG TAB PO PRN (23:08)
[2024-03-03] MEDS: METOPROLOL SUCCINATE (ER) 50 MG TAB.ER.24H PO STA (00:32)
[2024-03-03 08:37] LABS: Basophils % (A) 0 %; Eosinophils # (A) 0.1 k/uL (0-0.7); Eosinophils % (A) 1 %; HCT 35.2 % (39.0-53.0); HGB 11.2 gm/dL (13.0-17.5); Lymphocytes # (A) 1.1 k/uL (1.0-4.8); Lymphocytes % (A) 6 %; MCHC 31.7 g/dL (31.0-37.0); Macrocytosis Slight; Mean Platelet Volume 7.4; Monocytes # (A) 1.3 k/uL (0-1.0); Monocytes % (A) 8 %; Neutrophils # (A) 14.9 k/uL (1.3-7.7); Neutrophils % (A) 85 %; Platelet Count 373 k/uL (150-450); RBC 3.49 m/uL (4.30-5.90); RDW 13.5 % (11.5-15.5); WBC 17.6 k/uL (3.8-10.6)
[2024-03-03 08:46] LABS: ALT 75 U/L (4-49); AST 53 U/L (17-59); African American GFR (CKD) >90 (>60 ml/min/1.73 sqM); Albumin 2.9 g/dL (3.5-5.0); Alkaline Phosphatase 223 U/L (38-126); Anion Gap 7 mmol/L; Blood Urea Nitrogen 19 mg/dL (9-20); Calcium 8.6 mg/dL (8.4-10.2); Carbon Dioxide 25 mmol/L (22-30); Chloride 105 mmol/L (98-107); Glucose 112 mg/dL (74-99); Non-African American GFR(CKD) 83 (>60 ml/min/1.73 sqM); Potassium 4.2 mmol/L (3.5-5.1); Sodium 137 mmol/L (137-145); Total Bilirubin 1.3 mg/dL (0.2-1.3)
--- NOTE | 2024-03-03 09:23 | P.PN ---
Subjective Progress Note Date: 03/03/24 Feels much better today, no chest pain no abdominal pain, Nausea or vomiting. Cough has significantly improved Currently shortness of breath is minimal. Heart rate better still tachycardic upon ambulation Objective - Vital Signs Vital signs: Vital Signs Temp 98.0 F 03/03/24 03:44 Pulse 84 03/03/24 08:36 Resp 16 03/03/24 03:44 BP 115/74 03/03/24 03:44 Pulse Ox 95 03/03/24 03:44 FiO2 Intake & Output 03/02/24 03/03/24 03/03/24 18:59 06:59 18:59 Intake Total 360 Output Total 400 Balance 360 -400 Weight 78.4 kg Intake: Oral 360 Output: Urine 400 Other: Voiding Method Toilet Urinal # Voids 2 1 - Exam Constitutional: No acute distress, conversant, pleasant Eyes: Anicteric sclerae, moist conjunctiva, no lid-lag, PERRLA ENMT: NC/AT,Oropharynx clear, no erythema, exudates Neck:Supple, FROM, no masses, or JVD, No carotid bruits; No thyromegaly Lungs: Clear to auscultation, Clear to percussion, Normal respiratory effort, no accessory muscle use Cardiovascular: Heart regular in rate and rhythm, No murmurs, gallops, or rubs no peripheral edema Abdominal: Soft Nontender, nom distended, no guarding, no rebound or rigidity, Normoactive bowel sounds No hepatomegaly, No splenomegaly, No palpable mass No abdominal wall hernia noted Skin: Normal temperature, tone, texture, turgor, No induration No subcutaneous nodules, No rash, lesions, No ulcers Extremities:No digital cyanosis No clubbing, Pedal pulses intact and symmetrical Radial pulses intact and symmetrical Normal gait and station, No calf tenderness Psychiatric: Alert and oriented to person, place and time, Appropriate affect Intact judgement Neuro: Muscles Strength 5/5 in all 4 extremities, Sensation to light touch grossly present throughout, Cranial nerves II-XII grossly intact. No focal sensory deficits - Labs CBC & Chem 7: 03/03/24 07:44 03/03/24 07:44 Labs: Abnormal Lab Results - Last 24 Hours (Table) 03/02/24 03/02/24 03/03/24 Range/Units 12:24 12:24 07:44 WBC 14.6 H 17.6 H (3.8-10.6) k/uL RBC 3.67 L 3.49 L (4.30-5.90) m/uL Hgb 11.6 L 11.2 L (13.0-17.5) gm/dL Hct 36.6 L 35.2 L (39.0-53.0) % MCV 101.0 H (80.0-100.0) fL Neutrophils # 12.5 H 14.9 H (1.3-7.7) k/uL Monocytes # 1.3 H (0-1.0) k/uL BUN 23 H (9-20) mg/dL Glucose 117 H (74-99) mg/dL AST 67 H (17-59) U/L ALT 84 H (4-49) U/L Alkaline Phosphatase 207 H (38-126) U/L Total Protein 6.2 L (6.3-8.2) g/dL Albumin 3.1 L (3.5-5.0) g/dL 03/03/24 Range/Units 07:44 WBC (3.8-10.6) k/uL RBC (4.30-5.90) m/uL Hgb (13.0-17.5) gm/dL Hct (39.0-53.0) % MCV (80.0-100.0) fL Neutrophils # (1.3-7.7) k/uL Monocytes # (0-1.0) k/uL BUN (9-20) mg/dL Glucose 112 H (74-99) mg/dL AST (17-59) U/L ALT 75 H (4-49) U/L Alkaline Phosphatase 223 H (38-126) U/L Total Protein 6.0 L (6.3-8.2) g/dL Albumin 2.9 L (3.5-5.0) g/dL Microbiology - Last 24 Hours (Table) 03/01/24 19:55 Gram Stain - Preliminary Sputum 03/01/24 14:15 Blood Culture - Preliminary Blood 03/01/24 14:15 Blood Culture - Preliminary Blood Assessment and Plan Plan: Assessment and plan: 1. Right-sided pneumonia unspecified organism: Received Rocephin and Zithromax,, continue current antibiotics current antibiotics, pulmonology consultation, Input appreciated. Oxygen bronchodilators as indicated.Wbc up to 17 2. New onset atrial fibrillation with RVR:New-onset atrial fibrillation with RVR: Obtained 2D echoUnremarkable., cardiology consultation, rate control medications as indicated. Heparin drip Discontinued, patientStarted on adequacy and metoprolol 3. COPD with mild exacerbation: Oxygen bronchodilators as indicated 4. History of tracheomalacia: Supportive care, flutter valve. 5. GERD without esophagitis: Continue PPI 6. SIRS without sepsis secondary to pneumonia: Treat underlying condition 7. Hypvolemia: Resolved Disposition: Home Hopefully tomorrow
--- NOTE | 2024-03-03 09:59 | P.PN ---
Subjective Progress Note Date: 03/03/24 Consult reason: atrial fibrillation History of present illness: This is a 78-year-old male with past medical history of tracheobronchomalacia, acquired bronchiectasis, recurrent respiratory infections follows with Dr. Milian. We have been asked to evaluate the patient for atrial fibrillation. Patient presented to the hospital due to fever, shortness of breath, productive cough with yellow sputum. 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 He states when he had cataract surgery about 2 months ago he was found to be in atrial fibrillation had follow-up with his PCP and at that time did not have atrial fibrillation. He denies having any history of coronary artery disease, PAD, no stroke history. He denies smoking and no alcohol abuse. Blood pressure 138/86, heart rate 117, pulse ox 95% on room air. Patient has been started on a heparin drip and IV antibiotics. EKG: Atrial atrial fibrillation with ventricular rate of 106, telemetry atrial fibrillation Chest x-ray: Stable right lower lobe infiltrate. COPD Echocardiogram reveals EF of 50 to 55%, mild mitral with moderate tricuspid regurgitation and mild pulmonary hypertension. Laboratory studies: WBC 11.1, hemoglobin 11.4. BUN 35 creatinine 0.95, potassium 4.5. Liver function test are slightly elevated. Influenza A, influenza B, RSV, COVID-19 not detected. Home cardiac medications: None 03/03 Patient is seen today in follow-up. He did receive extra dose of Toprol during the night for tachycardia, he remains in atrial fibrillation. He is running in the low 100s and goes up to 130-140 bpm with activity. Blood pressure 115/74, pulse ox 95% on room air. Repeat blood work reveals WBC 17.6, hemoglobin 11.2. Yesterday, patient was started on Toprol-XL 50 mg daily and Eliquis 5 mg twice daily. Patient is continued on IV antibiotics per pulmonary medicine. Sodium 137, potassium 4.2, BUN 19 creatinine 0.85. Patient denies chest pain. Shortness of breath is improving. Discussed option of cardioversion with the patient and he is agreeable to move forward with this which can be done either during this hospitalization or follow-up outpatient. Patient is agreeable to move forward during this hospital stay.. Physical examination: Gen: This is a 78-year-old male in no acute distress VS: reviewed HEENT: Head is atraumatic, normocephalic. Pupils equal, round. Sclerae is anicteric. NECK: Supple. + JVD. LUNGS: Diminished bilaterally. No intercostal retractions. HEART: Irregular rate and rhythm. No murmur. ABDOMEN: Soft No tenderness. EXTREMITIES: No pedal edema. No calf tenderness. NEUROLOGICAL: Patient is awake, alert and oriented x3. Assessment: New onset paroxysmal atrial fibrillation Right lower lobe pneumonia History of acquired bronchiectasis and tracheobronchomalacia Mild transaminitis Valvular heart disease with mild mitral regurgitation and moderate tricuspid regurgitation, mild pulmonary hypertension Plan: Continue patient on Eliquis 5 mg twice daily Continue patient on Toprol XL 50 mg daily Schedule patient for ANITHA and cardioversion tomorrow One dose of IV Lasix 40 mg now for elevated JVD Further recommendations to follow based upon clinical course Nurse practitioner note has been reviewed, I agree with documented findings and plan of care. Patient was seen and examined. Objective - Vital Signs Vital signs: Vital Signs Temp 98.0 F 03/03/24 03:44 Pulse 84 03/03/24 08:36 Resp 16 03/03/24 03:44 BP 115/74 03/03/24 03:44 Pulse Ox 95 03/03/24 03:44 FiO2 Intake & Output 03/02/24 03/03/24 03/03/24 18:59 06:59 18:59 Intake Total 360 Output Total 400 Balance 360 -400 Weight 78.4 kg Intake: Oral 360 Output: Urine 400 Other: Voiding Method Toilet Urinal # Voids 2 1 - Labs CBC & Chem 7: 03/03/24 07:44 03/03/24 07:44 Labs: Abnormal Lab Results - Last 24 Hours (Table) 03/02/24 03/02/24 03/03/24 Range/Units 12:24 12:24 07:44 WBC 14.6 H 17.6 H (3.8-10.6) k/uL RBC 3.67 L 3.49 L (4.30-5.90) m/uL Hgb 11.6 L 11.2 L (13.0-17.5) gm/dL Hct 36.6 L 35.2 L (39.0-53.0) % MCV 101.0 H (80.0-100.0) fL Neutrophils # 12.5 H 14.9 H (1.3-7.7) k/uL Monocytes # 1.3 H (0-1.0) k/uL BUN 23 H (9-20) mg/dL Glucose 117 H (74-99) mg/dL AST 67 H (17-59) U/L ALT 84 H (4-49) U/L Alkaline Phosphatase 207 H (38-126) U/L Total Protein 6.2 L (6.3-8.2) g/dL Albumin 3.1 L (3.5-5.0) g/dL 03/03/24 Range/Units 07:44 WBC (3.8-10.6) k/uL RBC (4.30-5.90) m/uL Hgb (13.0-17.5) gm/dL Hct (39.0-53.0) % MCV (80.0-100.0) fL Neutrophils # (1.3-7.7) k/uL Monocytes # (0-1.0) k/uL BUN (9-20) mg/dL Glucose 112 H (74-99) mg/dL AST (17-59) U/L ALT 75 H (4-49) U/L Alkaline Phosphatase 223 H (38-126) U/L Total Protein 6.0 L (6.3-8.2) g/dL Albumin 2.9 L (3.5-5.0) g/dL Microbiology - Last 24 Hours (Table) 03/01/24 19:55 Gram Stain - Preliminary Sputum 03/01/24 14:15 Blood Culture - Preliminary Blood 03/01/24 14:15 Blood Culture - Preliminary Blood
[2024-03-03] MEDS: FUROSEMIDE 10 MG/ML 4 ML VIAL IV STA (11:53)
--- NOTE | 2024-03-03 16:50 | P.PN ---
Subjective Progress Note Date: 03/03/24 Patient is a 78-year-old white male with past medical history significant for t racheobronchomalacia, acquired bronchiectasis and recurrent respiratory infections. Reportedly follows in the pulmonary office with Dr. Milian. He has underwent bronchoscopies in the past, previously diagnosed with tracheobronchomalacia. Patient presented emergency department yesterday afternoon complaining of 1 week of worsening shortness of breath with associated productive cough and yellow sputum. He also had a recorded fever of 100.8 F at home. Denies any chest pain, hemoptysis. Denies nausea, vomiting, diarrhea, abdominal pain. He was noted to be in A-fib RVR in the emergency department and started on a heparin infusion. Patient states that during previous cataract surgery done earlier in the year, he may have had atrial fibrillation, but never confirmed. Denies any heart palpitations, lightheadedness, syncopal events. He is currently lying in bed, on room air, in no acute distress. Chest x-ray showed a right lower lobe infiltrate concerning for pneumonia. CBC: WBC count 11.1, hemoglobin 11.4, hematocrit 435, platelets 353. BMP: Sodium 137, potassium 4.5, chloride 108, serum bicarb 22, BUN 35, creatinine 0.95, glucose 128. AST 84, ALT 94, ALP 206. Troponin 0.022. Negative for influenza, RSV, COVID. Tmax 100.3 F. Appears nontoxic. Vitals are stable. 03/03/2024, the patient is being seen for a follow-up. The patient is feeling better. Less congested and wheezy compared to yesterday. No fever or chills. No altered mentation. Sputum sample was sent and results are still pending for now. Still producing copious amount of purulent respiratory secretions. Remains on IV Rocephin. Remains on bronchodilators. Will add IV Solu-Medrol. Afebrile and hemodynamically stable. Objective - Vital Signs Vital signs: Vital Signs Temp 98.0 F 03/03/24 03:44 Pulse 100 03/03/24 08:40 Resp 18 03/03/24 08:40 BP 110/73 03/03/24 08:40 Pulse Ox 96 03/03/24 08:40 FiO2 Intake & Output 03/02/24 03/03/24 03/03/24 18:59 06:59 18:59 Intake Total 360 Output Total 400 Balance 360 -400 Weight 78.4 kg Intake: Oral 360 Output: Urine 400 Other: Voiding Method Toilet Urinal Urinal # Voids 2 1 - Exam GENERAL EXAM: Alert, 78-year-old white male, nontoxic appearance, comfortable in no apparent distress. HEAD: Normocephalic and atraumatic EYES: Normal reaction of pupils, equal size. NOSE: Clear with pink turbinates. THROAT: No erythema or exudates. NECK: No masses, no JVD. CHEST: No chest wall deformity. LUNGS: Equal air entry with scattered rhonchi. Occasional congested cough. Sputum basin at bedside has thick yellow/green sputum. On room air. No conversational dyspnea or accessory muscle use.. CVS: S1 and S2 normal with no audible murmur, irregular rhythm. No extra heart sounds ABDOMEN: No hepatosplenomegaly, active bowel sounds, no guarding or rigidity. SPINE: No scoliosis or deformity SKIN: No rashes CENTRAL NERVOUS SYSTEM: No focal deficits, tone is normal in all 4 extremities. EXTREMITIES: There is no peripheral edema, clubbing, or cyanosis. Peripheral pulses are intact. - Labs CBC & Chem 7: 03/03/24 07:44 03/03/24 07:44 Labs: Abnormal Lab Results - Last 24 Hours (Table) 03/02/24 03/02/24 03/03/24 Range/Units 12:24 12:24 07:44 WBC 14.6 H 17.6 H (3.8-10.6) k/uL RBC 3.67 L 3.49 L (4.30-5.90) m/uL Hgb 11.6 L 11.2 L (13.0-17.5) gm/dL Hct 36.6 L 35.2 L (39.0-53.0) % MCV 101.0 H (80.0-100.0) fL Neutrophils # 12.5 H 14.9 H (1.3-7.7) k/uL Monocytes # 1.3 H (0-1.0) k/uL BUN 23 H (9-20) mg/dL Glucose 117 H (74-99) mg/dL AST 67 H (17-59) U/L ALT 84 H (4-49) U/L Alkaline Phosphatase 207 H (38-126) U/L Total Protein 6.2 L (6.3-8.2) g/dL Albumin 3.1 L (3.5-5.0) g/dL 03/03/24 Range/Units 07:44 WBC (3.8-10.6) k/uL RBC (4.30-5.90) m/uL Hgb (13.0-17.5) gm/dL Hct (39.0-53.0) % MCV (80.0-100.0) fL Neutrophils # (1.3-7.7) k/uL Monocytes # (0-1.0) k/uL BUN (9-20) mg/dL Glucose 112 H (74-99) mg/dL AST (17-59) U/L ALT 75 H (4-49) U/L Alkaline Phosphatase 223 H (38-126) U/L Total Protein 6.0 L (6.3-8.2) g/dL Albumin 2.9 L (3.5-5.0) g/dL Microbiology - Last 24 Hours (Table) 03/01/24 19:55 Gram Stain - Preliminary Sputum 03/01/24 14:15 Blood Culture - Preliminary Blood 03/01/24 14:15 Blood Culture - Preliminary Blood Assessment and Plan Assessment: Acute exacerbation of COPD/bronchiectasis and the patient is known to have severe tracheobronchomalacia Suspected right lower lobe community-acquired pneumonia, Chest x-ray showing a right lower lobe infiltrate concerning for pneumonia. Acute dyspnea, secondary to above, improving Atrial fibrillation, currently with controlled ventricular response, currently inactive and stable History of acquired bronchiectatis History of tracheobronchomalacia Mild transaminitis Plan Awaiting sputum Gram stain and culture Oxygenation is stable and the patient is currently on room air oxygen Continue IV Rocephin Continue bronchodilators, budesonide and formoterol inhalationsg Blood cultures pending Viral panel negative for influenza, RSV, COVID. Echocardiogram is essentially within normal limits. The viral screen was negative. Legionella urine antigen was negative. His cardiac rhythm is atrial fibrillation which is essentially a chronic finding. He is on anticoagulation with Eliquis. Rate is controlled with Toprol 50 mg XL on a daily basis. Will add IV Solu-Medrol Reevaluate in a.m.
[2024-03-03] MEDS: methylPREDNISolone SOD SUCCI 125 MG/2 ML VIAL IV SCH (17:09)
[2024-03-04 05:45] LABS: Glucose,Whole Blood 170 mg/dL (70-110)
[2024-03-04 08:36] LABS: Basophils # (A) 0.1 k/uL (0-0.2); Basophils % (A) 1 %; Eosinophils # (A) 0.1 k/uL (0-0.7); Eosinophils % (A) 1 %; HCT 40.3 % (39.0-53.0); HGB 12.6 gm/dL (13.0-17.5); Lymphocytes # (A) 0.8 k/uL (1.0-4.8); Lymphocytes % (A) 5 %; MCH 31.5 pg (25.0-35.0); MCHC 31.3 g/dL (31.0-37.0); MCV 100.8 fL (80.0-100.0); Macrocytosis Slight; Mean Platelet Volume 8.3; Monocytes # (A) 0.5 k/uL (0-1.0); Monocytes % (A) 3 %; Neutrophils # (A) 15.5 k/uL (1.3-7.7); Neutrophils % (A) 91 %; Platelet Count 474 k/uL (150-450); RBC 3.99 m/uL (4.30-5.90); RDW 13.8 % (11.5-15.5)
[2024-03-04 08:55] LABS: ALT 69 U/L (4-49); AST 46 U/L (17-59); African American GFR (CKD) >90 (>60 ml/min/1.73 sqM); Albumin 3.4 g/dL (3.5-5.0); Alkaline Phosphatase 253 U/L (38-126); Anion Gap 10 mmol/L; Blood Urea Nitrogen 25 mg/dL (9-20); Carbon Dioxide 27 mmol/L (22-30); Chloride 101 mmol/L (98-107); Glucose 166 mg/dL (74-99); Non-African American GFR(CKD) 78 (>60 ml/min/1.73 sqM); Potassium 4.1 mmol/L (3.5-5.1); Sodium 138 mmol/L (137-145); Total Bilirubin 0.9 mg/dL (0.2-1.3)
[2024-03-04] MEDS: IV FLUID CONTINUATION 400 ML IV ONE (09:49)
[2024-03-04] MEDS: BENZOCAINE SPRAY 1 CAN TOPICAL ONE (09:51)
[2024-03-04] MEDS ORDERED: PROPOFOL 10 MG/ML 20 ML VIAL IV ONE (10:06)
[2024-03-04] MEDS ORDERED: LIDOCAINE 1% INJ 10MG/ML (20 ML MDV) ONE (10:06)
--- NOTE | 2024-03-04 11:09 | P.PN ---
Subjective Progress Note Date: 03/04/24 Feels better today, no chest pain no abdominal pain nausea vomiting no dizziness no shortness of breath. Cough has improved. Heart rate fluctuates. Objective - Vital Signs Vital signs: Vital Signs Temp 98.1 F 03/04/24 07:48 Pulse 78 03/04/24 10:57 Resp 16 03/04/24 10:57 BP 108/64 03/04/24 10:57 Pulse Ox 99 03/04/24 10:57 FiO2 Intake & Output 03/03/24 03/04/24 03/04/24 18:59 06:59 18:59 Intake Total 934 20 250 Output Total 1250 Balance -316 20 250 Intake: IV 20 250 Invasive Line 1 10 Invasive Line 2 10 Intake, IV Titration 100 Amount cefTRIAXone 2 gm In 100 Sodium Chloride 0.9% 50 ml @ 100 mls/hr IVPB Q24HR [facility] Rx#:[id number] Oral 834 Output: Urine 1250 Other: Voiding Method Urinal Toilet Toilet Urinal Urinal # Voids 2 1 - Exam Constitutional: No acute distress, conversant, pleasant Eyes: Anicteric sclerae, moist conjunctiva, no lid-lag, PERRLA ENMT: NC/AT,Oropharynx clear, no erythema, exudates Neck:Supple, FROM, no masses, or JVD, No carotid bruits; No thyromegaly Lungs: Clear to auscultation, Clear to percussion, Normal respiratory effort, no accessory muscle use Cardiovascular: Heart regular in rate and rhythm, No murmurs, gallops, or rubs no peripheral edema Abdominal: Soft Nontender, nom distended, no guarding, no rebound or rigidity, Normoactive bowel sounds No hepatomegaly, No splenomegaly, No palpable mass No abdominal wall hernia noted Skin: Normal temperature, tone, texture, turgor, No induration No subcutaneous nodules, No rash, lesions, No ulcers Extremities:No digital cyanosis No clubbing, Pedal pulses intact and symmetrical Radial pulses intact and symmetrical Normal gait and station, No joanne f tenderness Psychiatric: Alert and oriented to person, place and time, Appropriate affect Intact judgement Neuro: Muscles Strength 5/5 in all 4 extremities, Sensation to light touch grossly present throughout, Cranial nerves II-XII grossly intact. No focal sensory deficits - Labs CBC & Chem 7: 03/04/24 07:20 03/04/24 07:20 Labs: Abnormal Lab Results - Last 24 Hours (Table) 03/04/24 03/04/24 03/04/24 Range/Units 05:43 07:20 07:20 WBC 17.0 H (3.8-10.6) k/uL RBC 3.99 L (4.30-5.90) m/uL Hgb 12.6 L (13.0-17.5) gm/dL MCV 100.8 H (80.0-100.0) fL Plt Count 474 H (150-450) k/uL Neutrophils # 15.5 H (1.3-7.7) k/uL Lymphocytes # 0.8 L (1.0-4.8) k/uL BUN 25 H (9-20) mg/dL Glucose 166 H (74-99) mg/dL POC Glucose (mg/dL) 170 H (70-110) mg/dL ALT 69 H (4-49) U/L Alkaline Phosphatase 253 H (38-126) U/L Albumin 3.4 L (3.5-5.0) g/dL Microbiology - Last 24 Hours (Table) 03/01/24 14:15 Blood Culture - Preliminary Blood 03/01/24 14:15 Blood Culture - Preliminary Blood 03/01/24 19:55 Gram Stain - Preliminary Sputum Sputum Culture - Preliminary Assessment and Plan Plan: Assessment and plan: 1. Right-sided pneumonia unspecified organism: Received Rocephin and Zithromax,, continue current antibiotics current antibiotics, pulmonology consultation, Input appreciated. Oxygen bronchodilators as indicated.Wbc up to 17, On steroids. 2. New onset atrial fibrillation with RVR:New-onset atrial fibrillation with RVR: Obtained 2D echo Unremarkable., cardiology consultation, rate control medications as indicated. Heparin drip Discontinued, patient Started on Eliquis and metoprolol, Plan for ANITHA cardioversion today 3. COPD with mild exacerbation: Oxygen bronchodilators as indicated 4. History of tracheomalacia: Supportive care, flutter valve. 5. GERD without esophagitis: Continue PPI 6. SIRS without sepsis secondary to pneumonia: Treat underlying condition 7. Hypvolemia: Resolved Disposition: Home Hopefully tomorrow
[2024-03-04 12:02] LABS: Glucose,Whole Blood 164 mg/dL (70-110)
[2024-03-04] MEDS: FUROSEMIDE 10 MG/ML 4 ML VIAL IV STA (13:23)
--- NOTE | 2024-03-04 14:25 | P.PN ---
Subjective Progress Note Date: 03/04/24 Patient is a 78-year-old white male with past medical history significant for t racheobronchomalacia, acquired bronchiectasis and recurrent respiratory infections. Reportedly follows in the pulmonary office with Dr. Milian. He has underwent bronchoscopies in the past, previously diagnosed with tracheobronchomalacia. Patient presented emergency department yesterday afternoon complaining of 1 week of worsening shortness of breath with associated productive cough and yellow sputum. He also had a recorded fever of 100.8 F at home. Denies any chest pain, hemoptysis. Denies nausea, vomiting, diarrhea, abdominal pain. He was noted to be in A-fib RVR in the emergency department and started on a heparin infusion. Patient states that during previous cataract surgery done earlier in the year, he may have had atrial fibrillation, but never confirmed. Denies any heart palpitations, lightheadedness, syncopal events. He is currently lying in bed, on room air, in no acute distress. Chest x-ray showed a right lower lobe infiltrate concerning for pneumonia. CBC: WBC count 11.1, hemoglobin 11.4, hematocrit 435, platelets 353. BMP: Sodium 137, potassium 4.5, chloride 108, serum bicarb 22, BUN 35, creatinine 0.95, glucose 128. AST 84, ALT 94, ALP 206. Troponin 0.022. Negative for influenza, RSV, COVID. Tmax 100.3 F. Appears nontoxic. Vitals are stable. 03/03/2024, the patient is being seen for a follow-up. The patient is feeling better. Less congested and wheezy compared to yesterday. No fever or chills. No altered mentation. Sputum sample was sent and results are still pending for now. Still producing copious amount of purulent respiratory secretions. Remains on IV Rocephin. Remains on bronchodilators. Will add IV Solu-Medrol. Afebrile and hemodynamically stable. On 03/04/2024, the patient is doing well. The patient is stable. The patient still having some congestion and wheezing. Sputum Gram stain and culture has been negative. The patient remains on bronchodilators. The patient remains on steroids and the patient is currently on IV Solu-Medrol 60 mg for 6 hours. The patient is also on Prozac antibiotic coverage and currently is on Rocephin. Echocardiogram showed a preserved LV function with mild pulmonary hypertension. No nausea. No vomiting. No chest pain. No other significant events overnight. The patient did have a new onset atrial fibrillation with RVR. Echocardiogram was unremarkable. The IV heparin drip has been discontinued and the patient is currently on anticoagulation with Eliquis. The patient is going to undergo a ANITHA cardioversion today. Objective - Vital Signs Vital signs: Vital Signs Temp 98.1 F 03/04/24 07:48 Pulse 65 03/04/24 11:44 Resp 17 03/04/24 11:44 BP 103/64 03/04/24 11:44 Pulse Ox 97 03/04/24 11:44 FiO2 Intake & Output 03/03/24 03/04/24 03/04/24 18:59 06:59 18:59 Intake Total 934 20 Output Total 1250 Balance -316 20 Intake: IV 20 Invasive Line 1 10 Invasive Line 2 10 Intake, IV Titration 100 Amount cefTRIAXone 2 gm In 100 Sodium Chloride 0.9% 50 ml @ 100 mls/hr IVPB Q24HR [facility] Rx#:[id number] Oral 834 Output: Urine 1250 Other: Voiding Method Urinal Toilet Toilet Urinal Urinal # Voids 2 1 - Exam GENERAL EXAM: Alert, 78-year-old white male, nontoxic appearance, comfortable in no apparent distress. HEAD: Normocephalic and atraumatic EYES: Normal reaction of pupils, equal size. NOSE: Clear with pink turbinates. THROAT: No erythema or exudates. NECK: No masses, no JVD. CHEST: No chest wall deformity. LUNGS: Equal air entry with scattered rhonchi. Occasional congested cough. Sputum basin at bedside has thick yellow/green sputum. On room air. No conversational dyspnea or accessory muscle use.. CVS: S1 and S2 normal with no audible murmur, irregular rhythm. No extra heart sounds ABDOMEN: No hepatosplenomegaly, active bowel sounds, no guarding or rigidity. SPINE: No scoliosis or deformity SKIN: No rashes CENTRAL NERVOUS SYSTEM: No focal deficits, tone is normal in all 4 extremities. EXTREMITIES: There is no peripheral edema, clubbing, or cyanosis. Peripheral pulses are intact. - Labs CBC & Chem 7: 03/04/24 07:20 03/04/24 07:20 Labs: Abnormal Lab Results - Last 24 Hours (Table) 03/04/24 03/04/24 03/04/24 Range/Units 05:43 07:20 07:20 WBC 17.0 H (3.8-10.6) k/uL RBC 3.99 L (4.30-5.90) m/uL Hgb 12.6 L (13.0-17.5) gm/dL MCV 100.8 H (80.0-100.0) fL Plt Count 474 H (150-450) k/uL Neutrophils # 15.5 H (1.3-7.7) k/uL Lymphocytes # 0.8 L (1.0-4.8) k/uL BUN 25 H (9-20) mg/dL Glucose 166 H (74-99) mg/dL POC Glucose (mg/dL) 170 H (70-110) mg/dL ALT 69 H (4-49) U/L Alkaline Phosphatase 253 H (38-126) U/L Albumin 3.4 L (3.5-5.0) g/dL 03/04/24 Range/Units 11:58 WBC (3.8-10.6) k/uL RBC (4.30-5.90) m/uL Hgb (13.0-17.5) gm/dL MCV (80.0-100.0) fL Plt Count (150-450) k/uL Neutrophils # (1.3-7.7) k/uL Lymphocytes # (1.0-4.8) k/uL BUN (9-20) mg/dL Glucose (74-99) mg/dL POC Glucose (mg/dL) 164 H (70-110) mg/dL ALT (4-49) U/L Alkaline Phosphatase (38-126) U/L Albumin (3.5-5.0) g/dL Microbiology - Last 24 Hours (Table) 03/01/24 19:55 Gram Stain - Final Sputum Sputum Culture - Final 03/01/24 14:15 Blood Culture - Preliminary Blood 03/01/24 14:15 Blood Culture - Preliminary Blood Assessment and Plan Assessment: Acute exacerbation of COPD/bronchiectasis and the patient is known to have severe tracheobronchomalacia, improving Suspected right lower lobe community-acquired pneumonia, Chest x-ray showing a right lower lobe infiltrate concerning for pneumonia. Acute dyspnea, secondary to above, improving Atrial fibrillation, currently with controlled ventricular response, currently inactive and stable History of acquired bronchiectatis History of tracheobronchomalacia Mild transaminitis Plan Awaiting sputum Gram stain and culture, currently negative Oxygenation is stable and the patient is currently on room air oxygen Continue IV Rocephin Continue bronchodilators, budesonide and formoterol inhalations, twice daily Blood cultures pending ANITHA cardioversion today by cardiology Viral panel negative for influenza, RSV, COVID. Echocardiogram is essentially within normal limits. The viral screen was negative. Legionella urine antigen was negative. Continue Eliquis. Continue Toprol 50 mg XL on a daily basis. Continue IV Solu-Medrol Reevaluate in a.m.
--- NOTE | 2024-03-04 14:56 | P.PN ---
Subjective Progress Note Date: 03/04/24 Dr Negrete addendum New onset atrial fibrillation, likely due to, community-acquired pneumonia. S/p cardioversion. Post cardioversion ECG showed sinus rhythm with frequent PACs. Will keep patient on Toprol-XL 50 mg daily and Eliquis 5 mg daily. Resting heart rate around 70 bpm for cardioversion. He does have moderate mitral regurgitation with mild posterior mitral leaflet prolapse. Mitral regurgitation is competent of both primary and secondary MR. Recommend to continue Eliquis 5 mg without interruption Outpatient follow-up with Dr. Negrete Consult reason: atrial fibrillation History of present illness: This is a 78-year-old male with past medical history of tracheobronchomalacia, acquired bronchiectasis, recurrent respiratory infections follows with Dr. Milian. We have been asked to evaluate the patient for atrial fibrillation. Patient presented to the hospital due to fever, shortness of breath, productive cough with yellow sputum. 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 He states when he had cataract surgery about 2 months ago he was found to be in atrial fibrillation had follow-up with his PCP and at that time did not have atrial fibrillation. He denies having any history of coronary artery disease, PAD, no stroke history. He denies smoking and no alcohol abuse. Blood pressure 138/86, heart rate 117, pulse ox 95% on room air. Patient has been started on a heparin drip and IV antibiotics. EKG: Atrial atrial fibrillation with ventricular rate of 106, telemetry atrial fibrillation Chest x-ray: Stable right lower lobe infiltrate. COPD Echocardiogram reveals EF of 50 to 55%, mild mitral with moderate tricuspid regurgitation and mild pulmonary hypertension. Laboratory studies: WBC 11.1, hemoglobin 11.4. BUN 35 creatinine 0.95, potassium 4.5. Liver function test are slightly elevated. Influenza A, influenza B, RSV, COVID-19 not detected. Home cardiac medications: None 03/03 Patient is seen today in follow-up. He did receive extra dose of Toprol during the night for tachycardia, he remains in atrial fibrillation. He is running in the low 100s and goes up to 130-140 bpm with activity. Blood pressure 115/74, pulse ox 95% on room air. Repeat blood work reveals WBC 17.6, hemoglobin 11.2. Yesterday, patient was started on Toprol-XL 50 mg daily and Eliquis 5 mg twice daily. Patient is continued on IV antibiotics per pulmonary medicine. Sodium 137, potassium 4.2, BUN 19 creatinine 0.85. Patient denies chest pain. Shortness of breath is improving. Discussed option of cardioversion with the patient and he is agreeable to move forward with this which can be done either during this hospitalization or follow-up outpatient. Patient is agreeable to move forward during this hospital stay.. 03/04 Patient underwent ANITHA and cardioversion today and remains in a sinus rhythm. He has been started on Eliquis 5 mg twice daily. 1 dose of IV Lasix ordered for this morning. Blood pressure 103/64, heart rate 65, pulse ox 97% on room air. Repeat blood work reveals WBC 17, hemoglobin 12.6. BUN 25 creatinine 0.93, potassium 4.1. ALT 69 and alkaline phosphatase 253. Patient is continued on treatment for COPD exacerbation and suspected pneumonia. Physical examination: Gen: This is a 78-year-old male in no acute distress VS: reviewed HEENT: Head is atraumatic, normocephalic. Pupils equal, round. Sclerae is anicteric. NECK: Supple. + JVD. LUNGS: Diminished bilaterally. No intercostal retractions. HEART: Irregular rate and rhythm. No murmur. ABDOMEN: Soft No tenderness. EXTREMITIES: No pedal edema. No calf tenderness. NEUROLOGICAL: Patient is awake, alert and oriented x3. Assessment: New onset paroxysmal atrial fibrillation, status post ANITHA and cardioversion, now in sinus rhythm Right lower lobe pneumonia History of acquired bronchiectasis and tracheobronchomalacia Mild transaminitis Valvular heart disease with mild mitral regurgitation and moderate tricuspid regurgitation, mild pulmonary hypertension Plan: Continue patient on Eliquis 5 mg twice daily, Toprol XL 50 mg daily One dose of IV Lasix 40 mg Patient is cleared for discharge from cardiology. He will follow-up in the office with Dr. Negrete in 1 to 2 weeks. Nurse practitioner note has been reviewed, I agree with documented findings and plan of care. Patient was seen and examined. Objective - Vital Signs Vital signs: Vital Signs Temp 98.1 F 03/04/24 07:48 Pulse 65 03/04/24 11:44 Resp 17 03/04/24 11:44 BP 103/64 03/04/24 11:44 Pulse Ox 97 03/04/24 11:44 FiO2 Intake & Output 03/03/24 03/04/24 03/04/24 18:59 06:59 18:59 Intake Total 934 20 250 Output Total 1250 Balance -316 20 250 Intake: IV 20 250 Invasive Line 1 10 Invasive Line 2 10 Intake, IV Titration 100 Amount cefTRIAXone 2 gm In 100 Sodium Chloride 0.9% 50 ml @ 100 mls/hr IVPB Q24HR [facility] Rx#:[id number] Oral 834 Output: Urine 1250 Other: Voiding Method Urinal Toilet Toilet Urinal Urinal # Voids 2 1 - Labs CBC & Chem 7: 03/04/24 07:20 03/04/24 07:20 Labs: Abnormal Lab Results - Last 24 Hours (Table) 03/04/24 03/04/24 03/04/24 Range/Units 05:43 07:20 07:20 WBC 17.0 H (3.8-10.6) k/uL RBC 3.99 L (4.30-5.90) m/uL Hgb 12.6 L (13.0-17.5) gm/dL MCV 100.8 H (80.0-100.0) fL Plt Count 474 H (150-450) k/uL Neutrophils # 15.5 H (1.3-7.7) k/uL Lymphocytes # 0.8 L (1.0-4.8) k/uL BUN 25 H (9-20) mg/dL Glucose 166 H (74-99) mg/dL POC Glucose (mg/dL) 170 H (70-110) mg/dL ALT 69 H (4-49) U/L Alkaline Phosphatase 253 H (38-126) U/L Albumin 3.4 L (3.5-5.0) g/dL 03/04/24 Range/Units 11:58 WBC (3.8-10.6) k/uL RBC (4.30-5.90) m/uL Hgb (13.0-17.5) gm/dL MCV (80.0-100.0) fL Plt Count (150-450) k/uL Neutrophils # (1.3-7.7) k/uL Lymphocytes # (1.0-4.8) k/uL BUN (9-20) mg/dL Glucose (74-99) mg/dL POC Glucose (mg/dL) 164 H (70-110) mg/dL ALT (4-49) U/L Alkaline Phosphatase (38-126) U/L Albumin (3.5-5.0) g/dL Microbiology - Last 24 Hours (Table) 03/01/24 19:55 Gram Stain - Final Sputum Sputum Culture - Final 03/01/24 14:15 Blood Culture - Preliminary Blood 03/01/24 14:15 Blood Culture - Preliminary Blood
[2024-03-04 16:57] LABS: Glucose,Whole Blood 151 mg/dL (70-110)
[2024-03-04 20:10] LABS: Glucose,Whole Blood 174 mg/dL (70-110)
--- NOTE | 2024-03-04 23:28 | P.TEE ---
Date of Procedure: 03/04/24 Description of Procedure(s): Procedure performed: 1. Transesophageal Echocardiogram. 2. Synchronized Cardioversion. Indications: Persistent atrial fibrillation Consent: I have discussed the risks, benefits and alternative therapies for the above-mentioned procedure. The patient has indicated understanding and acceptance of the risks of the procedure. Signed consent was obtained and was placed in the paper chart. Moderate conscious sedation: Moderate conscious sedation was administered by anesthesia, see separate report. Procedural Steps: Timeout was performed in usual fashion. Patient's heart rate, blood pressure, oxygen saturation and ECG were monitored. After achieving appropriate moderate conscious sedation, ANITHA ANITHA probe was advanced without difficulty and without any immediate complications to the esophagus. ANITHA study was performed with color flow doppler, pulsed wave doppler and continuous wave doppler. Agitated saline bubbles were injected to assess for any intra-atrial shunt. The probe was then removed. SYNCHRONIZED CARDIOVERSION After making sure that there is no evidence of intracardiac thrombus, pacer pads were placed and secured on patients chest and back. Synchronized cardioversion was perfromed using [150] J. [1] attempt. Sinus rhythm was confirmed with a 12 lead EKG. Patient tolerated the procedure well. Patient was transferred to the post procedure area in stable and satisfactory condition. Complications: none Blood loss: none FINDINGS Left Atrium: Moderate left atrial dilatation. No evidence of mass or thrombus seen Left Atrial Appendage: No evidence of thrombus or mass seen in SOMMER Inter atrial septum: Intact inter-atrial septum. No evidence of atrial septal defect or patent foramen ovale on color doppler. Left Ventricle: Normal global LV size and systolic function Right Atrium: Normal overall RA size Right Ventricle: Normal global RV size and systolic function Aortic Valve: Structurally normal Trileaflet, no significant calcification. No significant stenosis or regurgitation on color doppler assessment. Mitral Valve: Moderate mitral regurgitation with competent of primary and secondary MR. Mild thickening and prolapse of posterior mitral leaflet with posteriorly directed mitral regurgitant jet. Pisa radius 0.6 cm, Aliasing velocity 44 cm/s, peak MR velocity 474 cm/s, MR VTI 133 cm. Regurgitant volume 27 mL per beat, ERO is 0.2 cm there was no significant systolic flow reversal in pulmonic vein Pulmonic Valve: No significant pulmonic valve stenosis or regurgitation. Normal-sized pulmonic artery Tricuspid Valve: Mild tricuspid regurgitation Ascending aorta, Aortic root and Aortic arch: Mild intimal thickening. Normal size aortic root and ascending aorta. No evidence of large atheroma or bulky calcification Descending aorta: Mild intimal thickening. No pericardial effusion CONCLUSION: Moderate left atrial dilatation Moderate primary and secondary mitral regurgitation. Mild prolapse of posterior mitral leaflet with posteriorly directed mitral jet No evidence of thrombus seen in left atrium or left atrial appendage No other significant valvular dysfunction Successful synchronized cardioversion. Postop ECG shows sinus rhythm with frequent PACs. Kermit Negrete MD, RPVI, FACC Thank you for allowing [facility] to participate in this patient's care. Feel free to reach out in case of any followup questions.
[2024-03-05 06:05] LABS: Glucose,Whole Blood 154 mg/dL (70-110)
[2024-03-05 09:20] VITALS: TEMP 98
[2024-03-05] MEDS: predniSONE 20 MG TAB PO SCH (10:39)
[2024-03-05 11:01] VITALS: BP 136/90
[2024-03-05 11:25] VITALS: RESP 16
[2024-03-05 11:34] VITALS: PULSE 84
--- NOTE | 2024-03-05 12:18 | P.PN ---
Subjective Progress Note Date: 03/05/24 Patient is a 78-year-old white male with past medical history significant for t racheobronchomalacia, acquired bronchiectasis and recurrent respiratory infections. Reportedly follows in the pulmonary office with Dr. Milian. He has underwent bronchoscopies in the past, previously diagnosed with tracheobronchomalacia. Patient presented emergency department yesterday afternoon complaining of 1 week of worsening shortness of breath with associated productive cough and yellow sputum. He also had a recorded fever of 100.8 F at home. Denies any chest pain, hemoptysis. Denies nausea, vomiting, diarrhea, abdominal pain. He was noted to be in A-fib RVR in the emergency department and started on a heparin infusion. Patient states that during previous cataract surgery done earlier in the year, he may have had atrial fibrillation, but never confirmed. Denies any heart palpitations, lightheadedness, syncopal events. He is currently lying in bed, on room air, in no acute distress. Chest x-ray showed a right lower lobe infiltrate concerning for pneumonia. CBC: WBC count 11.1, hemoglobin 11.4, hematocrit 435, platelets 353. BMP: Sodium 137, potassium 4.5, chloride 108, serum bicarb 22, BUN 35, creatinine 0.95, glucose 128. AST 84, ALT 94, ALP 206. Troponin 0.022. Negative for influenza, RSV, COVID. Tmax 100.3 F. Appears nontoxic. Vitals are stable. 03/03/2024, the patient is being seen for a follow-up. The patient is feeling better. Less congested and wheezy compared to yesterday. No fever or chills. No altered mentation. Sputum sample was sent and results are still pending for now. Still producing copious amount of purulent respiratory secretions. Remains on IV Rocephin. Remains on bronchodilators. Will add IV Solu-Medrol. Afebrile and hemodynamically stable. On 03/04/2024, the patient is doing well. The patient is stable. The patient still having some congestion and wheezing. Sputum Gram stain and culture has been negative. The patient remains on bronchodilators. The patient remains on steroids and the patient is currently on IV Solu-Medrol 60 mg for 6 hours. The patient is also on Prozac antibiotic coverage and currently is on Rocephin. Echocardiogram showed a preserved LV function with mild pulmonary hypertension. No nausea. No vomiting. No chest pain. No other significant events overnight. The patient did have a new onset atrial fibrillation with RVR. Echocardiogram was unremarkable. The IV heparin drip has been discontinued and the patient is currently on anticoagulation with Eliquis. The patient is going to undergo a ANITHA cardioversion today. On 03/05/2024, the patient's postcardioversion. Cardiac rhythm is sinus and the patient is having frequent PVCs and PACs. Less shortness of breath. No sign ificant cough or congestion and wheezing on today's evaluation the patient remains on room air oxygen. Remains on IV Rocephin. Remains on a combination of Perforomist and Pulmicort twice a day. Labs from today are still pending. He has no specific complaints. No chest pain. No palpitations. Objective - Vital Signs Vital signs: Vital Signs Temp 98 F 03/05/24 08:00 Pulse 84 03/05/24 11:33 Resp 16 03/05/24 11:33 BP 136/90 03/05/24 11:00 Pulse Ox 97 03/05/24 11:00 FiO2 Intake & Output 03/04/24 03/05/24 03/05/24 18:59 06:59 18:59 Intake Total 100 358 Output Total 500 300 575 Balance -400 -300 -217 Weight 73.7 kg Intake: Oral 100 358 Output: Urine 500 300 575 Other: Voiding Method Toilet Toilet Toilet Urinal Urinal Urinal # Voids 1 1 - Exam GENERAL EXAM: Alert, 78-year-old white male, nontoxic appearance, comfortable in no apparent distress. HEAD: Normocephalic and atraumatic EYES: Normal reaction of pupils, equal size. NOSE: Clear with pink turbinates. THROAT: No erythema or exudates. NECK: No masses, no JVD. CHEST: No chest wall deformity. LUNGS: Equal air entry with scattered rhonchi. Occasional congested cough. Sputum basin at bedside has thick yellow/green sputum. On room air. No con versational dyspnea or accessory muscle use.. CVS: S1 and S2 normal with no audible murmur, irregular rhythm. No extra heart sounds ABDOMEN: No hepatosplenomegaly, active bowel sounds, no guarding or rigidity. SPINE: No scoliosis or deformity SKIN: No rashes CENTRAL NERVOUS SYSTEM: No focal deficits, tone is normal in all 4 extremities. EXTREMITIES: There is no peripheral edema, clubbing, or cyanosis. Peripheral pulses are intact. - Labs CBC & Chem 7: 03/04/24 07:20 03/04/24 07:20 Labs: Abnormal Lab Results - Last 24 Hours (Table) 03/04/24 03/04/24 03/05/24 Range/Units 16:55 20:08 06:03 POC Glucose (mg/dL) 151 H 174 H 154 H (70-110) mg/dL Microbiology - Last 24 Hours (Table) 03/01/24 14:15 Blood Culture - Preliminary Blood 03/01/24 14:15 Blood Culture - Preliminary Blood 03/01/24 19:55 Gram Stain - Final Sputum Sputum Culture - Final Assessment and Plan Assessment: Acute exacerbation of COPD/bronchiectasis and the patient is known to have severe tracheobronchomalacia, clinically improved Suspected right lower lobe community-acquired pneumonia, Chest x-ray showing a right lower lobe infiltrate concerning for pneumonia. Acute dyspnea, secondary to above, proved Atrial fibrillation, currently with controlled ventricular response, post ANITHA cardioversion and the patient is currently normal sinus rhythm with frequent PACs and PVCs History of acquired bronchiectatis History of tracheobronchomalacia Mild transaminitis Plan Awaiting sputum Gram stain and culture, currently negative Oxygenation is stable and the patient is currently on room air oxygen The patient can be switched to oral Augmentin to complete a 7-day course Continue bronchodilators, budesonide and formoterol inhalations, twice daily. On outpatient basis Blood cultures pending ANITHA cardioversion today by cardiology Viral panel negative for influenza, RSV, COVID. Echocardiogram is essentially within normal limits. The viral screen was negative. Legionella urine antigen was negative. Continue Eliquis. Continue Toprol 50 mg XL on a daily basis. Prednisone burst taper Possible discharge home today.
--- NOTE | 2024-03-05 13:40 | P.DS ---
Providers Date of admission: 03/01/24 16:43 Expected date of discharge: 03/05/24 Attending physician: Daryl Ireland MD Consults: 03/01/24 16:41 Consult Physician Routine Consulting Provider: [facility] Consult Reason/Comments: Atrial fibrillation Do you want consulting provider notified?: Yes 03/01/24 16:42 Consult Physician Routine Consulting Provider: Alva Milian Consult Reason/Comments: Pneumonia Do you want consulting provider notified?: Yes Primary care physician: Freddy Edwards MD Hospital Course: Sepsis secondary to community Acquired Pneumonia Paroxysmal atrial fibrillation with RVR, new onset COPD with mild exacerbation History of tracheomalacia and bronchiectasis GERD without esophagitis Hospital course 78-year-old male with medical history of COPD, tracheomalacia and bronchiectasis, GERD presented for evaluation of dyspnea. Patient was found to have right-sided pneumonia on chest x-ray as well as new onset atrial fibrillation with RVR on EKG. During hospitalization he was treated with antibiotics, bronchodilators, steroids with pulmonology and cardiology consultation facilitating management. Patient underwent ANITHA with cardioversion and successful return of sinus rhythm. Echocardiogram demonstrated appropriate ejection fraction with no wall motion abnormality. Patient remained on room air and his bronchospastic airways improved by the date of discharge. He was cleared by pulmonology and cardiology to go home with outpatient follow-up. Patient will complete a total 5-day course of steroids with prednisone. He will also complete a total 7-day course of antibiotics, this was extended from 5-day course for community-acquired pneumonia due to history of severe underlying lung disease including COPD and tracheomalacia with history of bronchiectasis. I spent 38 minutes coordinating this discharge Gen: In NAD, non-toxic HEENT: normocephalic, atraumatic, hearing acuity is intant, mucous membranes moist CVS: perfusing all extremities well, no pitting edema, Respiratory: symmetric chest expansion, no accessory muscle use, GI: soft, NTTP, ND, : no suprapubic tenderness, no CVA tenderness MSK/Derm: no rashes, cyanosis Neuro: CN II-XII intact, no motor weakness, Psych: cooperative, euthymic mood, judgment and insight is intact Plan - Discharge Summary Discharge Rx Participant: No New Discharge Prescriptions: New predniSONE [Deltasone] 40 mg PO DAILY #2 tab Apixaban [Eliquis] 5 mg PO BID #60 tab Acetaminophen Tab [Tylenol] 650 mg PO Q6HR PRN tab PRN Reason: Fever And/ Or Pain Cefdinir 300 mg PO Q12HR #6 cap Metoprolol Succinate (ER) [Toprol XL] 50 mg PO DAILY #30 tab Continue Budesonide [Pulmicort] 0.5 mg INHALATION RT-BID Formoterol Fumarate [Perforomist] 20 mcg INHALATION RT-BID Discharge Medication List Budesonide [Pulmicort] 0.5 mg INHALATION RT-BID 03/01/24 [History] Formoterol Fumarate [Perforomist] 20 mcg INHALATION RT-BID 03/01/24 [History] Acetaminophen Tab [Tylenol] 650 mg PO Q6HR PRN tab 03/05/24 [Rx] Apixaban [Eliquis] 5 mg PO BID #60 tab 03/05/24 [Rx] Cefdinir 300 mg PO Q12HR #6 cap 03/05/24 [Rx] Metoprolol Succinate (ER) [Toprol XL] 50 mg PO DAILY #30 tab 03/05/24 [Rx] predniSONE [Deltasone] 40 mg PO DAILY #2 tab 03/05/24 [Rx] Follow up Appointment(s)/Referral(s): Kermit Negrete MD [Medical Doctor] - 1 Week (CALL AND MAKE DYLAN! (HEART DOCTOR)) Freddy Edwards MD [Primary Care Provider] - 1-2 days (CALL AND MAKE DYLAN! (PCP)) Alva Milian MD [STAFF PHYSICIAN] - 1 Week (CALL AND MAKE DYLAN! (LUNG DOCTOR)) Patient Instructions/Handouts: A-fib (Atrial Fibrillation) (DC), Community Acquired Pneumonia (DC) Discharge Disposition: HOME SELF-CARE
== END 2024-03-05 12:54 | disposition home or self-care (01) | DRG 871 ==
LOC: EC 12:56 → 3SCARD 16:43
PROVIDERS: ADMIT Student in an Organized Health Care Education/Training Program; ATTEND Student in an Organized Health Care Education/Training Program
PROC: B246ZZ4 Ultrasonography of Right and Left Heart, Transesophageal (ICD-10-PCS; principal; 2024-03-02)
PROC: 5A2204Z Restoration of Cardiac Rhythm, Single (ICD-10-PCS; 2024-03-04)
DX: A41.9 Sepsis, unspecified organism (principal); J18.9 Pneumonia, unspecified organism; J44.0 Chronic obstructive pulmonary disease with (acute) lower respiratory infection; J44.1 Chronic obstructive pulmonary disease with (acute) exacerbation; R74.01 Elevation of levels of liver transaminase levels; R65.10 Systemic inflammatory response syndrome (SIRS) of non-infectious origin without acute organ dysfunction; E87.6 Hypokalemia; I27.20 Pulmonary hypertension, unspecified; I48.0 Paroxysmal atrial fibrillation; Z79.01 Long term (current) use of anticoagulants; K21.9 Gastro-esophageal reflux disease without esophagitis; F41.9 Anxiety disorder, unspecified; I08.1 Rheumatic disorders of both mitral and tricuspid valves; I49.3 Ventricular premature depolarization; Z79.899 Other long term (current) drug therapy; Z96.652 Presence of left artificial knee joint; Z87.19 Personal history of other diseases of the digestive system
CPT/HCPCS: 36415; 71045; 71046; 80053; 83605; 84484; 85025; 85730; 87040; 87070; 87205; 87449; 87636; 92960; 93005; 93306; 93312; 93320; 93325; 94640; 94667; 96365; 96366; 96367; 96368; 99285

== ENCOUNTER 2024-04-02 15:55 | Inpatient (IN) | payer MEDICARE ==
[2024-04-02 16:23] LABS: Basophils # (A) 0.1 k/uL (0-0.2); Basophils % (A) 1 %; Eosinophils # (A) 0.5 k/uL (0-0.7); Eosinophils % (A) 7 %; HCT 38.4 % (39.0-53.0); HGB 12.5 gm/dL (13.0-17.5); Lymphocytes % (A) 24 %; MCH 31.9 pg (25.0-35.0); MCHC 32.5 g/dL (31.0-37.0); Mean Platelet Volume 6.7; Monocytes # (A) 0.9 k/uL (0-1.0); Monocytes % (A) 11 %; Neutrophils # (A) 4.5 k/uL (1.3-7.7); Neutrophils % (A) 56 %; Platelet Count 360 k/uL (150-450); RBC 3.92 m/uL (4.30-5.90)
[2024-04-02 16:35] LABS: INR 0.9 (<1.2); Partial Thromboplastin Time 23.7 sec (22.0-30.0); Prothrombin Time 10.1 sec (10.0-12.5)
[2024-04-02 16:36] LABS: ALT 19 U/L (4-49); AST 34 U/L (17-59); African American GFR (CKD) >90 (>60 ml/min/1.73 sqM); Albumin 3.8 g/dL (3.5-5.0); Alkaline Phosphatase 98 U/L (38-126); Anion Gap 6 mmol/L; Blood Urea Nitrogen 26 mg/dL (9-20); Carbon Dioxide 24 mmol/L (22-30); Chloride 108 mmol/L (98-107); Creatine Kinase 47 U/L (55-170); Glucose 83 mg/dL (74-99); Non-African American GFR(CKD) 83 (>60 ml/min/1.73 sqM); Potassium 4.2 mmol/L (3.5-5.1); Sodium 138 mmol/L (137-145); Total Bilirubin 0.5 mg/dL (0.2-1.3); Total Protein 6.8 g/dL (6.3-8.2)
--- NOTE | 2024-04-02 16:42 | CT ---
EXAMINATION TYPE: CODE STROKE: CT brain wo contr DATE OF EXAM: 04/02/2024 COMPARISON: None HISTORY: 78-year-old male with neurologic deficit, acute, stroke suspected, cva TECHNIQUE: Examination was done in axial plane without intravenous contrast. Coronal and sagittal r econstructions performed. CT DLP: 1244.8 mGycm Automated exposure control for dose reduction was used. FINDINGS: There is no evidence of acute intracranial hemorrhage, acute ischemic changes, mass, mass-effect, or extra-axial fluid collection. There is no effacement of cerebral sulci or basal subarachnoid cister ns. There is no hydrocephalus. There is no midline shift. Rai-white matter distinction is preserv ed. Moderate patchy white matter hypodensities in both cerebral hemispheres. Moderate to severe mucosal thickening throughout the ethmoid air cells. Moderate mucosal thickening l eft sphenoid sinus and bilateral maxillary sinus floors. Leftward nasal septal deviation. Orbits and globes are intact. Maxillary sinuses remain pneumatized. IMPRESSION: 1. Moderate burden of chronic small vessel ischemic disease. 2. No acute intracranial abnormality seen. 3. Moderate to severe chronic ethmoid sinus disease.
--- NOTE | 2024-04-02 16:46 | CT ---
EXAMINATION TYPE: CT angio head neck DATE OF EXAM: 04/02/2024 COMPARISON: Brain same day HISTORY: 78-year-old male cva TECHNIQUE: Contiguous axial scanning of the head and neck performed with IV Contrast, patient injecte d with 65cc mL of Isovue 370. Coronal/sagittal reconstructions performed. 3-D reconstructions generat ed on a dedicated independent workstation. CT DLP: 431.5 mGycm Automated exposure control for dose reduction was used. FINDINGS: Neck: Calcified granuloma visualized left upper lung. Conventional branching anatomy. Slightly dominant left vertebral artery. Otherwise, both vertebral arteries are patent throughout the course. The bilateral common carotid arteries are patent. There is mild atherosclerotic calcification at the bilateral carotid bulbs. This results in mild, 20% narrowing in the proximal right ICA. NASCET criteria is utilized. Otherwise , the remainder of the bilateral internal carotid arteries are widely patent. Head: Left vertebral artery slightly more dominant. Otherwise, both vertebral and basilar arteries are cavanaugh nt as is the remainder of the posterior circulation. There is anatomic variation with persistent feta l origin left VEST PRESSER. The bilateral internal carotid arteries are patent. Minimal atherosclerotic calcification clinoid and supraclinoid internal carotid arteries on both sides. No significant ICA narrowing. Remainder of the anterior circulation is patent. No aneurysmal change is seen. IMPRESSION: 1. NECK: MILD ATHEROSCLEROTIC CHANGE AT THE CAROTID BIFURCATIONS. THIS RESULTS IN MILD, 20% NARROWING PROXIMAL RIGHT ICA. SLIGHTLY MORE DOMINANT LEFT VERTEBRAL ARTERY, AN ANATOMIC VARIATION. 2. HEAD: NO LARGE VESSEL INTRACRANIAL ARTERIAL OCCLUSION, SIGNIFICANT STENOSIS, OR ANEURYSMAL CHANGE IS SEEN. ANATOMIC VARIATION WITH PERSISTENT ORIGIN LEFT VEST PRESSER.
[2024-04-02] MEDS: niCARdipine 20 MG in SODIUM CHLORIDE 0.9% 192 ML IV ONE (16:51)
--- NOTE | 2024-04-02 17:16 | ED ---
General Adult HPI - General Chief complaint: Neuro Symptoms/Deficit Stated complaint: poss stroke Time Seen by Provider: 04/02/24 16:05 Source: EMS Mode of arrival: EMS Limitations: no limitations - History of Present Illness Initial comments: 78-year-old male with past medical history of A-fib not on any anticoagulation presents emergency department with left arm and left leg weakness. Patient was working on a car when he had sudden weakness in his left arm and fell to his side. He also had weakness in his lower leg and could not walk. Symptom onset was 3:10 PM. EMS was called shortly after. Patient denies history of stroke. Does have a history of A-fib. He was supposed to be on Eliquis however his insurance was not covering this medication therefore the patient never got it from the pharmacy. He states he has been awaiting a appointment with Dr. Lin to talk to him about going on Coumadin but in the meantime has been off of anticoagulation. Patient does have appreciable drift in the left arm and left leg. 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 No speech changes. Denies any trauma. No other alleviating, precipitating or modifying factors - Related Data Home Medications Medication Instructions Recorded Confirmed No Known Home Medications 04/02/24 04/02/24 Allergies Allergy/AdvReac Type Severity Reaction Status Date / Time No Known Allergies Allergy Verified 04/02/24 17:05 Review of Systems ROS Statement: Those systems with pertinent positive or pertinent negative responses have been documented in the HPI. ROS Other: All systems not noted in ROS Statement are negative. Past Medical History Past Medical History: No Reported History, Respiratory Disorder Additional Past Medical History / Comment(s): TRACHEAL BRONCHOMALACIA, HX RESP FAILURE. History of Any Multi-Drug Resistant Organisms: None Reported Past Surgical History: Appendectomy, Hernia Repair, Joint Replacement Additional Past Surgical History / Comment(s): appendectomy at 14 yrs old., Right inguinal hernia. left knee replacement aug 2023 Past Anesthesia/Blood Transfusion Reactions: No Reported Reaction, Motion Sickness Additional Past Anesthesia/Blood Transfusion Reaction / Comment(s): . Past Psychological History: Anxiety Smoking Status: Never smoker Past Alcohol Use History: None Reported Past Drug Use History: None Reported - Past Family History Mother Family Medical History: Cancer Additional Family Medical History / Comment(s): COLON CANCER General Exam Limitations: no limitations General appearance: alert Head exam: Present: atraumatic, normocephalic, normal inspection Eye exam: Present: normal appearance, PERRL, EOMI. Absent: scleral icterus, conjunctival injection, periorbital swelling ENT exam: Present: normal exam, mucous membranes moist Neck exam: Present: normal inspection. Absent: tenderness, meningismus, lymphadenopathy Respiratory exam: Present: normal lung sounds bilaterally. Absent: respiratory distress, wheezes, rales, rhonchi, stridor Cardiovascular Exam: Present: regular rate, irregular rhythm, normal heart sounds. Absent: systolic murmur, diastolic murmur, rubs, gallop, clicks GI/Abdominal exam: Present: soft, normal bowel sounds. Absent: distended, tenderness, guarding, rebound, rigid Extremities exam: Present: other (equal grain merchandising manager strength. 3/5 strength left deltoid. unable to maintain 90 degrees of flexion or abduction. slight decrese in strength of hip flexors on left) Course Vital Signs 04/02/24 04/02/24 04/02/24 16:01 16:16 16:23 Temperature 98 F Pulse Rate 70 67 78 Respiratory 18 17 18 Rate Blood Pressure 214/120 191/127 191/127 O2 Sat by Pulse 99 100 100 Oximetry 04/02/24 04/02/24 04/02/24 16:31 16:46 17:01 Temperature Pulse Rate 77 78 72 Respiratory 17 17 18 Rate Blood Pressure 183/101 190/122 165/94 O2 Sat by Pulse 100 99 99 Oximetry 04/02/24 04/02/24 04/02/24 17:16 19:22 22:10 Temperature Pulse Rate 73 64 65 Respiratory 17 18 17 Rate Blood Pressure 147/83 175/106 149/93 O2 Sat by Pulse 99 96 98 Oximetry - Reevaluation(s) Reevaluation #1: Spoke with Dr. Koenig. Will await CT 04/02/24 1615 Reevaluation #2: Spoke with CT as the scan is still not read by the radiologist 04/02/24 1630 Reevaluation #3: Dr. Koenig calls back and states that the scans appear negative. May offer TNKase based on risk versus benefits 04/02/24 1635 Reevaluation #4: Extensive [id number] session with family regarding TNKase. Patient does ultimately refuse the medication due to risk 04/02/24 1655 Reevaluation #5: Spoke with Dr. Styles. Patient will be administered 300 mg of Plavix and 325 mg of aspirin at this time. He will then be placed on 75 mg of Plavix daily and 81 mg of aspirin daily. Anticoagulation will be discussed later for his afib. Blood pressure goal is 210/100. Patient will be permissively hypertensive. He was originally started on Cardene as we thought that he was going to get TNKase however this is shut off after the patient decided that he did not want this medication 04/02/24 17:20 Medical Decision Making - Medical Decision Making Was pt. sent in by a medical professional or institution (, PA, PAINTER FOREMAN, urgent care, hospital, or group home...) When possible be specific @ -No Did you speak to anyone other than the patient for history (EMS, parent, family, police, friend...)? What history was obtained from this source @ -Spoke with EMS and family for history Did you review nursing and triage notes (agree or disagree)? Why? @ -I reviewed and agree with nursing and triage notes Were old charts reviewed (outside hosp., previous admission, EMS record, old EKG, old radiological studies, urgent care reports/EKG's, group home records)? Report findings @ -I reviewed patient's discharge summary from March 01 where he was hospitalized for pneumonia and new onset A-fib. He was discharged home on Eliquis Differential Diagnosis (chest pain, altered mental status, abdominal pain women, abdominal pain men, vaginal bleeding, weakness, fever, dyspnea, syncope, headache, dizziness, GI bleed, back pain, seizure, CVA, palpatations, mental health, musculoskeletal)? @ -Differential CVA Ischemic stroke, hemorrhagic stroke, brain tumor, atypical migraine, Wernicke's encephalopathy, seizure, multiple sclerosis, meningitis, encephalitis, hypoglycemia, Guillain-Montoya, electrolytes disturbance, myasthenia gravis.... This is not meant to be an all-inclusive list EKG interpreted by me (3pts min.). @ - First EKG done at 1612 demonstrates baseline artifact. Suspicious for A-fib with a rate of 76. AK interval 160. QRS 102. QTc of 427 Second EKG done at 1628 does demonstrate A-fib with rate of 79. QRS 97. QTc of 435. No acute ST segment elevations or depressions. Inverted T wave in lead III X-rays interpreted by me (1pt min.). @ -Yes and demonstrates no acute process CT interpreted by me (1pt min.). @ -Yes and demonstrates no acute process U/S interpreted by me (1pt. min.). @ -None done What testing was considered but not performed or refused? (CT, X-rays, U/S, labs)? Why? @ -None What meds were considered but not given or refused? Why? @ -None Did you discuss the management of the patient with other professionals (professionals i.e. DrRosemary, PA, PAINTER FOREMAN, lab, RT, psych nurse, social media senior associate, gun profiler, teacher, casino surveillance officer, case monitor)? Give summary @ -Discussed case with Dr. Koenig the neurointensivist, Dr. Styles the neurologist and Dr. Ireland who will admit the patient Was smoking cessation discussed for >3mins.? @ -No Was critical care preformed (if so, how long)? @ -Yes, 35 minutes for code stroke activation Were there social determinants of health that impacted care today? How? (Homelessness, low income, unemployed, alcoholism, drug addiction, transportation, low edu. Level, literacy, decrease access to med. care, prison, rehab)? @ -No Was there de-escalation of care discussed even if they declined (Discuss DNR or withdrawal of care, Hospice)? DNR status @ -No What co-morbidities impacted this encounter? (DM, HTN, Smoking, COPD, CAD, Cancer, CVA, ARF, Chemo, Hep., AIDS, mental health diagnosis, sleep apnea, morbid obesity)? @ -A-fib, not on anticoagulation Was patient admitted / discharged? Hospital course, mention meds given and route, prescriptions, significant lab abnormalities, going to OR and other pertinent info. @ -Upon arrival patient seen and evaluated in room 5. Thorough history and physical exam was performed. Code stroke was activated. Patient has an NIH of 3. Onset of timing was 3:10 PM. He is sent over for CT of his head. CT is negative. Dr. Roy does want to offer the patient TNKase. The risks and benefits are extensively counseled. Patient refused TNKase due to risks. He does have some self resolving symptoms. Cardene had administered in preparation for TNKase however when patient refused the medication this is shut off. Patient is allowed to be permissively hypertensive. Goals of blood pressure will be less than 210/100. Spoke [address] Styles who recommends 300 of Plavix and a full dose aspirin today as well as 75 of Plavix and 81 mg of aspirin tomorrow Undiagnosed new problem with uncertain prognosis? @ -No Drug Therapy requiring intensive monitoring for toxicity (Heparin, Nitro, Insulin, Cardizem)? @ -No Were any procedures done? @ -No Diagnosis/symptom? @ -Acute right arm and right leg weakness, suspected CVA, accelerated h ypertension, A-fib with controlled ventricular rate Acute, or Chronic, or Acute on Chronic? @ -Acute Uncomplicated (without systemic symptoms) or Complicated (systemic symptoms)? @ -Complicated Side effects of treatment? @ -No Exacerbation, Progression, or Severe Exacerbation? @ -No Poses a threat to life or bodily function? How? (Chest pain, USA, SC, pneumonia, PE, COPD, DKA, ARF, appy, cholecystitis, CVA, Diverticulitis, Homicidal, Suicidal, threat to staff... and all critical care pts) @ -Yes as patient presents with strokelike symptoms - Lab Data Result diagrams: 04/03/24 06:55 04/03/24 06:55 Lab Results 04/02/24 04/02/24 04/02/24 Range/Units 16:01 16:01 16:01 WBC 8.0 (3.8-10.6) k/uL RBC 3.92 L (4.30-5.90) m/uL Hgb 12.5 L (13.0-17.5) gm/dL Hct 38.4 L (39.0-53.0) % MCV 98.0 (80.0-100.0) fL MCH 31.9 (25.0-35.0) pg MCHC 32.5 (31.0-37.0) g/dL RDW 13.0 (11.5-15.5) % Plt Count 360 (150-450) k/uL MPV 6.7 Neutrophils % 56 % Lymphocytes % 24 % Monocytes % 11 % Eosinophils % 7 % Basophils % 1 % Neutrophils # 4.5 (1.3-7.7) k/uL Lymphocytes # 2.0 (1.0-4.8) k/uL Monocytes # 0.9 (0-1.0) k/uL Eosinophils # 0.5 (0-0.7) k/uL Basophils # 0.1 (0-0.2) k/uL PT 10.1 (10.0-12.5) sec INR 0.9 (<1.2) APTT 23.7 (22.0-30.0) sec Sodium 138 (137-145) mmol/L Potassium 4.2 (3.5-5.1) mmol/L Chloride 108 H (98-107) mmol/L Carbon Dioxide 24 (22-30) mmol/L Anion Gap 6 mmol/L BUN 26 H (9-20) mg/dL Creatinine 0.84 (0.66-1.25) mg/dL Est GFR (CKD-EPI)AfAm >90 (>60 ml/min/1.73 sqM) Est GFR (CKD-EPI)NonAf 83 (>60 ml/min/1.73 sqM) Glucose 83 (74-99) mg/dL Calcium 9.0 (8.4-10.2) mg/dL Total Bilirubin 0.5 (0.2-1.3) mg/dL AST 34 (17-59) U/L ALT 19 (4-49) U/L Alkaline Phosphatase 98 (38-126) U/L Creatine Kinase 47 L (55-170) U/L Troponin I (0.000-0.034) ng/mL Total Protein 6.8 (6.3-8.2) g/dL Albumin 3.8 (3.5-5.0) g/dL 04/02/24 Range/Units 16:01 WBC (3.8-10.6) k/uL RBC (4.30-5.90) m/uL Hgb (13.0-17.5) gm/dL Hct (39.0-53.0) % MCV (80.0-100.0) fL MCH (25.0-35.0) pg MCHC (31.0-37.0) g/dL RDW (11.5-15.5) % Plt Count (150-450) k/uL MPV Neutrophils % % Lymphocytes % % Monocytes % % Eosinophils % % Basophils % % Neutrophils # (1.3-7.7) k/uL Lymphocytes # (1.0-4.8) k/uL Monocytes # (0-1.0) k/uL Eosinophils # (0-0.7) k/uL Basophils # (0-0.2) k/uL PT (10.0-12.5) sec INR (<1.2) APTT (22.0-30.0) sec Sodium (137-145) mmol/L Potassium (3.5-5.1) mmol/L Chloride (98-107) mmol/L Carbon Dioxide (22-30) mmol/L Anion Gap mmol/L BUN (9-20) mg/dL Creatinine (0.66-1.25) mg/dL Est GFR (CKD-EPI)AfAm (>60 ml/min/1.73 sqM) Est GFR (CKD-EPI)NonAf (>60 ml/min/1.73 sqM) Glucose (74-99) mg/dL Calcium (8.4-10.2) mg/dL Total Bilirubin (0.2-1.3) mg/dL AST (17-59) U/L ALT (4-49) U/L Alkaline Phosphatase (38-126) U/L Creatine Kinase (55-170) U/L Troponin I <0.012 (0.000-0.034) ng/mL Total Protein (6.3-8.2) g/dL Albumin (3.5-5.0) g/dL Disposition Clinical Impression: Cerebrovascular accident (CVA), Left-sided weakness Disposition: [facility] Condition: Serious Is patient prescribed a controlled substance at d/c from ED?: No Time of Disposition: 17:51 Decision to Admit Reason: Admit from EC Decision Date: 04/02/24 Decision Time: 17:51
--- NOTE | 2024-04-02 17:48 | XR ---
EXAMINATION TYPE: XR chest 2V DATE OF EXAM: 04/02/2024 COMPARISON: 03/02/2024 HISTORY: 78-year-old male confusion, altered mental status TECHNIQUE: AP and lateral views FINDINGS: Heart upper limits of normal in size. Aorta and pulmonary vasculature within normal limits. The later al view shows patchy opacity in the posterior eighth. No pleural effusion. IMPRESSION: Patchy atelectasis versus developing infiltrate at the posterior base seen only on the lateral view. Correlate with symptoms to exclude the possibility of an early pneumonia.
--- NOTE | 2024-04-02 18:15 | P.HPIM ---
History of Present Illness H&P Date: 04/02/24 Chief Complaint: left sided weakness 78-year-old male with medical history of paroxysmal atrial fibrillation who has not been on blood thinner, COPD, tracheomalacia and bronchiectasis, GERD presented for evaluation of left-sided weakness. Patient says that he was working on his car when he suddenly had his left arm dropped to the ground, and he felt very weak in both his left lower extremity as well as his left upper extremity. He was previously seen in our hospital last month for new onset atrial fibrillation with RVR, pneumonia. During that hospitalization he unde rwent ANITHA with cardioversion and was discharged on Eliquis, however, due to the cost of the medication, patient was unable to obtain his dosing. He was subsequently going to follow-up with cardiology for further guidance, however, he presented to the hospital with left sided weakness instead. His symptoms started at 3 PM. Code thrombolytic was initiated in the emergency room, however, patient opted against administration of TNK. He denies fevers, chills, nausea, vomiting, chest pain, palpitations, syncope, presyncope, cough, dyspnea, abdominal pain, constipation, diarrhea. In the emergency room, patient was afebrile, 191/127, heart rate 78, 100% on room air. CBC was remarkable for anemia down to 12.5, otherwise unremarkable. Basic metabolic panel showed mild prerenal azotemia to 26, otherwise unremarkable. Troponin was less than 0.012. Coags are unremarkable. Brain CT showed moderate burden of chronic small vessel ischemic disease, no acute intracranial abnormality. Head/neck CT scan showed mild 20% narrowing in the proximal right ICA, no large vessel intracranial arterial occlusion. EKG demonstrated clear parenchyma bilaterally with some fibrotic changes predominantly seen in the bases, possible left lower lobe infiltrate. Case was discussed with the emergency room physician decision was made to admit the patient to the hospital for suspected CVA. All Systems reviewed and pertinent positives and negatives noted in HPI, all other symptoms are negative Gen: in no apparent distress, resting comfortably in bed Eyes: PERRL, no scleral injection or icterus HENT: normocephalic, atraumatic, good hearing acuity, moist mucous membranes Neck: no tracheal deviation, full range of motion Resp: good air exchange, breathing comfortably with no accessory muscle use, no tactile fremitus CVS: good distal perfusion x 4, no pitting edema GI: soft, NTTP, ND, no hepatosplenomegaly : no suprapubic tenderness, no CVAT, craven catheter not present MSK: no clubbing, no cyanosis, no noted contractures of extremities Skin: no noted rashes, petechiae; temperature of skin is appropriate Neuro: moving all extremities, left upper extremity weakness at the shoulder, CN II-XII intact Psych: cooperative, euthymic mood, insight and judgment intact Labs and imaging as above Assessment/plan: Acute CVA, likely embolic -Admit as an inpatient with telemetry -We can defer echocardiogram at this time due to having one less than 1 month ago -neurology consultation is appreciated -Lipid panel, A1c, TSH -Aspirin, Plavix (Plavix loaded in the ER per neurology) -PT/OT Paroxysmal atrial fibrillation COPD without exacerbation Tracheomalacia and bronchiectasis GERD without esophagitis -Home medications reviewed and reconciled Patient is full code Past Medical History Past Medical History: No Reported History, Respiratory Disorder Additional Past Medical History / Comment(s): TRACHEAL BRONCHOMALACIA, HX RESP FAILURE. History of Any Multi-Drug Resistant Organisms: None Reported Past Surgical History: Appendectomy, Hernia Repair, Joint Replacement Additional Past Surgical History / Comment(s): appendectomy at 14 yrs old., Right inguinal hernia. left knee replacement aug 2023 Past Anesthesia/Blood Transfusion Reactions: No Reported Reaction, Motion Sickness Additional Past Anesthesia/Blood Transfusion Reaction / Comment(s): . Past Psychological History: Anxiety Smoking Status: Never smoker Past Alcohol Use History: None Reported Past Drug Use History: None Reported - Past Family History Mother Family Medical History: Cancer Additional Family Medical History / Comment(s): COLON CANCER Medications and Allergies Home Medications Medication Instructions Recorded Confirmed Type No Known Home Medications 04/02/24 04/02/24 History Allergies Allergy/AdvReac Type Severity Reaction Status Date / Time No Known Allergies Allergy Verified 04/02/24 17:05 Physical Exam Osteopathic Statement: *. No significant issues noted on an osteopathic structural exam other than those noted in the History and Physical/Consult. Vitals: Vital Signs Temp Pulse Resp BP Pulse Ox 04/02/24 17:16 73 17 147/83 99 04/02/24 17:01 72 18 165/94 99 04/02/24 16:46 78 17 190/122 99 04/02/24 16:31 77 17 183/101 100 04/02/24 16:23 98 F 78 18 191/127 100 04/02/24 16:16 67 17 191/127 100 04/02/24 16:01 70 18 214/120 99 Intake and Output 04/02/24 04/02/24 04/02/24 06:59 14:59 22:59 Intake Total 26.666 Balance 26.666 Intake: Intake, IV Titration 26.666 Amount niCARdipine 20 mg In 26.666 Sodium Chloride 0.9% 192 ml @ 10 MG/HR 100 mls/hr IV .Q2H ONE Rx#:[id number] Other: Weight 74.389 kg Results CBC & Chem 7: 04/02/24 16:01 04/02/24 16:01 Labs: Abnormal Lab Results - Last 24 Hours (Table) 04/02/24 04/02/24 Range/Units 16:01 16:01 RBC 3.92 L (4.30-5.90) m/uL Hgb 12.5 L (13.0-17.5) gm/dL Hct 38.4 L (39.0-53.0) % Chloride 108 H (98-107) mmol/L BUN 26 H (9-20) mg/dL Creatine Kinase 47 L (55-170) U/L
[2024-04-02] MEDS: ATORVASTATIN 40 MG TAB PO STA (19:05)
[2024-04-02] MEDS: ASPIRIN 325 MG TAB PO STA (19:06)
[2024-04-02] MEDS: CLOPIDOGREL 75 MG TAB PO STA (19:06)
[2024-04-02 19:07] LABS: Appearance,Urine Clear (Clear); Bilirubin,Urine Negative (Negative); Blood,Urine Moderate (Negative); Color,Urine Colorless; Glucose,Urine (UA) Negative (Negative); Ketones,Urine Negative (Negative); Leukocyte Esterase,Urine Negative (Negative); Mucus,Urine Rare /hpf; Nitrite,Urine Negative (Negative); PH, Urine 7.5 (5.0-8.0); Protein,Urine Negative (Negative); RBC,Urine 130 /hpf (0-5); Specific Gravity,Urine 1.013 (1.001-1.035); Urobilinogen,Urine <2.0 mg/dL (<2.0); WBC,Urine 3 /hpf (0-5)
[2024-04-02] MEDS: ATORVASTATIN 80 MG TAB PO SCH (22:06)
[2024-04-03] MEDS: SODIUM CHLORIDE 0.9% 1,000 ML IV STA (00:16)
[2024-04-03 07:19] LABS: Basophils # (A) 0.1 k/uL (0-0.2); Basophils % (A) 1 %; Eosinophils # (A) 0.5 k/uL (0-0.7); Eosinophils % (A) 5 %; HGB 12.5 gm/dL (13.0-17.5); Lymphocytes # (A) 1.3 k/uL (1.0-4.8); Lymphocytes % (A) 14 %; MCH 32.4 pg (25.0-35.0); MCV 98.4 fL (80.0-100.0); Mean Platelet Volume 6.3; Monocytes # (A) 0.8 k/uL (0-1.0); Monocytes % (A) 8 %; Neutrophils # (A) 6.5 k/uL (1.3-7.7); Neutrophils % (A) 71 %; Platelet Count 357 k/uL (150-450); RBC 3.86 m/uL (4.30-5.90); RDW 13.2 % (11.5-15.5); WBC 9.2 k/uL (3.8-10.6)
[2024-04-03 07:27] LABS: African American GFR (CKD) >90 (>60 ml/min/1.73 sqM); Anion Gap 1 mmol/L; Blood Urea Nitrogen 21 mg/dL (9-20); Calcium 8.7 mg/dL (8.4-10.2); Carbon Dioxide 27 mmol/L (22-30); Chloride 109 mmol/L (98-107); Glucose 84 mg/dL (74-99); Magnesium 1.9 mg/dL (1.6-2.3); Non-African American GFR(CKD) 85 (>60 ml/min/1.73 sqM); Potassium 3.9 mmol/L (3.5-5.1); Sodium 137 mmol/L (137-145)
[2024-04-03] MEDS: CLOPIDOGREL 75 MG TAB PO SCH (08:15)
[2024-04-03] MEDS: ASPIRIN 81 MG PO SCH (08:15)
[2024-04-03] MEDS: HEPARIN SODIUM,PORCINE 5,000 UNIT/ML 1 ML VIAL SQ SCH (08:30)
--- NOTE | 2024-04-03 10:29 | P.CNNES ---
History of Present Illness Consult date: 04/03/24 Requesting physician: Rosanna Chow Reason for Consult: suspected CVA History of Present Illness: This is a 78-year-old gentleman with history of atrial fibrillation status post cardioversion on 03/04/2024 and is not on any anticoagulation who presented emergency department on 04/02/2024 because of left-sided weakness. Patient stated that he is not on any anticoagulation since he was supposed to be on Eliquis but the bear was too expensive. He denies being on any antiplatelet yesterday around 2 PM he had episode of left-sided weakness. He denies any numbness any visual disturbance any speech difficulty any difficulty swallowing. He denies any history of stroke. Denies tobacco use, illicit drug use or alcoh ol use. Patient feels symptoms is improving but has subtle symptoms over the left upper extremity but otherwise doing better. Yesterday a code stroke was activated. Sensation blood pressure is 214/120. CT of the head is reported as moderate burden of chronic small vessel ischemic disease. No acute intracranial abnormality seen. Moderate to severe chronic ethmoid sinus disease. I personally reviewed the CT and I agree there is no acute or subacute stroke CT angiography of the head is reported as no large vessel intracranial arterial occlusion, significant stenosis or aneurysm changes seen. 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 CT angiography of the neck is reported as mild atherosclerotic change at the carotid bifurcation. This result and mild 20% narrowing proximal right ICA. Slightly more dominant left vertebral artery, an anatomic variation. I reviewed the rest of the lab workup. NIH stroke scale per the ED physician when she called me over the phone she stated at the 3 and the patient refused IV thrombolytic and his symptoms was improving. Review of Systems The positive and negative as per HPI. Past Medical History Past Medical History: No Reported History, Respiratory Disorder Additional Past Medical History / Comment(s): TRACHEAL BRONCHOMALACIA, HX RESP FAILURE. History of Any Multi-Drug Resistant Organisms: None Reported Past Surgical History: Appendectomy, Hernia Repair, Joint Replacement Additional Past Surgical History / Comment(s): appendectomy at 14 yrs old., Right inguinal hernia. left knee replacement aug 2023 Past Anesthesia/Blood Transfusion Reactions: No Reported Reaction, Motion Sickness Additional Past Anesthesia/Blood Transfusion Reaction / Comment(s): . Past Psychological History: Anxiety Additional Psychological History / Comment(s): SOME ANXIETY WITH SOB. Smoking Status: Never smoker Past Alcohol Use History: None Reported Past Drug Use History: None Reported - Past Family History Mother Family Medical History: Cancer Additional Family Medical History / Comment(s): COLON CANCER Medications and Allergies Home Medications Medication Instructions Recorded Confirmed Type No Known Home Medications 04/02/24 04/02/24 History Allergies Allergy/AdvReac Type Severity Reaction Status Date / Time No Known Allergies Allergy Verified 04/02/24 17:05 Physical Examination - Vital Signs Vital Signs: Vital Signs Temp Pulse Pulse Resp BP BP Pulse Ox 04/03/24 04:02 60 16 155/79 99 04/02/24 23:39 97.6 F 80 18 172/97 97 04/02/24 22:10 65 17 149/93 98 04/02/24 19:22 64 18 175/106 96 04/02/24 17:16 73 17 147/83 99 04/02/24 17:01 72 18 165/94 99 04/02/24 16:46 78 17 190/122 99 04/02/24 16:31 77 17 183/101 100 04/02/24 16:23 98 F 78 18 191/127 100 04/02/24 16:16 67 17 191/127 100 04/02/24 16:01 70 18 214/120 99 Intake and Output 04/02/24 04/03/24 04/03/24 22:59 06:59 14:59 Intake Total 26.666 780 Balance 26.666 780 Intake: Intake, IV Titration 26.666 Amount niCARdipine 20 mg In 26.666 Sodium Chloride 0.9% 192 ml @ 10 MG/HR 100 mls/hr IV .Q2H ONE Rx#:[id number] Oral 780 Other: Voiding Method Toilet Urinal # Voids 2 Weight 74.389 kg 72 kg GENERAL: The patient is lying in bed and is not in acute distress. NEUROLOGICAL: Higher mental function: The patient is awake, alert, oriented to self, place and time. Patient is following commands. No aphasia and no neglect. Cranial nerves: The pupils are round, equal and reactive to light and accommodation. Visual guerrero are full to confrontation throughout. Extraocular movement is intact no nystagmus is noted. Facial sensation is normal to touch throughout. The facial strength is normal throughout. Hearing is normal bilaterally to hand rub. Tongue is midline and moved [id number] without any difficulty. No dysarthria is noted. Shoulder shrug is normal bilaterally. Motor: The strength is left upper extremity is 4+ and has mild drift. O therwise 5 over 5 throughout. Normal tone and bulk. Cerebellum: Normal finger to nose heel to lucero bilaterally. Sensation: Sensation is normal to touch throughout. Reflexes (right/left): 2+ throughout. Plantars are downgoing bilaterally. Results - Laboratory Findings CBC and BMP: 04/03/24 06:55 04/03/24 06:55 Abnormal Lab Findings: Abnormal Labs 04/02/24 04/02/24 04/02/24 16:01 16:01 18:00 RBC 3.92 L Hgb 12.5 L Hct 38.4 L Chloride 108 H BUN 26 H Creatine Kinase 47 L Urine Blood Moderate H Urine RBC 130 H Urine Mucus Rare H 04/03/24 04/03/24 06:55 06:55 RBC 3.86 L Hgb 12.5 L Hct 38.0 L Chloride 109 H BUN 21 H Creatine Kinase Urine Blood Urine RBC Urine Mucus Assessment and Plan Assessment: Is a 78-year-old gentleman with recent fibrillation status post cardioversion on 03/04/2024 and he was supposed to be on anticoagulation (Eliquis) but could not afford it therefore he was not on any anticoagulation or antiplatelet and presented to our emergency department on 04/02/2024 for left-sided weakness. His initial NIH stroke scale was a 3 per the ED physician and patient refused IV thrombolytic and his symptoms is improving. Acute left-sided weakness likely due to acute ischemic stroke especially with a history of atrial fibrillation not on anticoagulation (on examination only has mild weakness over the left upper extremity) Hypertensive urgency Recent history of atrial fibrillation status post cardioversion on 03/04/2024 and is not on any anticoagulation since it expensive Plan: I spoke with the ED physician and we loaded patient with Plavix 300 mg once and aspirin 325 once then notified her to start the patient on aspirin 81 mg daily and Plavix 75 mg daily. Patient was not on any anticoagulation or antiplatelet prior to this. Obtain MRI of the brain to assess the stroke prior to starting anticoagulation and will recommend Coumadin and the patient is in agreement since can afford it compared to eliquis. Once the patient is started on anticoagulation I would recommend avoiding antiplatelet from a neurologic perspective. Patient is on Lipitor 80 mg nightly for secondary stroke prophylaxis. I ordered a repeat limited 2D echo. Lipid panel is ordered and pending PT OT and CAR FERRY CAPTAIN is consulted Continue neurochecks Cardiac monitoring Permissive hypertensive for an additional 24 hours. Recommend blood pressure to be controlled if it is more than 210/100. Will defer the rest of the medical management to primary team DVT prophylaxis start the patient on subcu heparin 5000 every 12 hours The plan discussed with the patient Thank for the consultation Dr. Saenz will resume neurology service tomorrow A.M. Time with Patient: Greater than 30
--- NOTE | 2024-04-03 10:45 | P.PN ---
Subjective Progress Note Date: 04/03/24 No new complaints today. Pt is ambulating with supervision. Still has some LUE weakness at tthe deltoid, but otherwise strength has returned to normal. Gen: in no apparent distress, resting comfortably in bed Eyes: PERRL, no scleral injection or icterus HENT: normocephalic, atraumatic, good hearing acuity, moist mucous membranes Neck: no tracheal deviation, full range of motion Resp: good air exchange, breathing comfortably with no accessory muscle use, no tactile fremitus CVS: good distal perfusion x 4, no pitting edema GI: soft, NTTP, ND, no hepatosplenomegaly : no suprapubic tenderness, no CVAT, craven catheter not present MSK: no clubbing, no cyanosis, no noted contractures of extremities Skin: no noted rashes, petechiae; temperature of skin is appropriate Neuro: moving all extremities, left upper extremity weakness at the shoulder, CN II-XII intact Psych: cooperative, euthymic mood, insight and judgment intact Hospital Course: 78-year-old male with medical history of paroxysmal atrial fibrillation who has not been on blood thinner, COPD, tracheomalacia and bronchiectasis, GERD p resented for evaluation of left-sided weakness. In the emergency room, patient was afebrile, 191/127, heart rate 78, 100% on room air. CBC was remarkable for anemia down to 12.5, otherwise unremarkable. Basic metabolic panel showed mild prerenal azotemia to 26, otherwise unremarkable. Troponin was less than 0.012. Coags are unremarkable. Brain CT showed moderate burden of chronic small vessel ischemic disease, no acute intracranial abnormality. Head/neck CT scan showed mild 20% narrowing in the proximal right ICA, no large vessel intracranial arterial occlusion. EKG demonstrated clear parenchyma bilaterally with some fibrotic changes predominantly seen in the bases, possible left lower lobe infiltrate. Case was discussed with the emergency room physician decision was made to admit the patient to the hospital for suspected CVA. Assessment/plan: Acute CVA, likely embolic Rhabdomyolisis -Admit as an inpatient with telemetry -Echo re-ordered by neurology -MR Brain is pending -neurology consultation is appreciated -Lipid panel, A1c, TSH -Aspirin, Plavix (Plavix loaded in the ER per neurology) -PT/OT Paroxysmal atrial fibrillation COPD without exacerbation Tracheomalacia and bronchiectasis GERD without esophagitis -Home medications reviewed and reconciled Patient is full code Objective - Vital Signs Vital signs: Vital Signs Temp 98.2 F 04/03/24 08:10 Pulse 68 04/03/24 08:10 Resp 17 04/03/24 08:10 BP 169/82 04/03/24 08:10 Pulse Ox 96 04/03/24 08:10 FiO2 Intake & Output 04/02/24 04/03/24 04/03/24 18:59 06:59 18:59 Intake Total 26.666 780 Output Total 350 Balance 26.666 430 Weight 74.389 kg 72 kg Intake: Intake, IV Titration 26.666 Amount niCARdipine 20 mg In 26.666 Sodium Chloride 0.9% 192 ml @ 10 MG/HR 100 mls/hr IV .Q2H ONE Rx#:[id number] Oral 780 Output: Urine 350 Other: Voiding Method Toilet Toilet Urinal Urinal # Voids 2 - Labs CBC & Chem 7: 04/03/24 06:55 04/03/24 06:55 Labs: Abnormal Lab Results - Last 24 Hours (Table) 04/02/24 04/02/24 04/02/24 Range/Units 16:01 16:01 18:00 RBC 3.92 L (4.30-5.90) m/uL Hgb 12.5 L (13.0-17.5) gm/dL Hct 38.4 L (39.0-53.0) % Chloride 108 H (98-107) mmol/L BUN 26 H (9-20) mg/dL Creatine Kinase 47 L (55-170) U/L Urine Blood Moderate H (Negative) Urine RBC 130 H (0-5) /hpf Urine Mucus Rare H (None) /hpf 04/03/24 04/03/24 Range/Units 06:55 06:55 RBC 3.86 L (4.30-5.90) m/uL Hgb 12.5 L (13.0-17.5) gm/dL Hct 38.0 L (39.0-53.0) % Chloride 109 H (98-107) mmol/L BUN 21 H (9-20) mg/dL Creatine Kinase (55-170) U/L Urine Blood (Negative) Urine RBC (0-5) /hpf Urine Mucus (None) /hpf
[2024-04-04 03:24] VITALS: BP 152/83; PULSE 60; RESP 18; TEMP 97.6
[2024-04-04 06:57] LABS: Chol/HDL Ratio 2.88 Ratio; LDL Cholesterol,Calculated 128.8 mg/dL (0.0-131.0); VLDL Calculation 14.18 mg/dL (5.00-40.00)
--- NOTE | 2024-04-04 08:27 | P.PN ---
Subjective Progress Note Date: 04/04/24 Hospital course: Patient is a very pleasant 78-year-old male with a past medical history of paroxysmal atrial fibrillation not on anticoagulation, COPD, tracheomalacia with bronchiectasis, and GERD. He presented to the emergency department on 04/02/2024 secondary to left-sided weakness. On arrival to our facility, patient underwent evaluation in the emergency department. Vital signs upon arrival showed blood pressure 214/120, heart rate 70, respiratory rate 18, temp 98.0 F, and SpO2 of 99% on room air. EKG completed showing atrial fibrillation with a controlled ventricular rate of 79 bpm. CBC was remarkable for anemia down to 12.5, otherwise unremarkable. Basic metabolic panel showed mild prerenal azotemia to 26, otherwise unremarkable. Troponin was less than 0.012. Coags are unremarkable. Brain CT showed moderate burden of chronic small vessel ischemic disease, no acute intracranial abnormality. Head/neck CT scan showed mild 20% narrowing in the proximal right ICA, no large vessel intracranial arterial occlusion. EKG demonstrated clear parenchyma bilaterally with some fibrotic changes predominantly seen in the bases, possible left lower lobe infiltrate. Jeremy artis was admitted under our services close consult to neurology for suspected CVA. Physical exam: Vital signs reviewed and stable. General: Nontoxic, no distress and appears stated age. Derm: Skin warm and dry, normal coloration for ethnicity. Head: Atraumatic, normocephalic and symmetric. Eyes: EOMs intact, no lid lag, and anicteric sclera Mouth: no lip lesions, mucus membranes moist Cardiovascular: regular rate and rhythm with normal S1S2, no murmur, positive posterior tibial pulses bilaterally, and cap refill < 2 seconds. Lungs: Respirations even, regular, and unlabored on room air. Lungs CTA bilaterally, no rhonchi, no rales, no wheezing, and no accessory muscle usage. Abdominal: soft, nontender to palpation, no guarding, no appreciable organomegaly Ext: ROM intact. No gross muscle atrophy, no edema, no contractures Neuro: Speech clear, face symmetrical and CN II-XII grossly intact with no noted focal neuro deficits Psych: Alert and oriented to person, place, time, and situation. Appropriate and pleasant affect. Assessment and Plan of Care: Acute CVA, likely embolic Hypertensive urgency upon arrival Paroxysmal atrial fibrillation, not on anticoagulation -Neurology following, reviewed documentation in chart. -MRI brain pending -Continue neurochecks every 4 hours -Lipid Profile showing elevated cholesterol of 219 otherwise normal findings. Hemoglobin A1c 5.9%. -Continue aspirin 81 mg daily, Plavix 75 mg daily, and atorvastatin 80 mg nightly. Data and imaging reviewed: Please see downtime charting CODE STATUS: Full code DVT prophylaxis: Roshan Patient was seen independently by Nurse Pracitioner. This document was prepared using [employer] dictation software. Please allow for errors in motor vehicle or caravan salesperson, while rare they do occur. Objective - Vital Signs Vital signs: Vital Signs Temp 97.6 F 04/04/24 03:20 Pulse 60 04/04/24 03:20 Resp 18 04/04/24 03:20 BP 152/83 04/04/24 03:20 Pulse Ox 95 04/04/24 03:20 FiO2 Intake & Output 04/03/24 04/04/24 04/04/24 18:59 06:59 18:59 Intake Total 1560 20 Output Total 350 Balance 1210 20 Weight 72.6 kg Intake: IV 20 Invasive Line 1 20 Oral 1560 Output: Urine 350 Other: Voiding Method Toilet Toilet Urinal Urinal # Voids 1 1 - Labs CBC & Chem 7: 04/04/24 07:57 04/04/24 07:57 Labs: Abnormal Lab Results - Last 24 Hours (Table) 04/03/24 Range/Units 06:55 Cholesterol 219.00 H (0.00-200.00) mg/dL HDL Cholesterol 76.00 H (40.00-60.00) mg/dL
[2024-04-04] MEDS ORDERED: HEPARIN SODIUM,PORCINE 5,000 UNIT/ML 1 ML VIAL ONE ×2 (08:44→20:49)
[2024-04-04] MEDS ORDERED: ASPIRIN 81 MG ONE (08:44)
[2024-04-04] MEDS ORDERED: CLOPIDOGREL 75 MG TAB ONE (08:44)
[2024-04-04] MEDS ORDERED: ATORVASTATIN 80 MG TAB ONE (20:48)
[2024-04-05] MEDS ORDERED: ASPIRIN 81 MG ONE (08:42)
[2024-04-05] MEDS ORDERED: CLOPIDOGREL 75 MG TAB ONE (08:42)
[2024-04-05] MEDS ORDERED: HEPARIN SODIUM,PORCINE 5,000 UNIT/ML 1 ML VIAL ONE (08:42)
[2024-04-27 13:58] LABS: HCT 39.6 % (39.0-53.0); HGB 12.6 gm/dL (13.0-17.5); RBC 3.97 m/uL (4.30-5.90); WBC 8.5 k/uL (3.8-10.6)
[2024-04-27 13:59] LABS: Basophils # (A) 0.1 k/uL (0-0.2); Basophils % (A) 1 %; Eosinophils # (A) 0.5 k/uL (0-0.7); Eosinophils % (A) 6 %; Lymphocytes # (A) 1.2 k/uL (1.0-4.8); Lymphocytes % (A) 15 %; MCH 31.9 pg (25.0-35.0); MCHC 31.9 g/dL (31.0-37.0); Monocytes # (A) 0.7 k/uL (0-1.0); Monocytes % (A) 8 %; Neutrophils # (A) 5.9 k/uL (1.3-7.7); Neutrophils % (A) 69 %; Platelet Count 372 k/uL (150-450); RDW 13.1 % (11.5-15.5)
[2024-04-27 14:00] LABS: African American GFR (CKD) >90 (>60 ml/min/1.73 sqM); Anion Gap 7 mmol/L; Blood Urea Nitrogen 20 mg/dL (9-20); Calcium 9.2 mg/dL (8.4-10.2); Carbon Dioxide 24 mmol/L (22-30); Chloride 105 mmol/L (98-107); Glucose 121 mg/dL (74-99); Magnesium 1.9 mg/dL (1.6-2.3); Non-African American GFR(CKD) 82 (>60 ml/min/1.73 sqM); Potassium 4.3 mmol/L (3.5-5.1); Sodium 136 mmol/L (137-145)
--- NOTE | 2024-05-05 10:04 | MR ---
"MRI BRAIN without CONTRAST CLINICAL HISTORY: 78-year-old male with stroke, left-sided weakness DATE: 04/05/24. TECHNIQUE: Multiplanar, multisequence imaging of the brain and brainstem is performed without IV cont rast. Diffusion-weighted imaging is performed. Comparison: None available during downtime FINDINGS: Diffusion weighted images demonstrate small foci of restricted diffusion about the right central sulc us superiorly with corresponding bright T2/FLAIR weighted signal. T2/FLAIR weighted sequences show additional moderate patchy and confluent periventricular deep white matter change in both cerebral hemispheres. There is no midline shift or herniation. No hydrocephalus. There is no extra-axial fluid collection. The ventricular system and cisternal spaces are normal in size and appearance. The brain volume is a ge appropriate. The major intracranial flow voids are intact. Midline structures demonstrate normal morphology. The craniocervical junction appears within normal limits. There is moderate to severe mucosal thickening throughout the ethmoid air cells and frontal sinuses. Leftward nasal septal deviation is noted. IMPRESSION: 1. Small foci of acute cortical infarct about the right central sulcus superiorly. Infarct greater th an 6 hours in duration given bright T2/FLAIR signal. No mass effect, midline shift, or herniation. 2. Background moderate burden of chronic small vessel ischemic disease. 3. Moderate to severe chronic ethmoid and frontal sinus disease."
== END 2024-04-05 16:55 | disposition home or self-care (01) | DRG 65 ==
LOC: EC 15:55 → 3SCARD 17:44
PROVIDERS: ADMIT Student in an Organized Health Care Education/Training Program; ATTEND Student in an Organized Health Care Education/Training Program
PROC: 4A10X4Z Monitoring of Central Nervous Electrical Activity, External Approach (ICD-10-PCS; principal; 2024-04-03)
DX: I63.40 Cerebral infarction due to embolism of unspecified cerebral artery (principal); G81.94 Hemiplegia, unspecified affecting left nondominant side; J47.0 Bronchiectasis with acute lower respiratory infection; F41.9 Anxiety disorder, unspecified; D64.9 Anemia, unspecified; I16.0 Hypertensive urgency; I48.0 Paroxysmal atrial fibrillation; J32.2 Chronic ethmoidal sinusitis; J39.8 Other specified diseases of upper respiratory tract; K21.9 Gastro-esophageal reflux disease without esophagitis; R29.703 NIHSS score 3; J84.10 Pulmonary fibrosis, unspecified; Y92.810 Car as the place of occurrence of the external cause; Z53.20 Procedure and treatment not carried out because of patient's decision for unspecified reasons; Z80.0 Family history of malignant neoplasm of digestive organs; Z96.652 Presence of left artificial knee joint; Z87.19 Personal history of other diseases of the digestive system; Z87.01 Personal history of pneumonia (recurrent)
CPT/HCPCS: 36415; 70450; 70496; 70498; 71046; 80048; 80053; 80061; 81001; 82550; 83036; 83735; 84443; 84484; 85025; 85027; 85610; 85730; 93005; 96365; 96366; 99291

== ENCOUNTER 2024-04-23 08:36 | Emergency (ER) | payer MEDICARE ==
[2024-04-23] MEDS ORDERED: LIDOCAINE 1% INJ 10MG/ML (20 ML MDV) ONE (10:00)
[2024-04-23] MEDS ORDERED: ACET/COD 300 MG/30 MG STARTER PACK 6 TAB BTL PO ONE (12:17)
== END 2024-04-23 12:18 | disposition home or self-care (01) ==
LOC: EC 08:36
DX: N39.0 Urinary tract infection, site not specified (principal)
CPT/HCPCS: 51798; 87086; 99283

== ENCOUNTER 2024-04-24 21:41 | Observation (INO) | payer MEDICARE ==
--- NOTE | 2024-04-24 21:59 | ED ---
Male Urogenital HPI - General Chief complaint: Urogenital Stated complaint: Unable to urinate Time Seen by Provider: 04/24/24 21:42 Source: patient, RN notes reviewed, old records reviewed, Caregiver Mode of arrival: ambulatory Limitations: no limitations - History of Present Illness Initial comments: This is a 78-year-old male to the ER for evaluation of severe abdominal pain inability urinate, patient presents with hematuria with recent placement of Craven catheter for inability to urinate. MD Complaint: testicle swelling, penile discharge, dysuria, other (hematuria abdominal pain) -: hour(s) Location: penis, abdomen Radiation: none Severity: severe Severity scale (1-10): 10 Quality: aching, sharp Consistency: constant Improves with: none Worsens with: none indwelling catheter Reports: urinary retention, blood in urine - Related Data Home Medications Medication Instructions Recorded Confirmed Apixaban [Eliquis] 5 mg PO BID 04/25/24 04/25/24 Aspirin EC [Ecotrin Low Dose] 81 mg PO DAILY 04/25/24 04/25/24 Atorvastatin [Lipitor] 40 mg PO HS 04/25/24 04/25/24 Budesonide [Pulmicort] 0.5 mg INHALATION RT-BID 04/25/24 04/25/24 Formoterol Fumarate [Perforomist] 20 mcg INHALATION RT-BID 04/25/24 04/25/24 Metoprolol Succinate [Toprol XL] 50 mg PO DAILY 04/25/24 04/25/24 Previous Rx's Medication Instructions Recorded ALPRAZolam [Xanax] 0.25 mg PO Q8HR PRN 3 Days #9 tab 04/26/24 Tamsulosin [Flomax] 0.4 mg PO DAILY #30 cap 04/26/24 Allergies Allergy/AdvReac Type Severity Reaction Status Date / Time No Known Allergies Allergy Verified 05/04/24 00:36 Review of Systems ROS Statement: Those systems with pertinent positive or pertinent negative responses have been documented in the HPI. ROS Other: All systems not noted in ROS Statement are negative. Past Medical History Past Medical History: No Reported History, Respiratory Disorder Additional Past Medical History / Comment(s): TRACHEAL BRONCHOMALACIA, HX RESP FAILURE. History of Any Multi-Drug Resistant Organisms: None Reported Past Surgical History: Appendectomy, Hernia Repair, Joint Replacement Additional Past Surgical History / Comment(s): appendectomy at 14 yrs old., Right inguinal hernia. left knee replacement aug 2023 Past Anesthesia/Blood Transfusion Reactions: No Reported Reaction, Motion Sickness Additional Past Anesthesia/Blood Transfusion Reaction / Comment(s): . Past Psychological History: Anxiety Smoking Status: Never smoker Past Alcohol Use History: None Reported Past Drug Use History: None Reported - Past Family History Mother Family Medical History: Cancer Additional Family Medical History / Comment(s): COLON CANCER General Exam Limitations: no limitations General appearance: alert, in no apparent distress, anxious, in distress Head exam: Present: atraumatic, normocephalic, normal inspection Eye exam: Present: normal appearance, PERRL, EOMI. Absent: scleral icterus, conjunctival injection, periorbital swelling ENT exam: Present: normal exam, mucous membranes moist Neck exam: Present: normal inspection. Absent: tenderness, meningismus, lymphadenopathy Respiratory exam: Present: normal lung sounds bilaterally. Absent: respiratory distress, wheezes, rales, rhonchi, stridor Cardiovascular Exam: Present: regular rate, normal rhythm, normal heart sounds. Absent: systolic murmur, diastolic murmur, rubs, gallop, clicks GI/Abdominal exam: Present: soft, normal bowel sounds. Absent: distended, ten derness, guarding, rebound, rigid Extremities exam: Present: normal inspection, full ROM, normal capillary refill. Absent: tenderness, pedal edema, joint swelling, calf tenderness Back exam: Present: normal inspection Neurological exam: Present: alert, oriented X3, CN II-XII intact Psychiatric exam: Present: normal affect, normal mood Skin exam: Present: warm, dry, intact, normal color. Absent: rash Course Vital Signs 04/24/24 04/25/24 04/25/24 21:46 01:35 02:17 Temperature 98.3 F 98.0 F 102.7 F H Pulse Rate 67 138 H 118 H Respiratory 18 22 18 Rate Blood Pressure 143/95 244/74 144/80 O2 Sat by Pulse 97 94 L 95 Oximetry 04/25/24 03:29 Temperature 99.5 F Pulse Rate 110 H Respiratory 18 Rate Blood Pressure 135/89 O2 Sat by Pulse 95 Oximetry - Reevaluation(s) Reevaluation #1: 04/25/24 02:05 Records reviewed Reevaluation #2: 04/25/24 02:05 Patient has difficult to pass Craven catheter unable to get bladder drained Reevaluation #3: 04/25/24 02:06 Patient informed of results questions answered Reevaluation #4: Was pt. sent in by a medical professional or institution (RISHABH Beauchamp, BLASTING WORKER, urgent care, hospital, or longterm...) When possible be specific @ -no Did you speak to anyone other than the patient for history (EMS, parent, family, police, friend...)? What history was obtained from this source @ -no Did you review nursing and triage notes (agree or disagree)? Why? @ -agree Are old charts reviewed (outside hosp., previous admission, EMS record, old EKG, old radiological studies, urgent care reports/EKG's, longterm records)? Report findings @ -yes Differential Diagnosis (chest pain, altered mental status, abdominal pain women, abdominal pain men, vaginal bleeding, weakness, fever, dyspnea, syncope, headache, dizziness, GI bleed, back pain, seizure, CVA, palpatations, mental health, musculoskeletal)? @ -prior EKG interpreted by me (3pts min.). @ -no X-rays interpreted by me (1pt min.). @ -no CT interpreted by me (1pt min.). @ -yes negative for acute disease U/S interpreted by me (1pt. min.). @ -no What testing was considered but not performed or refused? (CT, X-rays, U/S, labs)? Why? @ -none What meds were considered but not given or refused? Why? @ -none Did you discuss the management of the patient with other professionals (professionals i.e. RISHABH Beauchamp, BLASTING WORKER, lab, RT, psych nurse, social work therapist, faceter, teacher, targeting acquisition officer, patient case coordinator)? Give summary @ -no Was smoking cessation discussed for >3mins.? @ -no Was critical care preformed (if so, how long)? @ -no Were there social determinants of health that impacted care today? How? (Homelessness, low income, unemployed, alcoholism, drug addiction, transportation, low edu. Level, literacy, decrease access to med. care, correction, rehab)? @ -none Was there de-escalation of care discussed even if they declined (Discuss DNR or withdrawal of care, Hospice)? DNR status @ -no What co-morbidities impacted this encounter? (DM, HTN, Smoking, COPD, CAD, Ca ncer, CVA, ARF, Chemo, Hep., AIDS, mental health diagnosis, sleep apnea, morbid obesity)? @ -none Was patient admitted / discharged? Hospital course, mention meds given and route, prescriptions, significant lab abnormalities, going to OR and other pertinent info. @ - 78 male to the emergency department today will admit for malfunctioning Craven catheter significant hematuria Admitted hematuria with Craven catheter Undiagnosed new problem with uncertain prognosis? @ -no Drug Therapy requiring intensive monitoring for toxicity (Heparin, Nitro, Insulin, Cardizem)? @ -no Were any procedures done? @ -no Diagnosis/symptom? @ - Acute, or Chronic, or Acute on Chronic? @ -Acute Uncomplicated (without systemic symptoms) or Complicated (systemic symptoms)? @ -Complicated Side effects of treatment? @ -no Exacerbation, Progression, or Severe Exacerbation? @ -exacerbation Poses a threat to life or bodily function? How? (Chest pain, [place], [place], pneumonia, PE, COPD, DKA, ARF, appy, cholecystitis, CVA, Diverticulitis, Homicidal, Suicidal, threat to staff... and all critical care pts) @ -yes seems of age Reevaluation #5: Differential Abdominal Pain Men: Appendicitis, cholecystitis, diverticulosis, ischemic bowel, pancreatitis, hepatitis, UTI, gastroenteritis, AAA, incarcerated hernia, bowel obstruction, constipation, inflammatory bowel, hepatitis, peptic ulcer disease, splenic infarction, perforated viscus, testicular torsion, this is not meant to be an all-inclusive list - Consultations Consultation #1: Spoke with sound who agrees to admit this patient Consultation #2: Spoke with urology on-call Medical Decision Making - Medical Decision Making 78 male to the emergency department today will admit for malfunctioning Craven catheter significant hematuria - Lab Data Result diagrams: 04/27/24 10:32 04/26/24 06:48 Lab Results 04/24/24 04/24/24 04/24/24 Range/Units 22:58 22:58 22:58 WBC 9.8 (3.8-10.6) k/uL RBC 3.85 L (4.30-5.90) m/uL Hgb 12.4 L (13.0-17.5) gm/dL Hct 37.5 L (39.0-53.0) % MCV 97.4 (80.0-100.0) fL MCH 32.2 (25.0-35.0) pg MCHC 33.0 (31.0-37.0) g/dL RDW 13.3 (11.5-15.5) % Plt Count 279 (150-450) k/uL MPV 7.5 Neutrophils % 72 % Lymphocytes % 11 % Monocytes % 9 % Eosinophils % 5 % Basophils % 1 % Neutrophils # 7.0 (1.3-7.7) k/uL Lymphocytes # 1.1 (1.0-4.8) k/uL Monocytes # 0.9 (0-1.0) k/uL Eosinophils # 0.4 (0-0.7) k/uL Basophils # 0.1 (0-0.2) k/uL Sodium 136 L (137-145) mmol/L Potassium 3.6 (3.5-5.1) mmol/L Chloride 103 (98-107) mmol/L Carbon Dioxide 23 (22-30) mmol/L Anion Gap 10 mmol/L BUN 18 (9-20) mg/dL Creatinine 0.98 (0.66-1.25) mg/dL Est GFR (CKD-EPI)AfAm 85 (>60 ml/min/1.73 sqM) Est GFR (CKD-EPI)NonAf 74 (>60 ml/min/1.73 sqM) Glucose 116 H (74-99) mg/dL Calcium 8.8 (8.4-10.2) mg/dL Total Bilirubin 0.6 (0.2-1.3) mg/dL AST 47 (17-59) U/L ALT 41 (4-49) U/L Alkaline Phosphatase 190 H (38-126) U/L Total Protein 6.1 L (6.3-8.2) g/dL Albumin 3.2 L (3.5-5.0) g/dL Amylase 64 (30-110) U/L Lipase 126 (23-300) U/L Urine Color Red Urine Appearance Cloudy (Clear) Urine pH 6.5 (5.0-8.0) Ur Specific [place] 1.019 (1.001-1.035) Urine Protein 1+ H (Negative) Urine Glucose (UA) Negative (Negative) Urine Ketones Negative (Negative) Urine Blood Large H (Negative) Urine Nitrite Negative (Negative) Urine Bilirubin Negative (Negative) Urine Urobilinogen <2.0 (<2.0) mg/dL Ur Leukocyte Esterase Moderate H (Negative) Urine RBC >182 H (0-5) /hpf Urine WBC 17 H (0-5) /hpf Urine Mucus Moderate H (None) /hpf - EKG Data -: EKG Interpreted by Me (EKG is A-fib with RVR 112 QRS 90 QTc 370) - Radiology Data Radiology results: report reviewed (CT abd pelvis shows blood in bladder, pyelo, malpositioned craven), image reviewed Disposition Clinical Impression: Acute retention of urine, Hematuria Disposition: ADMITTED IP TO THIS HOSP Condition: Fair Is patient prescribed a controlled substance at d/c from ED?: No Time of Disposition: 02:00
[2024-04-24] MEDS: KETOROLAC 15 MG/ML 1 ML VIAL IVP STA (23:09)
[2024-04-24] MEDS: SODIUM CHLORIDE 0.9% 1,000 ML IV STA (23:11)
[2024-04-24 23:22] LABS: Basophils # (A) 0.1 k/uL (0-0.2); Basophils % (A) 1 %; Eosinophils # (A) 0.4 k/uL (0-0.7); Eosinophils % (A) 5 %; HCT 37.5 % (39.0-53.0); HGB 12.4 gm/dL (13.0-17.5); Lymphocytes # (A) 1.1 k/uL (1.0-4.8); Lymphocytes % (A) 11 %; MCH 32.2 pg (25.0-35.0); MCV 97.4 fL (80.0-100.0); Mean Platelet Volume 7.5; Monocytes # (A) 0.9 k/uL (0-1.0); Monocytes % (A) 9 %; Neutrophils % (A) 72 %; Platelet Count 279 k/uL (150-450); RBC 3.85 m/uL (4.30-5.90); RDW 13.3 % (11.5-15.5); WBC 9.8 k/uL (3.8-10.6)
[2024-04-24 23:40] LABS: ALT 41 U/L (4-49); AST 47 U/L (17-59); African American GFR (CKD) 85 (>60 ml/min/1.73 sqM); Albumin 3.2 g/dL (3.5-5.0); Alkaline Phosphatase 190 U/L (38-126); Amylase 64 U/L (30-110); Anion Gap 10 mmol/L; Blood Urea Nitrogen 18 mg/dL (9-20); Calcium 8.8 mg/dL (8.4-10.2); Carbon Dioxide 23 mmol/L (22-30); Chloride 103 mmol/L (98-107); Glucose 116 mg/dL (74-99); Lipase 126 U/L (23-300); Non-African American GFR(CKD) 74 (>60 ml/min/1.73 sqM); Potassium 3.6 mmol/L (3.5-5.1); Sodium 136 mmol/L (137-145); Total Bilirubin 0.6 mg/dL (0.2-1.3); Total Protein 6.1 g/dL (6.3-8.2)
[2024-04-24] MEDS: MORPHINE SULFATE 4 MG/ML SYRINGE IVP STA (23:45)
[2024-04-25] MEDS: SODIUM CHLORIDE 0.9% 500 ML 500 ML IV STA (00:22)
[2024-04-25 01:02] LABS: Appearance,Urine Cloudy (Clear); Bilirubin,Urine Negative (Negative); Blood,Urine Large (Negative); Color,Urine Red; Glucose,Urine (UA) Negative (Negative); Ketones,Urine Negative (Negative); Leukocyte Esterase,Urine Moderate (Negative); Mucus,Urine Moderate /hpf; Nitrite,Urine Negative (Negative); PH, Urine 6.5 (5.0-8.0); Protein,Urine 1+ (Negative); RBC,Urine >182 /hpf (0-5); Specific Gravity,Urine 1.019 (1.001-1.035); Urobilinogen,Urine <2.0 mg/dL (<2.0); WBC,Urine 17 /hpf (0-5)
[2024-04-25] MEDS: ACETAMINOPHEN TAB 500 MG TAB PO STA (02:32)
[2024-04-25] MEDS: IBUPROFEN 800 MG TAB PO STA (02:33)
[2024-04-25] MEDS ORDERED: ONDANSETRON 4 MG/2 ML VIAL IVP PRN (02:35)
[2024-04-25] MEDS ORDERED: MORPHINE SULFATE 4 MG/ML SYRINGE IV PRN (02:35)
[2024-04-25] MEDS ORDERED: NALOXONE 0.4 MG/ML 1 ML VIAL IV PRN (02:35)
[2024-04-25] MEDS ORDERED: KETOROLAC 15 MG/ML 1 ML VIAL IVP PRN (02:35)
[2024-04-25] MEDS: LIDOCAINE 2% URO-JET JELLY 5 ML KIT URETHRAL ONE (02:49)
[2024-04-25] MEDS: SODIUM CHLORIDE 0.9% 1,000 ML IV SCH (02:49)
--- NOTE | 2024-04-25 05:45 | P.HPIM ---
History of Present Illness H&P Date: 04/25/24 Patient is a 78-year-old male with PMH of A-fib on [facility] who had initially presented to the emergency room on Thursday with complaints of inability to urinate. The patient notes that his symptoms started on with some urinary hesitancy along with dysuria. The symptoms quickly progressed and he was unable to urinate on Thursday which prompted him to come to the emergency room. A Bryant catheter was inserted although the patient reports that it was not draining well and he was sent home. The patient continued to have persistent penile and perineal pain for which she returned to the emergency room on Thursday. The Bryant catheter was repositioned and the patient's pain significantly improved. He reported feeling at his baseline at the time of interview and had no additional complaints. He reports that the pain was previously a 9 out of 10 but is currently at a 0. He denied experiencing chest discomfort, shortness of breath, fever, chills, cough, nausea, vomiting, diarrhea. A CT abdomen pelvis in the emergency room revealed a trace hyperdense material in the posterior aspect of the bladder with mass not excluded along with bilateral perinephric fat stranding with fullness of the right renal collecting system with a nonobstructing right renal stone. There was also a malpositioned Bryant catheter terminating in the prostate with the catheter balloon located at the base of the penile shaft. Laboratory evaluation revealed a hemoglobin of 12.4 with UA showing greater than 182 RBCs with 17 WBCs. ED documentation reviewed and case discussed with ED provider. Review of systems: Pertinent positives and negatives as discussed in HPI, a complete review of systems was performed and all other systems are negative. Physical examination: Vital signs reviewed General: non toxic, no distress, appears at stated age, normal weight Derm: no unusual rashes/lesions, warm Head: atraumatic, normocephalic, symmetric Eyes: EOMI, no lid lag, anicteric sclera, pupils equal round reactive to light ENT: Nose and ears atraumatic Neck: No cervical lymphadenopathy, trachea midline, supple Mouth: no lip lesion, mucus membranes moist Cardiovascular: Irregularly irregular, no murmur, positive dorsalis pedis pulse bilateral, no edema Lungs: CTA bilateral, no rhonchi, no rales, no accessory muscle use Abdominal: soft, nontender to palpation, no guarding, Bryant catheter with brig ht red urine Ext: muscle strength 5 out of 5 in all 4 extremities grossly, no gross muscle atrophy, no contractures, Neuro: CN II-XI grossly intact, no gross focal neuro deficits Psych: Alert, oriented, appropriate affect Assessment: Inability to urinate with possible bladder mass with hematuria, status post Bryant catheter placement Chronic additions: A-fib Imaging: A CT abdomen pelvis in the emergency room revealed a trace hyperdense material in the posterior aspect of the bladder with mass not excluded along with bilateral perinephric fat stranding with fullness of the right renal collecting system with a nonobstructing right renal stone. There was also a malpositioned Bryant catheter terminating in the prostate with the catheter balloon located at the base of the penile shaft. Data Review: Laboratory evaluation revealed a hemoglobin of 12.4 with UA showing greater than 182 RBCs with 17 WBCs. Plan: Bryant catheter was repositioned after the CT scan results Urology consulted Continue with IV fluids normal saline 130 cc/h Resume patient's home medications once reconciled DVT prophylaxis: Eliquis The patient is admitted with an anticipated less than 2 midnight stay for debra luation of hematuria CODE STATUS: Full Code Discussed with: Patient Anticipated discharge place: Home Past Medical History Past Medical History: No Reported History, Respiratory Disorder Additional Past Medical History / Comment(s): TRACHEAL BRONCHOMALACIA, HX RESP FAILURE. History of Any Multi-Drug Resistant Organisms: None Reported Past Surgical History: Appendectomy, Hernia Repair, Joint Replacement Additional Past Surgical History / Comment(s): appendectomy at 14 yrs old., Stroke/TIA in March 2024. Right inguinal hernia. left knee replacement aug 2023 Past Anesthesia/Blood Transfusion Reactions: No Reported Reaction, Motion Sickness Additional Past Anesthesia/Blood Transfusion Reaction / Comment(s): . Past Psychological History: Anxiety Additional Psychological History / Comment(s): SOME ANXIETY WITH SOB. Smoking Status: Never smoker Past Alcohol Use History: None Reported Past Drug Use History: None Reported - Past Family History Mother Family Medical History: Cancer Additional Family Medical History / Comment(s): COLON CANCER Medications and Allergies Home Medications Medication Instructions Recorded Confirmed Type No Known Home Medications 04/02/24 04/02/24 History Allergies Allergy/AdvReac Type Severity Reaction Status Date / Time No Known Allergies Allergy Verified 04/24/24 21:47 Physical Exam Vitals: Vital Signs Temp Pulse Pulse Resp BP BP Pulse Ox 04/25/24 05:28 99.0 F 76 18 102/61 94 L 04/25/24 04:12 98.3 F 90 20 136/73 97 04/25/24 03:29 99.5 F 110 H 18 135/89 95 04/25/24 02:17 102.7 F H 118 H 18 144/80 95 04/25/24 01:35 98.0 F 138 H 22 244/74 94 L 04/24/24 21:46 98.3 F 67 18 143/95 97 Intake and Output 04/24/24 04/24/24 04/25/24 14:59 22:59 06:59 Intake Total 1050 Balance 1050 Intake: IV 1050 Invasive Line 1 1050 Other: Voiding Method Indwelling Catheter Weight 71.668 kg 71.668 kg Results CBC & Chem 7: 04/24/24 22:58 04/24/24 22:58 Labs: Abnormal Lab Results - Last 24 Hours (Table) 04/24/24 04/24/24 04/24/24 Range/Units 22:58 22:58 22:58 RBC 3.85 L (4.30-5.90) m/uL Hgb 12.4 L (13.0-17.5) gm/dL Hct 37.5 L (39.0-53.0) % Sodium 136 L (137-145) mmol/L Glucose 116 H (74-99) mg/dL Alkaline Phosphatase 190 H (38-126) U/L Total Protein 6.1 L (6.3-8.2) g/dL Albumin 3.2 L (3.5-5.0) g/dL Urine Protein 1+ H (Negative) Urine Blood Large H (Negative) Ur Leukocyte Esterase Moderate H (Negative) Urine RBC >182 H (0-5) /hpf Urine WBC 17 H (0-5) /hpf Urine Mucus Moderate H (None) /hpf Thrombosis Risk Factor Assmnt - Choose All That Apply Any of the Below Risk Factors Present?: Yes Each Factor Represents 1 point: Medical pt on bed rest, Serious lung disease incl. pneumonia (< 1month) Other Risk Factors: Yes Each Risk Factor Represents 3 Points: Age 75 years or older Other congenital or acquired thrombophilia - If yes, enter type in comment: Yes Each Risk Factor Represents 5 Points: Stroke (< 1 month) Thrombosis Risk Factor Assessment Total Risk Factor Score: 10 Thrombosis Risk Factor Assessment Level: High Risk
--- NOTE | 2024-04-25 14:29 | P.PN ---
Progress Note - Text Progress Note Date: 04/25/24 Patient was seen and examined, only has one clot in the Bryant bag. Penile pain is improved, awaiting urology evaluation.
[2024-04-25] MEDS: APIXABAN 5 MG TAB PO SCH (20:37)
[2024-04-25] MEDS: ATORVASTATIN 40 MG TAB PO SCH (20:37)
[2024-04-25] MEDS: FORMOTEROL FUMARATE 20 MCG/2 ML NEBU INHALATION SCH (20:46)
[2024-04-25] MEDS: BUDESONIDE 0.5 MG/2 ML NEBU INHALATION SCH (20:46)
--- NOTE | 2024-04-26 09:28 | P.GSCN ---
History of Present Illness Consult date: 04/26/24 Reason for Consult: Urinary retention Requesting physician: Jayjay Mata History of present illness: The patient is a 78-year-old white male seen by Dr. Lopez in July 2023 for a mildly elevated PSA level (4.10). His prostate was noted to be mildly enlarged but smooth at that time, and he reported a strong urinary stream. On April 21, 2024 he began to experience dysuria and hesitancy. This progressed to urinary retention, and he was seen in the ER on April 23 and underwent Bryant catheter placement. The catheter drained poorly and he was experiencing penile/perineal pain. He returned to the ER on April 24, at which time a CT scan was obtained revealing bilateral perinephric fat stranding, right renal p elvic fullness, bladder distention, and a malpositioned Bryant catheter with the balloon inflated within the bulbous urethra. The catheter was repositioned and the patient's pain is now improved. The Bryant catheter is draining clear yellow urine. He does report some urethral oozing around the catheter. Review of Systems - Constitutional Denies chills, Denies fever - Genitourinary Reports as per HPI Past Medical History Past Medical History: No Reported History, Respiratory Disorder Additional Past Medical History / Comment(s): TRACHEAL BRONCHOMALACIA, HX RESP FAILURE. History of Any Multi-Drug Resistant Organisms: None Reported Past Surgical History: Appendectomy, Hernia Repair, Joint Replacement Additional Past Surgical History / Comment(s): appendectomy at 14 yrs old., Stroke/TIA in March 2024. Right inguinal hernia. left knee replacement aug 2023 Past Anesthesia/Blood Transfusion Reactions: No Reported Reaction, Motion Sickness Additional Past Anesthesia/Blood Transfusion Reaction / Comm: . Past Psychological History: Anxiety Additional Psychological History / Comment(s): SOME ANXIETY WITH SOB. Smoking Status: Never smoker Past Alcohol Use History: None Reported Past Drug Use History: None Reported - Past Family History Mother Family Medical History: Cancer Additional Family Medical History / Comment(s): COLON CANCER Medications and Allergies Home Medications Medication Instructions Recorded Confirmed Type Apixaban [Eliquis] 5 mg PO BID 04/25/24 04/25/24 History Aspirin EC [Ecotrin Low Dose] 81 mg PO DAILY 04/25/24 04/25/24 History Atorvastatin [Lipitor] 40 mg PO HS 04/25/24 04/25/24 History Budesonide [Pulmicort] 0.5 mg INHALATION RT-BID 04/25/24 04/25/24 History Formoterol Fumarate [Perforomist] 20 mcg INHALATION RT-BID 04/25/24 04/25/24 History Metoprolol Succinate [Toprol XL] 50 mg PO DAILY 04/25/24 04/25/24 History Allergies Allergy/AdvReac Type Severity Reaction Status Date / Time No Known Allergies Allergy Verified 04/25/24 09:50 Surgical - Exam Vital Signs Temp Pulse Resp BP Pulse Ox 98.3 F 67 18 143/95 97 04/24/24 21:46 04/24/24 21:46 04/24/24 21:46 04/24/24 21:46 04/24/24 21:46 - General well developed, well nourished, no distress - Respiratory normal respiratory effort - Abdomen Abdomen: soft, non tender, no guarding, no rigid, no rebound - Genitourinary Normal circumcised phallus, normal urethral meatus. There is no active bleeding from the urethral meatus. The scrotum and testes are normal. - Psychiatric oriented to time, oriented to person, oriented to place, speech is normal, memory intact Results - Labs 04/24/24 22:58 04/24/24 22:58 Abnormal Lab Results - Last 24 Hours (Table) 04/24/24 04/24/24 04/24/24 Range/Units 22:58 22:58 22:58 RBC 3.85 L (4.30-5.90) m/uL Hgb 12.4 L (13.0-17.5) gm/dL Hct 37.5 L (39.0-53.0) % Sodium 136 L (137-145) mmol/L Glucose 116 H (74-99) mg/dL Alkaline Phosphatase 190 H (38-126) U/L Total Protein 6.1 L (6.3-8.2) g/dL Albumin 3.2 L (3.5-5.0) g/dL Urine Protein 1+ H (Negative) Urine Blood Large H (Negative) Ur Leukocyte Esterase Moderate H (Negative) Urine RBC >182 H (0-5) /hpf Urine WBC 17 H (0-5) /hpf Urine Mucus Moderate H (None) /hpf Diabetes panel 04/24/24 Range/Units 22:58 Sodium 136 L (137-145) mmol/L Potassium 3.6 (3.5-5.1) mmol/L Chloride 103 (98-107) mmol/L Carbon Dioxide 23 (22-30) mmol/L BUN 18 (9-20) mg/dL Creatinine 0.98 (0.66-1.25) mg/dL Glucose 116 H (74-99) mg/dL Calcium 8.8 (8.4-10.2) mg/dL AST 47 (17-59) U/L ALT 41 (4-49) U/L Alkaline Phosphatase 190 H (38-126) U/L Total Protein 6.1 L (6.3-8.2) g/dL Albumin 3.2 L (3.5-5.0) g/dL Calcium panel 04/24/24 Range/Units 22:58 Calcium 8.8 (8.4-10.2) mg/dL Albumin 3.2 L (3.5-5.0) g/dL Pituitary panel 04/24/24 Range/Units 22:58 Sodium 136 L (137-145) mmol/L Potassium 3.6 (3.5-5.1) mmol/L Chloride 103 (98-107) mmol/L Carbon Dioxide 23 (22-30) mmol/L BUN 18 (9-20) mg/dL Creatinine 0.98 (0.66-1.25) mg/dL Glucose 116 H (74-99) mg/dL Calcium 8.8 (8.4-10.2) mg/dL Adrenal panel 04/24/24 Range/Units 22:58 Sodium 136 L (137-145) mmol/L Potassium 3.6 (3.5-5.1) mmol/L Chloride 103 (98-107) mmol/L Carbon Dioxide 23 (22-30) mmol/L BUN 18 (9-20) mg/dL Creatinine 0.98 (0.66-1.25) mg/dL Glucose 116 H (74-99) mg/dL Calcium 8.8 (8.4-10.2) mg/dL Total Bilirubin 0.6 (0.2-1.3) mg/dL AST 47 (17-59) U/L ALT 41 (4-49) U/L Alkaline Phosphatase 190 H (38-126) U/L Total Protein 6.1 L (6.3-8.2) g/dL Albumin 3.2 L (3.5-5.0) g/dL - Imaging CT scan - pelvis: report reviewed, image reviewed Assessment and Plan (1) Retention of urine, unspecified Current Visit: Yes Status: Acute Code(s): R33.9 - RETENTION OF URINE, UNSPECIFIED SNOMED Code(s): 445845205 Plan: I explained to the patient that he has sustained urethral injury secondary to the Bryant catheter balloon being inflated within the urethra. If the catheter is removed, and the urinary retention recurs, he will require recatheterization and risk further urethral damage. In view of this, it would be my recommendation that he be discharged home with the Bryant catheter, along with a prescription for tamsulosin. He will follow-up with myself or Dr. Bang in 1 week. The patient has been instructed to remove the catheter 8 to 10 hours prior to that appointment. Please notify me if I can be of any further assistance. Time with Patient: Greater than 30
[2024-04-26] MEDS: ASPIRIN 81 MG PO SCH (09:34)
[2024-04-26] MEDS: METOPROLOL SUCCINATE (ER) 50 MG TAB.ER.24H PO SCH (09:34)
[2024-04-26 10:21] LABS: Basophils # (A) 0.08 X 10*3/uL (0.00-0.10); Basophils % (A) 0.6 %; Eosinophils % (A) 4.9 %; HCT 31.7 % (39.6-50.0); HGB 10.4 g/dL (13.0-17.0); Lymphocytes % (A) 11.3 %; MCH 32.1 pg (27.0-32.0); MCHC 32.8 g/dL (32.0-37.0); MCV 97.8 FL (80.0-97.0); Mean Platelet Volume 9.2 FL (9.5-12.2); Monocytes # (A) 1.21 X 10*3/uL (0.20-1.00); Monocytes % (A) 8.5 %; NRBC Per 100 WBC 0 X 10*3/uL (0.00-0.01); Neutrophils # (A) 10.44 X 10*3/uL (1.80-7.70); Neutrophils % (A) 73.4 %; Platelet Count 273 X 10*3/uL (140-440); RBC 3.24 X 10*6/uL (4.40-5.60); RDW 13.7 % (11.5-14.5); WBC 14.22 X 10*3/uL (4.50-10.00)
[2024-04-26 12:37] LABS: BUN/Creat Ratio 16.67 Ratio (12.00-20.00); Chloride 108 mmol/L (96-109); Glucose 90 mg/dL (70-110); Magnesium 1.8 mg/dL (1.5-2.4); Potassium 3.5 mmol/L (3.5-5.5); Sodium 142 mmol/L (135-145)
[2024-04-26 12:38] LABS: ALT 48 U/L (10-49); AST 50 U/L (14-35); Alkaline Phosphatase 198 U/L (41-126); Calcium 8.1 mg/dL (8.7-10.3); Globulin 2.3 g/dL (1.6-3.3); Total Bilirubin 0.3 mg/dL (0.3-1.2); Total Protein 5.3 g/dL (6.2-8.2)
--- NOTE | 2024-04-26 13:48 | P.DS ---
Providers Date of admission: 04/25/24 02:37 Expected date of discharge: 04/26/24 Attending physician: Jayjay Mata MD Consults: 04/25/24 02:35 Consult Physician Routine Consulting Provider: Rishi Miller Consult Reason/Comments: craven Do you want consulting provider notified?: Yes Primary care physician: Freddy Edwards MD Hospital Course: 78-year-old male with PMH of A-fib on who had initially presented to the emergency room on Thursday with complaints of inability to urinate. A Craven catheter was inserted although the patient reports that it was not draining well and he was sent home. The patient continued to have persistent penile and perineal pain for which she returned to the emergency room on Thursday. The Craven catheter was repositioned and the patient's pain significantly improved. He reported feeling at his baseline at the time of interview and had no additional complaints. CT abdomen pelvis in the emergency room revealed a trace hyperdense material in the posterior aspect of the bladder with mass not excluded along with bilateral perinephric fat stranding with fullness of the right renal collecting system with a nonobstructing right renal stone. There was also a malpositioned Craven catheter terminating in the prostate with the catheter balloon located at the base of the penile shaft. Laboratory evaluation revealed a hemoglobin of 12.4 with UA showing greater than 182 RBCs with 17 WBCs. Urology consulted, recommended discharge home with Craven catheter, start Flomax, follow up in [address] Bang. 04/26 Patient was seen and examined. He reports complete resolution of his symptoms. CBC, CMP significant for WBC 14.22, RBC 3.24, Hg 10.4, Hct 31.7, Ca 8.1, AST 50, alk phos 198, total protein 5.3, alb 3.0. Plans to discharge the patient home on Flomax 0.4 mg PO QD and outpatient follow up with Dr. Bang in 1 week. Discussed possible need for cystoscopy to rule out bladder mass. No signs of UTI he was given a dose of Rocephin, antibiotics will be discontinued on discharge. General: non toxic, no distress, appears at stated age Derm: warm, dry Head: atraumatic, normocephalic, symmetric Eyes: EOMI, no lid lag, anicteric sclera Mouth: no lip lesion, mucus membranes moist Cardiovascular: S1S2 reg, no murmur Lungs: CTA bilateral, no rhonchi, no rales , no accessory muscle use Ext: no gross muscle atrophy, no edema, no contractures Neuro: no focal neuro deficits Psych: Alert, oriented, appropriate affect +Crvaen catheter Discharge Diagnosis: Urinary retention Hematuria likely traumatic Craven Leukocytosis Macrocytic anemia Transaminitis Abnormal UA This complex discharge took 35 minutes to complete. Patient Condition at Discharge: Fair Plan - Discharge Summary Discharge Rx Participant: No New Discharge Prescriptions: New Tamsulosin [Flomax] 0.4 mg PO DAILY #30 cap ALPRAZolam [Xanax] 0.25 mg PO Q8HR PRN 3 Days #9 tab PRN Reason: Anxiety Continue Formoterol Fumarate [Perforomist] 20 mcg INHALATION RT-BID Apixaban [Eliquis] 5 mg PO BID Metoprolol Succinate [Toprol XL] 50 mg PO DAILY Budesonide [Pulmicort] 0.5 mg INHALATION RT-BID Atorvastatin [Lipitor] 40 mg PO HS Aspirin EC [Ecotrin Low Dose] 81 mg PO DAILY Discharge Medication List Apixaban [Eliquis] 5 mg PO BID 04/25/24 [History] Aspirin EC [Ecotrin Low Dose] 81 mg PO DAILY 04/25/24 [History] Atorvastatin [Lipitor] 40 mg PO HS 04/25/24 [History] Budesonide [Pulmicort] 0.5 mg INHALATION RT-BID 04/25/24 [History] Formoterol Fumarate [Perforomist] 20 mcg INHALATION RT-BID 04/25/24 [History] Metoprolol Succinate [Toprol XL] 50 mg PO DAILY 04/25/24 [History] ALPRAZolam [Xanax] 0.25 mg PO Q8HR PRN 3 Days #9 tab 04/26/24 [Rx] Tamsulosin [Flomax] 0.4 mg PO DAILY #30 cap 04/26/24 [Rx] Follow up Appointment(s)/Referral(s): Freddy Edwards MD [Primary Care Provider] - 1-2 days Sukumar Bang MD [STAFF PHYSICIAN] - 05/03/24 Activity/Diet/Wound Care/Special Instructions: Discharge home with Craven catheter. Patient has been instructed to remove his catheter 8 to 10 hours prior to the appointment with Dr. Bang. Patient to see Dr. Hardin on May [address] Bang is not in the office. Discharge Disposition: HOME SELF-CARE
[2024-04-26] MEDS: ACETAMINOPHEN TAB 325 MG TAB PO PRN (22:48)
[2024-04-27] MEDS: MELATONIN 5 MG TABLET PO PRN (00:28)
[2024-04-27 05:17] VITALS: RESP 17
--- NOTE | 2024-04-27 08:33 | P.PN ---
Subjective Progress Note Date: 04/27/24 78-year-old male with PMH of A-fib on Eliquis who had initially presented to the emergency room on Thursday with complaints of inability to urinate. A Bryant catheter was inserted although the patient reports that it was not draining well and he was sent home. The patient continued to have persistent penile and perineal pain for which she returned to the emergency room on Thursday. The Bryant catheter was repositioned and the patient's pain significantly improved. He reported feeling at his baseline at the time of interview and had no additional complaints. CT abdomen pelvis in the emergency room revealed a trace hyperdense material in the posterior aspect of the bladder with mass not excluded along with bilateral perinephric fat stranding with fullness of the right renal collecting system with a nonobstructing right renal stone. There was also a malpositioned Bryant catheter terminating in the prostate with the catheter balloon located at the base of the penile shaft. Laboratory evaluation revealed a hemoglobin of 12.4 with UA showing greater than 182 RBCs with 17 WBCs. Urology consulted, recommended discharge home with Bryant catheter, start Flomax, follow up in [address] Bang. 04/26 Patient was seen and examined. He reports complete resolution of his symptoms. CBC, CMP significant for WBC 14.22, RBC 3.24, Hg 10.4, Hct 31.7, Ca 8.1, AST 50, alk phos 198, total protein 5.3, alb 3.0. Patient has spastic bladder pain which cancelled his discharge. 04/27 Patient was seen and examined. He continues to report bladder spasms. Discussed with Dr. Hardin, PARAG to add antispasmodic for a couple of days. Currently on Rocephin 2g IV QD pending UCx. CBC pending. General: non toxic, no distress, appears at stated age Derm: warm, dry Head: atraumatic, normocephalic, symmetric Eyes: EOMI, no lid lag, anicteric sclera Mouth: no lip lesion, mucus membranes moist Cardiovascular: S1S2 reg, no murmur Lungs: CTA bilateral, no rhonchi, no rales , no accessory muscle use Ext: no gross muscle atrophy, no edema, no contractures Neuro: no focal neuro deficits Psych: Alert, oriented, appropriate affect +Bryant catheter Based on my assessment of this patient, this patient meets a high complexity level of care. Urinary retention: Status post Bryant catheter. Plans to start Flomax and follow up with Dr. Bang in 1 week in the outpatient setting. Bladder spasms: Start Oxybutynin 5 mg PO BID. Hematuria likely traumatic Bryant Leukocytosis: In the setting of bladder spasms and urinary retention, will obtain UCx. Continue Rocephin 2g IV QD for now. Macrocytic anemia Transaminitis possibly statin induced requiring outpatient workup Elevated alk phos: Check Vit D. CODE STATUS: FULL CODE DVT Prophylaxis: Heparin SQ GI Prophylaxis: Designated medical POA if patient is not able to make medical decisions for themselves: Discharge Dispo: Plans for discharge home when UCx resulted and pain improved with outpatient followup with Dr. Bang. I have reviewed the following security sales consultant notes: Urology I have reviewed the results of the following tests: CBC pending I have ordered the following tests: I have discussed the care of this patient with the following independent historian: I have independently interpreted the following test below: I have discussed the management of this patient with the following physician: Dr. Hardin Objective - Vital Signs Vital signs: Vital Signs Temp 98.1 F 04/27/24 03:28 Pulse 65 04/27/24 03:28 Resp 17 04/27/24 03:28 BP 147/80 04/27/24 03:28 Pulse Ox 97 04/27/24 03:28 FiO2 Intake & Output 04/26/24 04/27/24 04/27/24 18:59 06:59 18:59 Intake Total 118 Output Total 2200 2250 Balance -2081 Intake: Oral 118 Output: Urine 2200 2250 Other: Voiding Method Indwelling Catheter Indwelling Catheter - Labs CBC & Chem 7: 04/26/24 06:48 04/26/24 06:48 Labs: Abnormal Lab Results - Last 24 Hours (Table) 04/26/24 04/26/24 Range/Units 06:48 06:48 WBC 14.22 H (4.50-10.00) X 10*3/uL RBC 3.24 L (4.40-5.60) X 10*6/uL Hgb 10.4 L (13.0-17.0) g/dL Hct 31.7 L (39.6-50.0) % MCV 97.8 H (80.0-97.0) FL MCH 32.1 H (27.0-32.0) pg MPV 9.2 L (9.5-12.2) FL Immature Gran # 0.19 H (0.00-0.04) X 10*3/uL Neutrophils # 10.44 H (1.80-7.70) X 10*3/uL Monocytes # 1.21 H (0.20-1.00) X 10*3/uL Eosinophils # 0.70 H (0.04-0.35) X 10*3/uL Calcium 8.1 L (8.7-10.3) mg/dL AST 50 H (14-35) U/L Alkaline Phosphatase 198 H (41-126) U/L Total Protein 5.3 L (6.2-8.2) g/dL Albumin 3.0 L (3.8-4.9) g/dL Albumin/Globulin Ratio 1.30 L (1.60-3.17) Ratio
[2024-04-27 08:59] VITALS: BP 170/84; PULSE 67; TEMP 98.2
[2024-04-27] MEDS: OXYBUTYNIN XL 5 MG TAB.ER.24 PO SCH (10:06)
--- NOTE | 2024-04-27 10:40 | P.PN ---
Subjective Progress Note Date: 04/27/24 Principal diagnosis: Urinary retention, urethral injury Patient continues to experience episodic pain and pressure consistent with bladder spasms. The Bryant catheter is draining clear yellow urine. It has been irrigated and verified to be properly positioned and patent. Objective - Vital Signs Vital signs: Vital Signs Temp 98.2 F 04/27/24 07:00 Pulse 76 04/27/24 08:53 Resp 17 04/27/24 07:00 BP 170/84 04/27/24 07:00 Pulse Ox 95 04/27/24 07:00 FiO2 Intake & Output 04/26/24 04/27/24 04/27/24 18:59 06:59 18:59 Intake Total 118 118 Output Total 2200 2250 Balance -2081 118 Intake: Oral 118 118 Output: Urine 2199 225 Other: Voiding Method Indwelling Catheter Indwelling Catheter - Constitutional General appearance: Present: average body habitus, cooperative, no acute distress - Gastrointestinal Gastrointestinal Comment(s): Soft, non-tender, non-distended. - Psychiatric Psychiatric: Present: A&O x's 3 - Labs CBC & Chem 7: 04/26/24 06:48 04/26/24 06:48 Labs: Abnormal Lab Results - Last 24 Hours (Table) 04/26/24 Range/Units 06:48 Calcium 8.1 L (8.7-10.3) mg/dL AST 50 H (14-35) U/L Alkaline Phosphatase 198 H (41-126) U/L Total Protein 5.3 L (6.2-8.2) g/dL Albumin 3.0 L (3.8-4.9) g/dL Albumin/Globulin Ratio 1.30 L (1.60-3.17) Ratio Microbiology - Last 24 Hours (Table) 04/26/24 09:40 Urine Culture - Final Urine,Catheterized Assessment and Plan (1) Retention of urine, unspecified Current Visit: Yes Status: Acute Code(s): R33.9 - RETENTION OF URINE, UNSPECIFIED SNOMED Code(s): 821295883 Plan: The patient's WBC count has increased. A urine culture was sent, and he is being treated with Rocephin. He is afebrile. Oxybutynin chloride has been prescribed with the hopes that this will diminish the severity of his bladder spasms. This will be held for 48 hours prior to the anticipated time of Bryant catheter removal on May 02, 2024.
[2024-04-27 11:01] LABS: HCT 34.9 % (39.0-53.0); HGB 11.5 gm/dL (13.0-17.5); MCH 32.8 pg (25.0-35.0); MCHC 32.9 g/dL (31.0-37.0); MCV 99.7 fL (80.0-100.0); Mean Platelet Volume 7.3; Platelet Count 325 k/uL (150-450); RDW 13.4 % (11.5-15.5); WBC 10.9 k/uL (3.8-10.6)
--- NOTE | 2024-04-28 07:15 | P.DS ---
Providers Date of admission: 04/25/24 02:37 Expected date of discharge: 04/28/24 Attending physician: Jayjay Mata MD Consults: 04/25/24 02:35 Consult Physician Routine Consulting Provider: Rishi Miller Consult Reason/Comments: craven Do you want consulting provider notified?: Yes Primary care physician: Freddy Edwards MD Hospital Course: 78-year-old male with PMH of A-fib on who had initially presented to the emergency room on Thursday with complaints of inability to urinate. A Craven catheter was inserted although the patient reports that it was not draining well and he was sent home. The patient continued to have persistent penile and perineal pain for which she returned to the emergency room on Thursday. The Craven catheter was repositioned and the patient's pain significantly improved. He reported feeling at his baseline at the time of interview and had no additional complaints. CT abdomen pelvis in the emergency room revealed a trace hyperdense material in the posterior aspect of the bladder with mass not excluded along with bilateral perinephric fat stranding with fullness of the right renal collecting system with a nonobstructing right renal stone. There was also a malpositioned Craven catheter terminating in the prostate with the catheter balloon located at the base of the penile shaft. Laboratory evaluation revealed a hemoglobin of 12.4 with UA showing greater than 182 RBCs with 17 WBCs. Urology consulted, recommended discharge home with Craven catheter, start Flomax, follow up in [address] Bang. 04/26 Patient was seen and examined. He reports complete resolution of his symptoms. CBC, CMP significant for WBC 14.22, RBC 3.24, Hg 10.4, Hct 31.7, Ca 8.1, AST 50, alk phos 198, total protein 5.3, alb 3.0. Patient has spastic bladder pain which cancelled his discharge. 04/27 Patient was seen and examined. He continues to report bladder spasms. Discussed with PARAG Rossi to add antispasmodic for a couple of days. Currently on Rocephin 2g IV QD pending UCx. CBC pending. Patient reported significant improvement in his symptoms later on the day. CBC showed a downtrending leukocytosis. UCx negative. Antibiotics discontinued. D ischarged home with outpatient follow up with Dr. Bang and detailed instructions for Craven catheter. General: non toxic, no distress, appears at stated age Derm: warm, dry Head: atraumatic, normocephalic, symmetric Eyes: EOMI, no lid lag, anicteric sclera Mouth: no lip lesion, mucus membranes moist Cardiovascular: S1S2 reg, no murmur Lungs: CTA bilateral, no rhonchi, no rales , no accessory muscle use Ext: no gross muscle atrophy, no edema, no contractures Neuro: no focal neuro deficits Psych: Alert, oriented, appropriate affect +Craven catheter Discharge Diagnosis: Urinary retention: Status post Craven catheter. Plans to start Flomax and follow up with Dr. Bang in 1 week in the outpatient setting. Bladder spasms: Start Oxybutynin 5 mg PO BID. Hematuria likely traumatic Craven Leukocytosis: Reactive. UCx negative. Rocephin discontinued. Macrocytic anemia Transaminitis possibly statin induced requiring outpatient workup This complex discharge took 35 minutes to complete. Patient Condition at Discharge: Fair Plan - Discharge Summary Discharge Rx Participant: No New Discharge Prescriptions: New Tamsulosin [Flomax] 0.4 mg PO DAILY #30 cap ALPRAZolam [Xanax] 0.25 mg PO Q8HR PRN 3 Days #9 tab PRN Reason: Anxiety Continue Formoterol Fumarate [Perforomist] 20 mcg INHALATION RT-BID Apixaban [Eliquis] 5 mg PO BID Metoprolol Succinate [Toprol XL] 50 mg PO DAILY Budesonide [Pulmicort] 0.5 mg INHALATION RT-BID Atorvastatin [Lipitor] 40 mg PO HS Aspirin EC [Ecotrin Low Dose] 81 mg PO DAILY Discharge Medication List Apixaban [Eliquis] 5 mg PO BID 04/25/24 [History] Aspirin EC [Ecotrin Low Dose] 81 mg PO DAILY 04/25/24 [History] Atorvastatin [Lipitor] 40 mg PO HS 04/25/24 [History] Budesonide [Pulmicort] 0.5 mg INHALATION RT-BID 04/25/24 [History] Formoterol Fumarate [Perforomist] 20 mcg INHALATION RT-BID 04/25/24 [History] Metoprolol Succinate [Toprol XL] 50 mg PO DAILY 04/25/24 [History] ALPRAZolam [Xanax] 0.25 mg PO Q8HR PRN 3 Days #9 tab 04/26/24 [Rx] Tamsulosin [Flomax] 0.4 mg PO DAILY #30 cap 04/26/24 [Rx] Follow up Appointment(s)/Referral(s): Freddy Edwards MD [Primary Care Provider] - 1-2 days Sukumar Bang MD [STAFF PHYSICIAN] - 05/03/24 11:40 am Patient Instructions/Handouts: Urinary Retention in Men (ED), Enlarged Prostate (BPH) (DC), Craven Catheter Placement and Care (DC), Craven Catheter Removal (DC) Activity/Diet/Wound Care/Special Instructions: Discharge home with Craven catheter. Patient has been instructed to remove his catheter 8 to 10 hours prior to the appointment with Dr. Bang. Patient to see Dr. Hardin on May [address] Bang is not in the office. Discharge Disposition: HOME SELF-CARE
--- NOTE | 2024-06-17 12:11 | CT ---
EXAM: CT Abdomen and Pelvis Without Intravenous Contrast CLINICAL HISTORY: Catheter is not draining, abdominal pain TECHNIQUE: Axial computed tomography images of the abdomen and pelvis without intravenous contrast. CTDI is 8.7 mGy and DLP is 573.7 mGy-cm. This CT exam was performed using one or more of the following dose reduction techniques: automated exposure control, adjustment of the mA and/or kV according to patient size, and/or use of iterative reconstruction technique. COMPARISON: None FINDINGS: Lung bases: Probable lower lung atelectasis. ABDOMEN: Liver:Unremarkable. Gallbladder and bile ducts:Unremarkable. No calcified stones. No ductal dilation. Pancreas:Unremarkable. No ductal dilation. Spleen:Unremarkable. No splenomegaly. Adrenals:Unremarkable. No mass. Kidneys and ureters:Nonspecific bilateral perinephric fat stranding. Mild fullness of the right renal collecting system. Punctate nonobstructing right renal stone. No obstructing ureteral stone identified. Stomach and bowel: Large amount of stool in the colon. No small bowel extraction. Evaluation of the stomach is limited by under distention. No mucosal thickening. PELVIS: Appendix:Appendix is not definitely visualized on this exam. Bladder:Nonspecific trace hyperdense material in the posterior aspect of the bladder. Blood products versus debris versus mass cannot be excluded. Malpositioned Bryant catheter, terminating in the prostate. The Bryant catheter balloon is located in the base of the penile shaft. No stones. Reproductive:Borderline size of the prostate. ABDOMEN and PELVIS: Intraperitoneal space:Unremarkable. No free air. No significant fluid collection. Bones/joints:Degenerative changes of the spine. No acute fracture. No dislocation. Soft tissues: Small fat-containing right inguinal hernia. Vasculature: Phleboliths in the pelvis. Mild atherosclerotic changes of the vasculature. No abdominal aortic aneurysm. Lymph nodes:Unremarkable. No enlarged lymph nodes. IMPRESSION: 1. Nonspecific trace hyperdense material in the posterior aspect of the bladder. Blood products versus debris versus mass cannot be excluded. 2. Nonspecific bilateral perinephric fat stranding. Mild fullness of the right renal collecting system. Punctate nonobstructing right renal stone. No obstructing ureteral stone identified. 3. Malpositioned Bryant catheter, terminating in the prostate. The Bryant catheter balloon is located in the base of the penile shaft. Radiologist: Barry Aguillon M.D. Electronically Signed: 04/25/24 01:18 Study first marked ready to read at 00:24, study last marked ready to read at 00:24, initial results transmitted at 01:18 [facility]
== END 2024-04-27 14:00 | disposition home or self-care (01) ==
LOC: EC 21:41 → 6NMEDSUR 04-25 02:37
PROVIDERS: ADMIT Internal Medicine; ATTEND Internal Medicine
DX: T83.021A Displacement of indwelling urethral catheter, initial encounter (principal); Y73.8 Miscellaneous gastroenterology and urology devices associated with adverse incidents, not elsewhere classified; R33.9 Retention of urine, unspecified; R31.9 Hematuria, unspecified; N32.89 Other specified disorders of bladder; D53.9 Nutritional anemia, unspecified; D72.829 Elevated white blood cell count, unspecified; R74.01 Elevation of levels of liver transaminase levels; R74.8 Abnormal levels of other serum enzymes; R82.90 Unspecified abnormal findings in urine; F41.9 Anxiety disorder, unspecified; I48.91 Unspecified atrial fibrillation; Z79.01 Long term (current) use of anticoagulants; Z79.51 Long term (current) use of inhaled steroids; Z79.82 Long term (current) use of aspirin; Z79.899 Other long term (current) drug therapy
CPT/HCPCS: 36415; 74176; 80053; 81001; 82150; 82306; 83690; 83735; 84100; 85025; 85027; 87086; 94640; 96361; 96365; 96366; 96375; 99285